=== PATIENT | female | born 1950 | race Caucasian/White ===

== ENCOUNTER 2021-10-22 13:21 | Emergency (ER) | payer OTHER ==
[~2021-10-22] VITALS: Ht 157 cm; Wt 170.0 kg
[2021-10-22 13:49] VITALS: BP 112/78
--- NOTE | 2021-10-22 14:12 | Diagnostic Imaging Report ---
CLINICAL INDICATION: Patient with cough with wheezing. EXAM: Portable chest x-ray, upright view. COMPARISONS: None. FINDINGS: There is cardiomegaly. There is no pulmonary vascular congestion. There is ground-glass opacification of the left lung base, which may be related to left heart border. There is curvilinear opacity in the right lung base, which may represent atelectasis. There is no pleural effusion or pneumothorax, as visualized. There are degenerative spurs involving the thoracic spine. IMPRESSION: 1: There is cardiomegaly with no significant pulmonary vascular congestion. 2: There is mild right lung base atelectasis. Dictated by: Dictated on workstation # [id number]
--- NOTE | 2021-10-22 14:46 | ED Cough/URI ---
General Chief Complaint: Respiratory Problems Nursing Triage Note: PRODUCTIVE COUGH WITH SOME WHEEZING. Source: patient Exam Limitations: no limitations History of Present Illness Date Seen by Provider: Oct 22, 2021 Time Seen by Provider: 13:30 Initial Comments Patient is a 71-year-old female with nasal congestion rhinorrhea, sore throat, cough and wheezing. History of COPD supplemental O2 to dependent on 3 L. Patient has multiple sick family members at home with upper respiratory tract illness. She and family members have been swab for influenza and Covid. Patient has tested negative. She reports persistent sore throat, cough with shortness of breath and wheezing. Patient does not currently have an inhaler no fever chills nausea vomiting or sweats. No chest pain. No leg pain or swelling. No other acute symptoms or complaints Timing/Duration: just prior to arrival Severity/Quality: mild Prior Episodes/Possible Cause: other Modifying Factors: Improves With Other Associated Symptoms: shortness of breath, wheezing Allergies and Home Medications Patient Home Medication List Home Medication List Reviewed: Yes Review of Systems Review of Systems Constitutional: see HPI EENTM: see HPI Respiratory: see HPI Cardiovascular: see HPI Gastrointestinal: see HPI Genitourinary: see HPI Musculoskeletal: see HPI Skin: see HPI Psychiatric/Neurological: See HPI Hematologic/Lymphatic: See HPI Immunological/Allergic: see HPI All Other Systems Reviewed Negative Unless Noted: Yes Past Fknwmkm-Aqkqox-Tpvzrd Hx Patient Social History Tobacco Use?: No Use of E-Cig and/or Vaping dev: No Substance use?: No Alcohol Use?: No Pt feels they are or have been: No Physical Exam Vital Signs - First Documented 10/22/21 13:49 Temp 36.2 Pulse 108 Resp 20 B/P (MAP) 112/78 (89) Pulse Ox 94 O2 Delivery Nasal Cannula O2 Flow Rate 3.00 Capillary Refill : Height: '" Weight: lbs. oz. 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, alert, oriented x 3 Focused Exam Sepsis Stage: Ruled Out Time of Focused Exam: 14:44 Progress/Results/Core Measures Suspected Sepsis SIRS Temperature: Pulse: 108 Respiratory Rate: 20 Blood Pressure 112 /78 Mean: 89 Results/Orders My Orders Orders - CHONGYONI TA Chest 1 View Ap/Pa Only (10/22/21 13:52) Vital Signs/I&O 10/22/21 10/22/21 13:49 13:49 Temp 36.2 Pulse 108 Resp 20 B/P (MAP) 112/78 (89) Pulse Ox 94 O2 Delivery Nasal Cannula Nasal Cannula O2 Flow Rate 3.00 Capillary Refill : Blood Pressure Mean: 89 Departure Communication (Admissions) Chest x-ray: No acute cardiopulmonary compromise Patient with upper respiratory tract infection with mild COPD exacerbation. Chest x-ray clear. Recommendations are continued therapeutic care with PCP follow-up. Return precautions reviewed. Patient verbalizes understanding agreement of discharge instructions prior to departure. Impression Primary Impression: Upper respiratory infection Additional Impression: COPD exacerbation Disposition: 01 HOME, SELF-CARE Condition: Stable Departure-Patient Inst. Decision time for Depature: 14:47 Patient Instructions: Acute Bronchitis, Adult (DC), Exacerbation of COPD (DC) Add. Discharge Instructions: You were evaluated in the emergency department for respiratory tract symptoms with cough and wheezing. A chest x-ray was performed does not show evidence of pneumonia. Your symptoms are consistent with an upper respiratory tract infection with exacerbation of underlying COPD. Please take newly prescribed medication as directed and follow-up with your PCP in 3 to 5 days for reevaluation. Return to the ED if new or worsening symptoms. All discharge instructions reviewed with patient and/or family. Voiced understanding. Scripts Albuterol Sulfate (Proventil Hfa) 6.7 Gm Hfa.aer.ad 6.7 GM INH Q4H, #1 GM Prov: YONI SCHWARZ DO 10/22/21 Benzonatate (TESSALON PERLES) 100 Mg Capsule 100 MG PO TID, #20 CAP Prov: YONI SCHWARZ DO 10/22/21 Azithromycin (Zithromax) 250 Mg Tablet 250 MG PO UD, #6 TAB TAKE 2 TABLETS TODAY, THEN TAKE 1 TABLET DAILY FOR 4 MORE DAYS Prov: YONI SCHWARZ DO 10/22/21 Prednisone (Prednisone) 20 Mg Tab 40 MG PO DAILY, #6 TAB 0 Refills Prov: YONI SCHWARZ DO 10/22/21 YONI SCHWARZ DO Oct 22, 2021 14:45
[2021-10-22] MEDS ORDERED: ALBU6.7H8 INH (14:51)
[2021-10-22] MEDS ORDERED: AZIT250T PO (14:51)
[2021-10-22] MEDS ORDERED: PRD20T PO (14:51)
[2021-10-22] MEDS ORDERED: BENZ100C18 PO (14:51)
== END 2021-10-22 15:00 | disposition home or self-care (01) ==
LOC: ER FS 13:24
DX: J06.9 Acute upper respiratory infection, unspecified (principal); J44.1 Chronic obstructive pulmonary disease with (acute) exacerbation; E66.9 Obesity, unspecified; Z68.44 Body mass index [BMI] 60.0-69.9, adult
CPT/HCPCS: 71045

== ENCOUNTER → 2021-11-12 | Outpatient (CLI) | payer MEDICARE ==
[~2021-11-12] MED LIST: ALBU6.7H8 INH; AZIT250T PO; BENZ100C18 PO; PRD20T PO
[2021-11-12 17:39] LABS: HEMATOCRIT 30 % (35-52); HEMOGLOBIN 8.4 g/dL (11.5-16.0); MEAN CORPUSCULAR HEMOGLOBIN 22 pg (25-34); MEAN CORPUSCULAR HGB CONC 28 g/dL (32-36); MEAN CORPUSCULAR VOLUME 78 fL (80-99); MEAN PLATELET VOLUME 10.7 fL (9.0-12.2); PLATELET COUNT 350 10^3/uL (130-400); WHITE BLOOD COUNT 6.4 10^3/uL (4.3-11.0)
[2021-11-12 17:40] LABS: BASOPHILS % (AUTO) 0 % (0-10); EOSINOPHILS # (AUTO) 0.1 10^3/uL (0.0-0.3); EOSINOPHILS % (AUTO) 2 % (0-10); LYMPHOCYTES # (AUTO) 1.2 X 10^3 (1.0-4.0); LYMPHOCYTES % (AUTO) 19 % (12-44); MONOCYTES # (AUTO) 0.4 X 10^3 (0.0-1.0); MONOCYTES % (AUTO) 7 % (0-12); NEUTROPHILS # (AUTO) 4.6 X 10^3 (1.8-7.8); NEUTROPHILS % (AUTO) 72 % (42-75)
[2021-11-12 17:41] LABS: CREATININE SERUM 0.96 MG/DL (0.60-1.30); POTASSIUM 3.8 MMOL/L (3.6-5.0)
[2021-11-12 17:42] LABS: ALBUMIN 3.2 GM/DL (3.2-4.5); BILIRUBIN,TOTAL 0.3 MG/DL (0.1-1.0); CALCIUM 8.7 MG/DL (8.5-10.1); MAGNESIUM 1.9 MG/DL (1.6-2.4); TOTAL PROTEIN 7.1 GM/DL (6.4-8.2)
[2021-11-12 20:18] LABS: FREE T4 (FREE THYROXINE) 1.06 NG/DL (0.70-1.48)
== END ==
LOC: LAB FS 15:59
PROVIDERS: ATTEND Registered Nurse Emergency
DX: I48.91 Unspecified atrial fibrillation (principal); E78.5 Hyperlipidemia, unspecified; E11.9 Type 2 diabetes mellitus without complications; R60.0 Localized edema; Z86.2 Personal history of diseases of the blood and blood-forming organs and certain disorders involving the immune mechanism
CPT/HCPCS: 36415; 80053; 80061; 83036; 83735; 83880; 84439; 84443; 85025; 87070; 87205

== ENCOUNTER 2021-12-03 19:11 | Inpatient (IN) | payer MEDICARE ==
[~2021-12-03] VITALS: Ht 162.5 cm; Wt 130.2 kg
[2021-12-03 19:42] LABS: BASOPHILS % (AUTO) 0 % (0-10); EOSINOPHILS # (AUTO) 0.1 10^3/uL (0.0-0.3); EOSINOPHILS % (AUTO) 0 % (0-10); HEMATOCRIT 22 % (35-52); LYMPHOCYTES # (AUTO) 0.7 10^3/uL (1.0-4.0); LYMPHOCYTES % (AUTO) 6 % (12-44); MEAN CORPUSCULAR HEMOGLOBIN 22 pg (25-34); MEAN CORPUSCULAR HGB CONC 27 g/dL (32-36); MEAN CORPUSCULAR VOLUME 84 fL (80-99); MONOCYTES # (AUTO) 0.5 10^3/uL (0.0-1.0); MONOCYTES % (AUTO) 5 % (0-12); NEUTROPHILS # (AUTO) 9.9 10^3/uL (1.8-7.8); NEUTROPHILS % (AUTO) 88 % (42-75); PLATELET COUNT 293 10^3/uL (130-400); WHITE BLOOD COUNT 11.3 10^3/uL (4.3-11.0)
--- NOTE | 2021-12-03 19:47 | Diagnostic Imaging Report ---
INDICATION: Shortness of air. TIME OF EXAM: 7:30 PM CORRELATION is made with prior chest 10/22/2021. Heart is enlarged. Enlarged heart does obscure the left lung base. There is central congestion. There appears to be some developing infiltrate in the right base. Upper lung jain are fairly clear. No pneumothorax is seen. IMPRESSION: Cardiomegaly. There appears to be some developing infiltrate or atelectasis in the right base. Dictated by: Dictated on workstation # [id number]
[2021-12-03 20:02] LABS: ANISOCYTOSIS MODERATE; BAND NEUTROPHILS 4 %; HYPOCHROMASIA MARKED; LYMPHOCYTES % (MANUAL) 5 %; METAMYELOCYTES % 1 %; MONOCYTES % (MANUAL) 5 %; NEUTROPHILS % (MANUAL) 85 %; NUCLEATED RED BLOOD CELLS 1; PLATELET ESTIMATE NORMAL; POIKILOCYTOSIS MODERATE; POLYCHROMASIA MODERATE; RBC MORPH ABNORMAL
[2021-12-03 20:03] LABS: ELLIPT/OVALOCYTES SLIGHT; TARGET CELLS SLIGHT; TEAR DROP CELLS SLIGHT
[2021-12-03 20:09] LABS: BUN/CREATININE RATIO 33; CARBON DIOXIDE 35 MMOL/L (21-32); CHLORIDE 88 MMOL/L (98-107); CREATININE SERUM 0.84 MG/DL (0.60-1.30); GFR ESTIMATED 75; POTASSIUM 4.6 MMOL/L (3.6-5.0); SODIUM 134 MMOL/L (135-145)
[2021-12-03 20:10] LABS: ALANINE AMINOTRANSFERASE 8 U/L (0-55); ALKALINE PHOSPHATASE 83 U/L (40-136); BILIRUBIN,TOTAL 0.4 MG/DL (0.1-1.0); CALCIUM 8.8 MG/DL (8.5-10.1); GLUCOSE 229 MG/DL (70-105); TOTAL PROTEIN 7.5 GM/DL (6.4-8.2)
--- NOTE | 2021-12-03 20:52 | ED Respiratory ---
General Chief Complaint: Respiratory Problems Stated Complaint: SOB Nursing Triage Note: Pt brought in by ems with the complaint of shortness of breath. Pt received a duoneb en route to the ED. Pt has a hx of copd and wears home oxygen Source: patient, EMS Exam Limitations: no limitations History of Present Illness Date Seen by Provider: Dec 03, 2021 Time Seen by Provider: 19:20 Initial Comments Patient is a 71-year-old female with history of chronic respiratory failure COPD, morbid obesity who presents with shortness of breath. Patient wears 5 L of oxygen at baseline. She reports feeling short of breath this evening. EMS were contacted and the patient was given an albuterol treatment with return of O2 saturations to upper 90s. Patient also reports feeling anxious. She denies chest pain or chest tightness. Patient did miss her evening dose of anxiety medications. She denies cough, sore throat, fever chills, and sweats. Patient has a chronic nonhealing left pannus wound. She denies increased leg pain or swelling. No other acute symptoms or complaints Timing/Duration: just prior to arrival Severity: mild Prior Episodes/Possible Cause: other Modifying Factors: Improves With Other Associated Symptoms: other Allergies and Home Medications Allergies Coded Allergies: No Known Drug Allergies (Unverified , 12/03/21) Patient Home Medication List Home Medication List Reviewed: Yes Albuterol Sulfate (Proventil Hfa) 6.7 Gm Hfa.aer.ad, 6.7 GM INH Q4H Prescribed by: YONI SCHWARZ on 10/22/21 145 Azithromycin (Zithromax) 250 Mg Tablet, 250 MG PO UD Prescribed by: YONI SCHWARZ on 10/22/21 145 Benzonatate (Tessalon Perles) 100 Mg Capsule, 100 MG PO TID Prescribed by: YONI SCHWARZ on 10/22/21 145 Prednisone (Prednisone) 20 Mg Tab, 40 MG PO DAILY Prescribed by: YONI SCHWARZ on 10/22/21 145 Review of Systems Review of Systems Constitutional: see HPI EENTM: see HPI Respiratory: see HPI Cardiovascular: see HPI Gastrointestinal: see HPI Genitourinary: see HPI Musculoskeletal: see HPI Skin: see HPI Psychiatric/Neurological: See HPI Hematologic/Lymphatic: See HPI Immunological/Allergic: see HPI All Other Systems Reviewed Negative Unless Noted: Yes Past Bknojvp-Imlvki-Btkecu Hx Patient Social History Tobacco Use?: No Smoking Status: Former Smoker Use of E-Cig and/or Vaping dev: No Substance use?: No Alcohol Use?: No Pt feels they are or have been: No Physical Exam Vital Signs - First Documented 12/03/21 19:12 Temp 36.8 Pulse 112 Resp 22 B/P (MAP) 110/57 (74) Pulse Ox 100 O2 Delivery Nasal Cannula O2 Flow Rate 5.00 Capillary Refill : Height: '" Weight: lbs. oz. kg; 68.00 BMI Method: General Appearance: WD/WN, no apparent distress, obese Eyes: Bilateral Eye Normal Inspection, Bilateral Eye PERRL HEENT: PERRL/EOMI Neck: non-tender, supple Respiratory: decreased breath sounds, rhonchi (Mild diffuse), other (Cough tachypnea) Cardiovascular: regular rate, rhythm Gastrointestinal: soft, other (Obesity compromising exam, left lower pannus wound bandaged) Extremities: normal range of motion, non-tender Neurologic/Psychiatric: no motor/sensory deficits, alert, oriented x 3 Focused Exam Sepsis Stage: Ruled Out Progress/Results/Core Measures Suspected Sepsis SIRS Temperature: Pulse: 112 Respiratory Rate: 22 Laboratory Tests 12/03/21 19:25: White Blood Count 11.3H Blood Pressure 110 /57 Mean: 74 Laboratory Tests 12/03/21 19:25: Creatinine 0.84, Platelet Count 293, Total Bilirubin 0.4 Results/Orders Lab Results Laboratory Tests Test 12/03/21 19:25 Range/Units White Blood Count 11.3 H 4.3-11.0 10^3/uL Red Blood Count 2.68 L 3.80-5.11 10^6/uL Hemoglobin 6.0 *L 11.5-16.0 g/dL Hematocrit 22 L 35-52 % Mean Corpuscular Volume 84 80-99 fL Mean Corpuscular Hemoglobin 22 L 25-34 pg Mean Corpuscular Hemoglobin Concent 27 L 32-36 g/dL Red Cell Distribution Width 21.6 H 10.0-14.5 % Platelet Count 293 130-400 10^3/uL Mean Platelet Volume 11.0 9.0-12.2 fL Immature Granulocyte % (Auto) 1 % Neutrophils (%) (Auto) 88 H 42-75 % Lymphocytes (%) (Auto) 6 L 12-44 % Monocytes (%) (Auto) 5 0-12 % Eosinophils (%) (Auto) 0 0-10 % Basophils (%) (Auto) 0 0-10 % Neutrophils # (Auto) 9.9 H 1.8-7.8 10^3/uL Lymphocytes # (Auto) 0.7 L 1.0-4.0 10^3/uL Monocytes # (Auto) 0.5 0.0-1.0 10^3/uL Eosinophils # (Auto) 0.1 0.0-0.3 10^3/uL Basophils # (Auto) 0.0 0.0-0.1 10^3/uL Immature Granulocyte # (Auto) 0.1 0.0-0.1 10^3/uL Neutrophils % (Manual) 85 % Lymphocytes % (Manual) 5 % Monocytes % (Manual) 5 % Metamyelocytes % 1 % Band Neutrophils 4 % Nucleated Red Blood Cells 1 Platelet Estimate NORMAL Polychromasia MODERATE Hypochromasia MARKED Poikilocytosis MODERATE Anisocytosis MODERATE Target Cells SLIGHT Tear Drop Cells SLIGHT Elliptocytes SLIGHT Blood Morphology Comment ABNORMAL Sodium Level 134 L 135-145 MMOL/L Potassium Level 4.6 3.6-5.0 MMOL/L Chloride Level 88 L 98-107 MMOL/L Carbon Dioxide Level 35 H 21-32 MMOL/L Anion Gap 11 5-14 MMOL/L Blood Urea Nitrogen 28 H 7-18 MG/DL Creatinine 0.84 0.60-1.30 MG/DL Estimat Glomerular Filtration Rate 75 BUN/Creatinine Ratio 33 Glucose Level 229 H 70-105 MG/DL Calcium Level 8.8 8.5-10.1 MG/DL Corrected Calcium 9.6 8.5-10.1 MG/DL Total Bilirubin 0.4 0.1-1.0 MG/DL Aspartate Amino Transf (AST/SGOT) 12 5-34 U/L Alanine Aminotransferase (ALT/SGPT) 8 0-55 U/L Alkaline Phosphatase 83 40-136 U/L Troponin I < 0.30 <0.30 NG/ML Pro-B-Type Natriuretic Peptide 6543.0 H <75.0 PG/ML Total Protein 7.5 6.4-8.2 GM/DL Albumin 3.0 L 3.2-4.5 GM/DL My Orders Ravin - YONI SCHWARZ DO Cbc With Automated Diff (12/03/21 19:16) Comprehensive Metabolic Panel (12/03/21 19:16) Troponin I Fs (12/03/21 19:16) Probnp Fs (12/03/21 19:16) Chest 1 View Ap/Pa Only (12/03/21 19:16) Ekg Tracing (12/03/21 19:30) Manual Differential (12/03/21 19:25) Ed Iv/Invasive Line Start (12/03/21 21:12) Vital Signs/I&O 12/03/21 12/03/21 12/03/21 19:12 19:12 21:06 Temp 36.8 Pulse 112 103 Resp 22 18 B/P (MAP) 110/57 (74) 126/74 Pulse Ox 100 100 O2 Delivery Nasal Cannula Nasal Cannula Room Air O2 Flow Rate 5.00 5.00 Capillary Refill : Blood Pressure Mean: 74 Departure Communication (Admissions) Chest x-ray: Cardiomegaly without pulmonary vascular congestion Patient with mild COPD exacerbation with anemia likely contributing to dyspnea. Patient currently on iron. Dr. Bowen to admit to [facility] Impression Primary Impression: Anemia Additional Impression: COPD exacerbation Disposition: ADMITTED INPATIENT Condition: Stable Admissions Decision to Admit Reason: Admit from ER (General) Decision to Admit/Date: Dec 03, 2021 Time/Decision to Admit Time: 20:00 Departure-Patient Inst. Referrals: MARKEL SEBASTIAN MD (PCP/Family) Primary Care Physician YONI SCHWARZ DO Dec 03, 2021 20:52
[2021-12-03] MEDS ORDERED: diphenhydrAMINE 25 MG TAB (BENADRYL) PO PRN (23:00)
[2021-12-03] MEDS ORDERED: NS IV 500 ML 500 ML IV SCH (23:00)
[2021-12-03] MEDS ORDERED: BISACODYL 10 MG SUPP (DULCOLAX) PR PRN (23:00)
[2021-12-03] MEDS ORDERED: diphenhydrAMINE 50 MG/ML INJ (BENADRYL) IVP PRN (23:00)
[2021-12-03] MEDS ORDERED: polyethylene glycoL POWDER 17 GM (MIRALAX) PACK PO PRN (23:00)
[2021-12-03] MEDS ORDERED: ONDANSETRON 4 MG (ZOFRAN) ORAL DISSOLVE TAB PO PRN (23:00)
[2021-12-03] MEDS ORDERED: ONDANSETRON 4 MG/2 ML (SDV) Z0FRAN IV PRN (23:00)
[2021-12-03] MEDS ORDERED: FUROSEMIDE 40 MG/4 ML INJ (LASIX) IVP ONE (23:00)
[2021-12-03] MEDS ORDERED: ANTACID SUSP 30 ML UDC (MYLANTA) PO PRN (23:00)
[2021-12-03 23:12] VITALS: BP 117/63
[2021-12-03 23:23] LABS: BASOPHILS % (AUTO) 0 % (0-10); EOSINOPHILS % (AUTO) 0 % (0-10); HEMATOCRIT 22 % (35-52); LYMPHOCYTES # (AUTO) 0.7 10^3/uL (1.0-4.0); LYMPHOCYTES % (AUTO) 6 % (12-44); MEAN CORPUSCULAR HEMOGLOBIN 22 pg (25-34); MEAN CORPUSCULAR HGB CONC 26 g/dL (32-36); MEAN CORPUSCULAR VOLUME 85 fL (80-99); MEAN PLATELET VOLUME 10.4 fL (9.0-12.2); MONOCYTES # (AUTO) 0.5 10^3/uL (0.0-1.0); MONOCYTES % (AUTO) 5 % (0-12); NEUTROPHILS # (AUTO) 9.8 10^3/uL (1.8-7.8); NEUTROPHILS % (AUTO) 87 % (42-75); PLATELET COUNT 279 10^3/uL (130-400); WHITE BLOOD COUNT 11.2 10^3/uL (4.3-11.0)
[2021-12-03 23:26] LABS: HEMOGLOBIN 5.7 g/dL (11.5-16.0)
[2021-12-04] VITALS (16 sets, daily range): BP systolic 102–134; BP diastolic 53–87
[2021-12-04] MEDS ORDERED: RT-ALBUTEROL HFA 8.5 GM INHALER IH PRN (00:30)
[2021-12-04] MEDS: ALPRAZolam 0.25 MG (XANAX) TAB PO PRN ×4 (00:32→21:04)
[2021-12-04] MEDS: MELATONIN 3 MG TABLET PO PRN (00:32)
[2021-12-04] MEDS: HYDROcodone/APAP 5 MG/325 MG (LORTAB) TAB PO PRN ×3 (00:32→18:35)
[2021-12-04] MEDS ORDERED: FUROSEMIDE 40 MG/4 ML INJ (LASIX) ONE (05:38)
[2021-12-04] MEDS ORDERED: PANTOPRAZOLE 40 MG (PROTONIX) VIAL IV ONE (06:15)
[2021-12-04 06:39] LABS: BASOPHILS % (AUTO) 0 % (0-10); EOSINOPHILS % (AUTO) 0 % (0-10); HEMATOCRIT 23 % (35-52); LYMPHOCYTES # (AUTO) 0.9 10^3/uL (1.0-4.0); LYMPHOCYTES % (AUTO) 9 % (12-44); MEAN CORPUSCULAR HEMOGLOBIN 23 pg (25-34); MEAN CORPUSCULAR HGB CONC 27 g/dL (32-36); MEAN CORPUSCULAR VOLUME 85 fL (80-99); MEAN PLATELET VOLUME 10.7 fL (9.0-12.2); MONOCYTES # (AUTO) 0.7 10^3/uL (0.0-1.0); MONOCYTES % (AUTO) 7 % (0-12); NEUTROPHILS # (AUTO) 8.4 10^3/uL (1.8-7.8); NEUTROPHILS % (AUTO) 82 % (42-75); PLATELET COUNT 279 10^3/uL (130-400); WHITE BLOOD COUNT 10.2 10^3/uL (4.3-11.0)
[2021-12-04 06:43] LABS: HEMOGLOBIN 6.2 g/dL (11.5-16.0)
[2021-12-04 06:51] LABS: POTASSIUM 4.9 MMOL/L (3.6-5.0)
[2021-12-04 06:52] LABS: CALCIUM 8.5 MG/DL (8.5-10.1)
[2021-12-04 06:53] LABS: TOTAL PROTEIN 6.8 GM/DL (6.4-8.2)
[2021-12-04 06:55] LABS: BILIRUBIN,TOTAL 0.6 MG/DL (0.1-1.0)
[2021-12-04 06:57] LABS: CREATININE SERUM 0.98 MG/DL (0.60-1.30)
[2021-12-04] MEDS ORDERED: NS IV 500 ML 500 ML IV SCH (08:00)
[2021-12-04 08:01] LABS: BILIRUBIN,URINE NEGATIVE (NEGATIVE); CLARITY,URINE CLEAR; COLOR,URINE YELLOW; GLUCOSE, URINE (UA) NEGATIVE (NEGATIVE); KETONES,URINE NEGATIVE (NEGATIVE); LEUKOCYTE ESTERASE ,URINE 2+ (NEGATIVE); NITRITE,URINE NEGATIVE (NEGATIVE); PH,URINE 5.5 (5-9); PROTEIN,URINE TRACE (NEGATIVE)
--- NOTE | 2021-12-04 08:03 | History & Physical ---
History of Present Illness HPI/Chief Complaint CC: Severe weakness with SOB HPI: 71 yr old WF who lives with her family who has a history of super morbid obesity and a chronic abdominal wall wound who presented to the ER with SOB. She was fully vaccinated against Covid and boosted but PCR hasn't come back but rapid was negative. She was found to have severe anemia with hemoglobin of 6 and repeat was 5.7 with dark stools. She was given a total of 2 units of blood and Dr. Haddad consulted and will perform EGD in the near future. She is very debilitated. Will update social work on the need to be on alert for jail admission. Source: patient Exam Limitations: clinical condition Date Seen 12/04/21 Time Seen by a Provider: 11:00 Attending Physician Jia Bowen Katrina M MD Referring Physician Date of Admission Dec 03, 2021 at 22:30 Home Medications & Allergies Home Medications Reviewed patient Home Medication Reconciliation performed by pharmacy medication reconciliations sprinkler repair technician and/or nursing. Patients Allergies have been reviewed. Allergies Allergies Coded Allergies No Known Drug Allergies (Unverified12/03/21) Past Qmdqoha-Qrnhpe-Yfbiwd Hx Past Med/Social Hx: Reviewed Nursing Past Med/Soc Hx, Reviewed and Corrections made Patient Social History Marrital Status: single Employed/Student: retired Alcohol Use: Denies Use Smoking Status: Former Smoker Recent Infectious Disease Expo: No Past Medical History Cardiac: Atrial Fibrillation, High Cholesterol, Hypertension Neurological: Neuropathy Genitourinary: Bladder Infection Endocrine: Diabetes, Non-Insulin dep Review of Systems Constitutional: see HPI, malaise, weakness EENTM: no symptoms reported Respiratory: no symptoms reported Cardiovascular: no symptoms reported Gastrointestinal: abdominal pain, loss of appetite, melena, nausea Genitourinary: decreased output Musculoskeletal: back pain, joint pain Skin: no symptoms reported Psychiatric/Neurological: No Symptoms Reported All Other Systems Reviewed Negative Unless Noted: Yes Physical Exam Physical Exam Vital Signs Vital Signs - First Documented 12/03/21 12/04/21 19:12 00:04 Temp 36.8 Pulse 112 Resp 22 B/P (MAP) 110/57 (74) Pulse Ox 100 O2 Delivery Nasal Cannula O2 Flow Rate 5.00 FiO2 40 Capillary Refill : Height, Weight, BMI Height: '" Weight: lbs. oz. kg; 49.11 BMI Method: General Appearance: WD/WN, Anxious, Chronically ill, Mild Distress, Obese Eyes: Bilateral Eye Normal Inspection, Bilateral Eye PERRL HEENT: PERRL/EOMI, Normal ENT Inspection, Pharynx Normal Neck: Full Range of Motion, Normal Inspection, Non Tender, Supple, Carotid Bruit Respiratory: Chest Non Tender, Lungs Clear, No Accessory Muscle Use, No Respiratory Distress, Decreased Breath Sounds Cardiovascular: No Edema, No Gallop, No JVD, No Murmur, Normal Peripheral Pulses, Irregularly Irregular Gastrointestinal: Normal Bowel Sounds, No Organomegaly, No Pulsatile Mass, Non Tender, Soft Back: Normal Inspection, No CVA Tenderness, No Vertebral Tenderness Extremity: Normal Capillary Refill, Normal Inspection, Normal Range of Motion, Non Tender, No Calf Tenderness, No Pedal Edema Neurologic/Psychiatric: Alert, Oriented x3, No Motor/Sensory Deficits, Normal Mood/Affect Skin: Normal Color, Warm/Dry, Other (Draining abdominal wound) Lymphatic: No Adenopathy Results Results/Procedures Labs Laboratory Tests 12/03/21 19:25 12/03/21 23:13 12/04/21 06:03 Patient resulted labs reviewed. Assessment/Plan Admission Diagnosis Assessment: Severe symptomatic anemia GI bleed Transfusion required Hypertension Atrial fibrillation Anticoagulation maintained for CVA prophylaxis currently on hold Abdominal wound chronic Depression with suicidal ideation reported by nurse Super morbid obesity BMI 47 Severe debility Neuropathy Plan: Transfuse Consult surgery Wound care Hold anticoagulation Bagley catheter maintained due to severe debility Needs jail Consult cardiology Admission Status: Inpatient Order (span 2 midnights) Reason for Inpatient Admission: Severe anemia with GI bleed Clinical Quality Measures DVT/VTE Risk/Contraindication: Contraindications-Pharm: Other *list below* Other: severe anemia JIA BOWEN DO Dec 04, 2021 08:03
[2021-12-04 08:28] LABS: BACTERIA,URINE MODERATE /HPF; RBC,URINE 0-2 /HPF; SQUAMOUS EPITHELIAL CELL,UR 0-2 /HPF; WBC,URINE 50-100 /HPF
--- NOTE | 2021-12-04 08:29 | Diagnostic Imaging Report ---
Indication: CHF Frontal chest obtained at 811 a.m. compared to yesterday. There is marked cardiomegaly. There is central vascular congestion and interstitial edema. These findings are similar to the prior study. There is no definite consolidation or pleural fluid. Study is somewhat technically limited. IMPRESSION: Cardiomegaly with central vascular congestion with edema. Technically limited study but no definite consolidation or pleural fluid. Dictated by: Dictated on workstation # [id number]
[2021-12-04] MEDS ORDERED: PANTOPRAZOLE 40 MG (PROTONIX) TAB PO SCH (09:00)
--- NOTE | 2021-12-04 09:03 | Consultation-Cardiology ---
HPI-Cardiology Cardiology Consultation: Date of Consultation 12/04/21 Time Seen by a Provider: 09:30 Date of Admission 12-03-21 Attending Physician Jia Clark DO Admitting Physician Génesis Farris MD Consulting Physician Cory Ash MD HPI: Chief Complaint: Progressive dyspnea Ms. Pedro is a 71 yr old female admitted to [facility] from the ED with increasing SOB. She was found to be anemic (Hgb less than 7.0). She has recently moved to the [facility] from [place]. She does not report any CP, palpitations. She reports she is w/c bound. She reports she has a wound to her abd. She is lethargic this morning and has to be awakened frequently during the exam. She states she has a-fib chronically for which she was on OAC, but does recall the name of the OAC she is taking. No c/o LE swelling. No c/o cough. Review of Systems-Cardiology Review of Systems Constitutional: No chills, No fever; malaise Eyes: No vision change Ears/Nose/Throat: No epistaxis, No recent hearing loss Respiratory: As described under HPI Cardiovascular: As described under HPI Gastrointestinal: No diarrhea, No nausea, No vomiting Genitourinary: No dysuria Musculoskeletal: joint pain, muscle pain Skin: As described under HPI Psychiatric/Neurological: anxiety, depression; No seizure, No focal weakness, No syncope Hematologic: anemia All Other Systems Reviewed Negative Unless Noted: Yes IMP-Zmpqug-Keaxyd Hx Patient Social History Smoking Status: Former Smoker Have you traveled recently?: No Alcohol Use?: No Pt feels they are or have been: No Past Medical History PMH As described under Assessment. Family Medical History Family Medical History: No known family h/o CAD reported Allergies and Home Medications Allergies Coded Allergies: No Known Drug Allergies (Unverified , 12/03/21) Patient Home Medication List Acetaminophen (Tylenol Extra Strength) 500 Mg Tablet, 1,000 MG PO HS, (Reported) Entered as Reported by: BRICE WATERS on 12/04/21 1213 Last Action: Continued Albuterol Sulfate (Albuterol Sulfate) 2.5 Mg/3 Ml Vial.neb, 3 ML NEB Q4H PRN for SHORTNESS OF BREATH, (Reported) Entered as Reported by: BRICE WATERS on 12/04/21 121 Last Action: Continued Amiodarone HCl (Amiodarone HCl) 200 Mg Tablet, 200 MG PO DAILY, (Reported) Entered as Reported by: BRICE WATERS on 12/04/211212 Last Action: Continued Apixaban (Eliquis) 5 Mg Tablet, 5 MG PO BID, (Reported) Entered as Reported by: BRICE WATERS on 12/04/211212 Last Action: Held Ferrous Sulfate (Ferrous Sulfate) 325 Mg Tablet, 325 MG PO BID, (Reported) Entered as Reported by: BRICE WATERS on 12/04/211213 Last Action: Held Furosemide (Furosemide) 40 Mg Tablet, 40 MG PO DAILY, (Reported) Entered as Reported by: BRICE WATERS on 12/04/211212 Last Action: Held Gabapentin (Neurontin) 300 Mg Capsule, 300 MG PO BID, (Reported) Entered as Reported by: BRICE WATERS on 12/04/211212 Last Action: Continued Metformin HCl (Metformin HCl) 1,000 Mg Tablet, 1,000 MG PO BID, (Reported) Entered as Reported by: BRICE WATERS on 12/04/211212 Last Action: Held Potassium Chloride (Potassium Chloride) 20 Meq Tab.er.prt, 20 MEQ PO 1200, (Reported) Entered as Reported by: BRICE WATERS on 12/04/211212 Last Action: Held Discontinued Medications Albuterol Sulfate (Proventil Hfa) 6.7 Gm Hfa.aer.ad, 6.7 GM INH Q4H Discontinued Reason: No Longer Taking Prescribed by: YONI SCHWARZ on 10/22/211450 Last Action: Discontinued Azithromycin (Zithromax) 250 Mg Tablet, 250 MG PO UD Discontinued Reason: No Longer Taking Prescribed by: YONI SCHWARZ on 10/22/211450 Last Action: Discontinued Benzonatate (Tessalon Perles) 100 Mg Capsule, 100 MG PO TID Discontinued Reason: No Longer Taking Prescribed by: YONI SCHWARZ on 10/22/211450 Last Action: Discontinued Prednisone (Prednisone) 20 Mg Tab, 40 MG PO DAILY Discontinued Reason: No Longer Taking Prescribed by: YONI SCHWARZ on 10/22/211450 Last Action: Discontinued Physical Exam-Cardiology Physical Exam Vital Signs/I&O 12/05/21 12/06/21 12/06/21 12/06/21 21:27 00:30 04:30 08:00 Temp 36.4 36.6 36.0 35.6 Pulse 95 95 107 Resp 18 18 16 B/P (MAP) 138/77 (97) 143/64 (90) 115/61 (79) Pulse Ox 95 94 90 O2 Delivery Nasal Cannula Nasal Cannula Nasal Cannula O2 Flow Rate 4.00 4.00 5.00 12/06/21 08:05 Pulse 107 Resp 24 Pulse Ox 94 O2 Delivery OxyMask 12/06/21 00:00 Intake Total 3158 ml Output Total 914 ml Balance 2244 ml Capillary Refill : Constitutional: AAO x 3, other (morbidly obese) HEENT: hearing is well preserved; No oral hygience is good (dental carries) Neck: No carotid bruit; carotid pulses are 2 + bilaterally Respiratory: No accessory muscle use, No respiratory distress; chest expansion is symmetric, chest is bilaterally symmetric, other (good air entry) Cardiovascular: irregularly irregular; No JVD; S1 and S2, systolic murmur Gastrointestinal: No tender; soft; No guarding; audible bowel sounds Extremities: no lower extremity edema bilateral Neurologic/Psychiatric: grossly intact (moves all extremities) Skin: other (wound to abdomen with dressing in place; dressing D&I - not removed) Data Review Labs Laboratory Tests 12/05/21 20:30: Glucometer 179H 12/06/21 05:28: White Blood Count 11.4H, Red Blood Count 3.00L, Hemoglobin 7.0L, Hematocrit 26L, Mean Corpuscular Volume 87, Mean Corpuscular Hemoglobin 23L, Mean Corpuscular Hemoglobin Concent 27L, Red Cell Distribution Width 19.5H, Platelet Count 260, Mean Platelet Volume 10.3, Immature Granulocyte % (Auto) 3, Neutrophils (%) (Auto) 71, Lymphocytes (%) (Auto) 9L, Monocytes (%) (Auto) 16H, Eosinophils (%) (Auto) 0, Basophils (%) (Auto) 0, Neutrophils # (Auto) 8.1H, Lymphocytes # (Auto) 1.0, Monocytes # (Auto) 1.8H, Eosinophils # (Auto) 0.0, Basophils # (Auto) 0.0, Immature Granulocyte # (Auto) 0.3H, Sodium Level 132L, Potassium Level 4.1, Chloride Level 84L, Carbon Dioxide Level 36H, Anion Gap 12, Blood Urea Nitrogen 25H, Creatinine 0.91, Estimat Glomerular Filtration Rate 68, BUN/Creatinine Ratio 27, Glucose Level 155H, Calcium Level 8.6, Corrected Calcium 9.3, Total Bilirubin 0.4, Aspartate Amino Transf (AST/SGOT) 11, Alanine Aminotransferase (ALT/SGPT) 13, Alkaline Phosphatase 74, Total Protein 6.8, Albumin 3.1L Microbiology 12/04/21 Urine Culture - Preliminary, Resulted Mixed Bacterial Chelly Klebsiella pneumoniae Escherichia coli Testing In Progress 12/03/21 MRSA Screen - Final, Complete MRSA not isolated Radiology NAME: ROQUE PEDRO [facility] REC#: [id number] PT STATUS: ADM IN : 1950 PHYSICIAN: JIA CLARK DO ADMIT DATE: 12/03/21 Draft Date of Exam:12/04/21 CHEST 1 VIEW, AP/PA ONLY Indication: CHF Frontal chest obtained at 811 a.m. compared to yesterday. There is marked cardiomegaly. There is central vascular congestion and interstitial edema. These findings are similar to the prior study. There is no definite consolidation or pleural fluid. Study is somewhat technically limited. IMPRESSION: Cardiomegaly with central vascular congestion with edema. Technically limited study but no definite consolidation or pleural fluid. Dictated on workstation # [id number] Dict: 12/04/21822 Trans: 12/04/21828 [facility] [id number] Interpreted by: RUFINA OSORIO MD Electronically signed by: ECG Impression ECG Initial ECG Impression: Atrial Fibrillation A/P-Cardiology Assessment/Admission Diagnosis Progressive dyspnea Anemia of undetermined etiology - management per medical services Chronic a-fib (per pt report) - reports OAC, but is unclear as to exactly what she is taking HTN DM 2 COPD H/O Iron deficiency anemia Clinical Quality Measures DVT/VTE Risk/Contraindication: Contraindications-Pharm: Other *list below* Other: severe anemia HANANE ROTHMAN Dec 04, 2021 09:03
[2021-12-04] MEDS: RT-ALBUTEROL HFA 8.5 GM INHALER IH SCH ×4 (09:07→19:18)
[2021-12-04] MEDS: DOCUSATE SODIUM 100 MG (COLACE) CAP PO SCH ×3 (09:51→20:51)
[2021-12-04] MEDS ORDERED: LACTATED RINGERS 1,000 ML IV ONE (09:51)
--- NOTE | 2021-12-04 10:23 | Consultation - Surgery ---
MYRNA SALOMN 12/04/21 1023: History of Present Illness History of Present Illness Patient Consulted On(catrachita/time) 12/04/21 10:23 Date Seen by Provider: Dec 04, 2021 Time Seen by Provider: 12:50 Reason for Visit: black tarry stools; admitted for COPD exacerbation History of Present Illness Consulted by Dr. Bowen regarding pt's black tarry diarrhea. Pt was admitted for COPD exacerbation. Pt states the color is from her iron supplements. Pt noticed the tarry stools 3 days ago. She is NPO. Pt states she has no history with GI issues. Last bowel movement was last night. Pt may be an unreliable historian. Allergies and Home Medications Allergies Coded Allergies: No Known Drug Allergies (Unverified , 12/03/21) Patient Home Medication List Acetaminophen (Tylenol Extra Strength) 500 Mg Tablet, 1,000 MG PO HS, (Reported) Entered as Reported by: BRICE WATERS on 12/04/211212 Last Action: Continued Albuterol Sulfate (Albuterol Sulfate) 2.5 Mg/3 Ml Vial.neb, 3 ML NEB Q4H PRN for SHORTNESS OF BREATH, (Reported) Entered as Reported by: BRICE WATERS on 12/04/211212 Last Action: Continued Amiodarone HCl (Amiodarone HCl) 200 Mg Tablet, 200 MG PO DAILY, (Reported) Entered as Reported by: BRICE WATERS on 12/04/211212 Last Action: Continued Apixaban (Eliquis) 5 Mg Tablet, 5 MG PO BID, (Reported) Entered as Reported by: BRICE WATERS on 12/04/211212 Last Action: Held Ferrous Sulfate (Ferrous Sulfate) 325 Mg Tablet, 325 MG PO BID, (Reported) Entered as Reported by: BRICE WATERS on 12/04/211213 Last Action: Held Furosemide (Furosemide) 40 Mg Tablet, 40 MG PO DAILY, (Reported) Entered as Reported by: BRICE WATERS on 12/04/211212 Last Action: Held Gabapentin (Neurontin) 300 Mg Capsule, 300 MG PO BID, (Reported) Entered as Reported by: BRICE WATERS on 12/04/211212 Last Action: Continued Metformin HCl (Metformin HCl) 1,000 Mg Tablet, 1,000 MG PO BID, (Reported) Entered as Reported by: BRICE WATERS on 12/04/211212 Last Action: Held Potassium Chloride (Potassium Chloride) 20 Meq Tab.er.prt, 20 MEQ PO 1200, (Reported) Entered as Reported by: BRICE WATERS on 12/04/211212 Last Action: Held Discontinued Medications Albuterol Sulfate (Proventil Hfa) 6.7 Gm Hfa.aer.ad, 6.7 GM INH Q4H Discontinued Reason: No Longer Taking Prescribed by: YONI SCHWARZ on 10/22/211450 Last Action: Discontinued Azithromycin (Zithromax) 250 Mg Tablet, 250 MG PO UD Discontinued Reason: No Longer Taking Prescribed by: YONI SCHWARZ on 10/22/211450 Last Action: Discontinued Benzonatate (Tessalon Perles) 100 Mg Capsule, 100 MG PO TID Discontinued Reason: No Longer Taking Prescribed by: YONI SCHWARZ on 10/22/211450 Last Action: Discontinued Prednisone (Prednisone) 20 Mg Tab, 40 MG PO DAILY Discontinued Reason: No Longer Taking Prescribed by: YONI SCHWARZ on 10/22/211450 Last Action: Discontinued Past Pebmyle-Rklqek-Tidlzc Hx Patient Social History Smoking Status: Former Smoker Alcohol Use?: No Have you traveled recently?: No Respiratory Respiratory Disorders: COPD Cardiovascular Cardiac Disorders: Atrial Fibrillation Psychosocial Behavioral Health Disorders: Anxiety Integumentary Skin/Integumentary Disorders: Recent Skin Changes (pannus wound) Review of Systems-General Constitutional: No chills, No fever EENTM: ear pain; No blurred vision Respiratory: cough, phlegm, short of breath Cardiovascular: chest pain, palpitations Gastrointestinal: RUQ, RLQ, abdominal pain, diarrhea, melena Genitourinary: No decreased output, No pain Musculoskeletal: joint pain, muscle cramps (legs) Skin: dryness, other (pannus wound) Psychiatric/Neurological: Denies Anxiety; Headache Physical Exam-General Problems Physical Exam Vital Signs Vital Signs - First Documented 12/03/21 12/04/21 19:12 00:04 Temp 36.8 Pulse 112 Resp 22 B/P (MAP) 110/57 (74) Pulse Ox 100 O2 Delivery Nasal Cannula O2 Flow Rate 5.00 FiO2 40 Capillary Refill : General Appearance: mild distress, obese Respiratory: rales, wheezing Cardiovascular: no murmur, tachycardia Gastrointestinal: no pulsatile mass, guarding, tenderness (RUQ RLQ) Extremities: normal inspection, no pedal edema Neurologic/Psychiatric: alert, normal mood/affect Skin: normal color, warm/dry Data Review Labs Laboratory Tests 12/03/21 19:25: White Blood Count 11.3H, Red Blood Count 2.68L, Hemoglobin 6.0*L, Hematocrit 22L , Mean Corpuscular Volume 84, Mean Corpuscular Hemoglobin 22L, Mean Corpuscular Hemoglobin Concent 27L, Red Cell Distribution Width 21.6H, Platelet Count 293, Mean Platelet Volume 11.0, Immature Granulocyte % (Auto) 1, Neutrophils (%) (Auto) 88H, Lymphocytes (%) (Auto) 6L, Monocytes (%) (Auto) 5, Eosinophils (%) (Auto) 0, Basophils (%) (Auto) 0, Neutrophils # (Auto) 9.9H, Lymphocytes # ( Auto) 0.7L, Monocytes # (Auto) 0.5, Eosinophils # (Auto) 0.1, Basophils # (Auto) 0.0, Immature Granulocyte # (Auto) 0.1, Neutrophils % (Manual) 85, Lymphocytes % (Manual) 5, Monocytes % (Manual) 5, Metamyelocytes % 1, Band Neutrophils 4, Nucleated Red Blood Cells 1, Platelet Estimate NORMAL, Polychromasia MODERATE, Hypochromasia MARKED, Poikilocytosis MODERATE, Anisocytosis MODERATE, Target Cells SLIGHT, Tear Drop Cells SLIGHT, Elliptocytes SLIGHT, Blood Morphology Comment ABNORMAL, Sodium Level 134L, Potassium Level 4.6, Chloride Level 88L, Carbon Dioxide Level 35H, Anion Gap 11, Blood Urea Nitrogen 28H, Creatinine 0.84, Estimat Glomerular Filtration Rate 75, BUN/Creatinine Ratio 33, Glucose Level 229H, Calcium Level 8.8, Corrected Calcium 9.6, Total Bilirubin 0.4, Aspa rtate Amino Transf (AST/SGOT) 12, Alanine Aminotransferase (ALT/SGPT) 8, Alkaline Phosphatase 83, Troponin I < 0.30, Pro-B-Type Natriuretic Peptide 6543.0H, Total Protein 7.5, Albumin 3.0L 12/03/21 23:13: White Blood Count 11.2H, Red Blood Count 2.55L, Hemoglobin 5.7*L, Hematocrit 22L , Mean Corpuscular Volume 85, Mean Corpuscular Hemoglobin 22L, Mean Corpuscular Hemoglobin Concent 26L, Red Cell Distribution Width 21.2H, Platelet Count 279, Mean Platelet Volume 10.4, Immature Granulocyte % (Auto) 1, Neutrophils (%) (Auto) 87H, Lymphocytes (%) (Auto) 6L, Monocytes (%) (Auto) 5, Eosinophils (%) (Auto) 0, Basophils (%) (Auto) 0, Neutrophils # (Auto) 9.8H, Lymphocytes # (Auto) 0.7L, Monocytes # (Auto) 0.5, Eosinophils # (Auto) 0.0, Basophils # (Auto) 0.0, Immature Granulocyte # (Auto) 0.1 12/03/21 23:33: Influenza Type A Antigen NEGATIVE, Influenza Type B Antigen NEGATIVE, SARS-CoV-2 RNA (RT-PCR) Not Detected 12/04/21 06:03: White Blood Count 10.2, Red Blood Count 2.72L, Hemoglobin 6.2*L, Hematocrit 23L, Mean Corpuscular Volume 85, Mean Corpuscular Hemoglobin 23L, Mean Corpuscular Hemoglobin Concent 27L, Red Cell Distribution Width 20.6H, Platelet Count 279, Mean Platelet Volume 10.7, Immature Granulocyte % (Auto) 2, Neutrophils (%) (Auto) 82H, Lymphocytes (%) (Auto) 9L, Monocytes (%) (Auto) 7, Eosinophils (%) (Auto) 0, Basophils (%) (Auto) 0, Neutrophils # (Auto) 8.4H, Lymphocytes # (Auto) 0.9L, Monocytes # (Auto) 0.7, Eosinophils # (Auto) 0.0, Basophils # (Auto) 0.0, Immature Granulocyte # (Auto) 0.2H, Sodium Level 132L, Potassium Level 4.9, Chloride Level 87L, Carbon Dioxide Level 35H, Anion Gap 10, Blood Urea Nitrogen 32H, Creatinine 0.98, Estimat Glomerular Filtration Rate 62, BUN/Creatinine Ratio 33, Glucose Level 190H, Calcium Level 8.5, Corrected Calcium 9.3, Total Bilirubin 0.6, Aspartate Amino Transf (AST/SGOT) 14, Alanine Aminotransferase (ALT/SGPT) 11, Alkaline Phosphatase 65, Total Protein 6.8, Albumin 3.0L 12/04/21 06:14: B-Type Natriuretic Peptide 672.6H 12/04/21 06:18: Urine Color YELLOW, Urine Clarity CLEAR, Urine pH 5.5, Urine Specific Shannon 1.025H, Urine Protein TRACEH, Urine Glucose (UA) NEGATIVE, Urine Ketones NEGATIVE, Urine Nitrite NEGATIVE, Urine Bilirubin NEGATIVE, Urine Urobilinogen 0.2, Urine Leukocyte Esterase 2+H, Urine RBC (Auto) 2+H, Urine RBC 0-2, Urine WBC 50-100H, Urine Squamous Epithelial Cells 0-2, Urine Crystals NONE, Urine Bacteria MODERATEH, Urine Casts NONE, Urine Mucus NEGATIVE, Urine Culture Indicated YES Assessment/Plan Assessment/Plan Admission Diagonsis COPD Exacerbation Assessment/Plan Melena Abdominal Pain COPD Anemia Perform an EGD Monitor labs Continue COPD regimen Clinical Quality Measures DVT/VTE Risk/Contraindication: Contraindications-Pharm: Other *list below* Other: severe anemia LETICIA GARZA DO 12/04/212025: History of Present Illness History of Present Illness History of Present Illness Consult requested by Dr. Bowen for anemia Patient is 71-year-old female poor historian. Patient with increasing shortness of breath. Patient was COPD on a regular basis. Patient states that she is having some dark-colored stools. She does take iron supplements she states which this is what is causing the discoloration. Patient hemoglobin was less than 7 upon admission. Patient states that it is typically low anyways. She recently moved from [place] to the area. Patient with a chronic pannus wound left lower abdomen. Patient reports being high risk. She also is wheelchair- bound due to a orthopedic injury/procedure. Patient has received 2 units packed red blood cells. Allergies and Home Medications Allergies Coded Allergies: No Known Drug Allergies (Unverified , 12/03/21) Patient Home Medication List Home Medication List Reviewed: Yes Acetaminophen (Tylenol Extra Strength) 500 Mg Tablet, 1,000 MG PO HS, (Reported) Entered as Reported by: BRICE WATERS on 12/04/21 1213 Last Action: Continued Albuterol Sulfate (Albuterol Sulfate) 2.5 Mg/3 Ml Vial.neb, 3 ML NEB Q4H PRN for SHORTNESS OF BREATH, (Reported) Entered as Reported by: BRICE WATERS on 12/04/21 1213 Last Action: Continued Amiodarone HCl (Amiodarone HCl) 200 Mg Tablet, 200 MG PO DAILY, (Reported) Entered as Reported by: BRICE WATERS on 12/04/211212 Last Action: Continued Apixaban (Eliquis) 5 Mg Tablet, 5 MG PO BID, (Reported) Entered as Reported by: BRICE WATERS on 12/04/211212 Last Action: Held Ferrous Sulfate (Ferrous Sulfate) 325 Mg Tablet, 325 MG PO BID, (Reported) Entered as Reported by: BRICE WATERS on 12/04/211213 Last Action: Held Furosemide (Furosemide) 40 Mg Tablet, 40 MG PO DAILY, (Reported) Entered as Reported by: BRICE WATERS on 12/04/211212 Last Action: Held Gabapentin (Neurontin) 300 Mg Capsule, 300 MG PO BID, (Reported) Entered as Reported by: BRICE WATERS on 12/04/211212 Last Action: Continued Metformin HCl (Metformin HCl) 1,000 Mg Tablet, 1,000 MG PO BID, (Reported) Entered as Reported by: BRICE WATERS on 12/04/211212 Last Action: Held Potassium Chloride (Potassium Chloride) 20 Meq Tab.er.prt, 20 MEQ PO 1200, (Reported) Entered as Reported by: BRICE WATERS on 12/04/211212 Last Action: Held Discontinued Medications Albuterol Sulfate (Proventil Hfa) 6.7 Gm Hfa.aer.ad, 6.7 GM INH Q4H Discontinued Reason: No Longer Taking Prescribed by: YONI SCHWARZ on 10/22/211450 Last Action: Discontinued Azithromycin (Zithromax) 250 Mg Tablet, 250 MG PO UD Discontinued Reason: No Longer Taking Prescribed by: YNOI SCHWARZ on 10/22/211450 Last Action: Discontinued Benzonatate (Tessalon Perles) 100 Mg Capsule, 100 MG PO TID Discontinued Reason: No Longer Taking Prescribed by: YONI SCHWARZ on 10/22/211450 Last Action: Discontinued Prednisone (Prednisone) 20 Mg Tab, 40 MG PO DAILY Discontinued Reason: No Longer Taking Prescribed by: YONI SCHWARZ on 10/22/211450 Last Action: Discontinued Past Opawacw-Asfvdj-Meggge Hx Reviewed Nursing Assessment Reviewed/Agree w Nursing PMH: Yes Family Medical History Significant Family History: No Pertinent Family Hx Review of Systems-General Constitutional: No chills, No fever; malaise, weakness EENTM: No ear pain, No blurred vision Respiratory: cough, phlegm, short of breath Cardiovascular: No chest pain, No palpitations Gastrointestinal: No abdominal pain; diarrhea, melena, other (Chronic pannus wound left lower quadrant) Genitourinary: No decreased output, No pain Musculoskeletal: joint pain, muscle cramps (legs) Skin: dryness, other (pannus wound) Psychiatric/Neurological: Anxiety; Denies Depressed All Other Systems Reviewed Negative Unless Noted: Yes (Negative excepted noted.) Physical Exam-General Problems Physical Exam General Appearance: no apparent distress, obese HEENT: PERRL/EOMI, normal ENT inspection Neck: non-tender, supple Respiratory: chest non-tender, no respiratory distress, no accessory muscle use, wheezing Cardiovascular: regular rate, rhythm, tachycardia Gastrointestinal: No guarding; tenderness (RUQ RLQ, chronic skin changes on the right side of the abdomen with a chronic appearing wound) Rectal: deferred Back: normal inspection, no CVA tenderness Extremities: normal inspection, no pedal edema Neurologic/Psychiatric: alert, normal mood/affect Skin: normal color, warm/dry (Skin changes as noted above chronic wound right sided pannus) Lymphatic: no adenopathy Assessment/Plan Assessment/Plan Assessment/Plan Anemia Melena Shortness of breath Chronic pannus abdominal wound COPD exacerbation Chronic atrial fibrillation Patient n.p.o. at this time. Plan for EGD today. Transfuse packed red blood cells as needed. Follow hemoglobin. If no source of GI bleed found on EGD will need to colonoscopy. Question if patient may tolerate prep or not. Supervisory-Addendum Brief Verification & Attestation Participated in pt care: history, MDM, physical Personally performed: exam, history, MDM, supervision of care Care discussed with: Medical Student Procedures: n/a Results interpretation: Verified all documentation Verification and Attestation of Medical Student E/M Service A medical student performed and documented this service in my presence. I reviewed and verified all information documented by the medical student and made modifications to such information, when appropriate. I personally performed the physical exam and medical decision making. Leticia Garza, Dec 04, 2021,20:30 MYRNA SALMON Dec 04, 2021 10:23 LETICIA GARZA DO Dec 04, 2021 20:26
--- NOTE | 2021-12-04 10:32 | Consultation-Cardiology ---
HPI-Cardiology Cardiology Consultation: Date of Consultation 12/04/21 Time Seen by a Provider: 10:00 Date of Admission Attending Physician Jia Bowen DO Admitting Physician Génesis Farris MD Consulting Physician WILMER DUNHAM MD, MA, FACP, FACC, FSCAI, CCDS Physician requesting consult: Dr Bowen HPI: Chief Complaint: CC: Progressive dyspnea HPI Ms. Pedro is a 71 yr old female admitted to [facility] from the ED with increasing SOB. She was found to be anemic (Hgb less than 7.0). She has recently moved to the [facility] from [place]. She does not report any CP, palpitations. She reports she is w/c bound. She reports she has a wound to her abd. She is lethargic this morning and has to be awakened frequently during the exam. She states she has a-fib chronically for which she was on OAC, but does recall the name of the OAC she is taking. No c/o LE swelling. No c/o cough. Review of Systems-Cardiology Review of Systems Constitutional: No chills, No fever; malaise Eyes: No vision change Ears/Nose/Throat: No epistaxis, No recent hearing loss Respiratory: As described under HPI Cardiovascular: As described under HPI Gastrointestinal: No diarrhea, No nausea, No vomiting Genitourinary: No dysuria Musculoskeletal: joint pain, muscle pain Skin: As described under HPI Psychiatric/Neurological: anxiety, depression; No seizure, No focal weakness, No syncope Hematologic: anemia All Other Systems Reviewed Negative Unless Noted: Yes TCM-Zwjhda-Knaelf Hx Patient Social History Smoking Status: Former Smoker Have you traveled recently?: No Alcohol Use?: No Pt feels they are or have been: No Past Medical History PMH As described under Assessment. Family Medical History Family Medical History: No known family h/o CAD reported Allergies and Home Medications Allergies Coded Allergies: No Known Drug Allergies (Unverified , 12/03/21) Patient Home Medication List Home Medication List Reviewed: Yes Albuterol Sulfate (Proventil Hfa) 6.7 Gm Hfa.aer.ad, 6.7 GM INH Q4H Prescribed by: YONI SCHWARZ on 10/22/21 1451 Azithromycin (Zithromax) 250 Mg Tablet, 250 MG PO UD Prescribed by: YONI SCHWARZ on 10/22/21 1451 Benzonatate (Tessalon Perles) 100 Mg Capsule, 100 MG PO TID Prescribed by: YONI SCHWARZ on 10/22/21 1451 Prednisone (Prednisone) 20 Mg Tab, 40 MG PO DAILY Prescribed by: YONI SCHWARZ on 10/22/21 1451 Physical Exam-Cardiology Physical Exam Vital Signs/I&O 12/03/21 12/03/21 12/04/21 12/04/21 23:00 23:12 00:04 01:24 Temp 35.8 36.8 35.6 Pulse 118 112 106 Resp 24 B/P (MAP) 117/63 (81) 110/63 Pulse Ox 95 91 100 100 O2 Delivery Nasal Cannula Nasal Cannula Nasal Cannula O2 Flow Rate 5.00 5.00 5.00 FiO2 40 12/04/21 12/04/21 12/04/21 12/04/21 01:49 04:33 04:34 09:04 Temp 36.0 35.4 35.4 35.9 Pulse 100 103 107 96 Resp 20 B/P (MAP) 107/79 134/67 134/67 (89) 115/72 (86) Pulse Ox 95 92 93 92 O2 Delivery Nasal Cannula Nasal Cannula Nasal Cannula Nasal Cannula O2 Flow Rate 5.00 4.00 4.00 4.00 Capillary Refill : Constitutional: AAO x 3, other (morbidly obese) HEENT: hearing is well preserved; No oral hygience is good (dental carries) Neck: No carotid bruit; carotid pulses are 2 + bilaterally Respiratory: No accessory muscle use, No respiratory distress; chest expansion is symmetric, chest is bilaterally symmetric, other (good air entry) Cardiovascular: irregularly irregular; No JVD; S1 and S2, systolic murmur Gastrointestinal: No tender; soft; No guarding; audible bowel sounds Extremities: no lower extremity edema bilateral Neurologic/Psychiatric: grossly intact (moves all extremities) Skin: other (wound to abdomen with dressing in place; dressing D&I - not removed) Data Review Labs Laboratory Tests 12/03/21 19:25: White Blood Count 11.3H, Red Blood Count 2.68L, Hemoglobin 6.0*L, Hematocrit 22L , Mean Corpuscular Volume 84, Mean Corpuscular Hemoglobin 22L, Mean Corpuscular Hemoglobin Concent 27L, Red Cell Distribution Width 21.6H, Platelet Count 293, Mean Platelet Volume 11.0, Immature Granulocyte % (Auto) 1, Neutrophils (%) (Auto) 88H, Lymphocytes (%) (Auto) 6L, Monocytes (%) (Auto) 5, Eosinophils (%) (Auto) 0, Basophils (%) (Auto) 0, Neutrophils # (Auto) 9.9H, Lymphocytes # (Auto) 0.7L, Monocytes # (Auto) 0.5, Eosinophils # (Auto) 0.1, Basophils # (Auto) 0.0, Immature Granulocyte # (Auto) 0.1, Neutrophils % (Manual) 85, Lymphocytes % (Manual) 5, Monocytes % (Manual) 5, Metamyelocytes % 1, Band Neutrophils 4, Nucleated Red Blood Cells 1, Platelet Estimate NORMAL, Polychromasia MODERATE, Hypochromasia MARKED, Poikilocytosis MODERATE, Anisocytosis MODERATE, Target Cells SLIGHT, Tear Drop Cells SLIGHT, Elliptocytes SLIGHT, Blood Morphology Comment ABNORMAL, Sodium Level 134L, Potassium Level 4.6, Chloride Level 88L, Carbon Dioxide Level 35H, Anion Gap 11, Blood Urea Nitrogen 28H, Creatinine 0.84, Estimat Glomerular Filtration Rate 75, BUN/Creatinine Ratio 33, Glucose Level 229H, Calcium Level 8.8, Corrected Calcium 9.6, Total Bilirubin 0.4, Aspartate Amino Transf (AST/SGOT) 12, Alanine Aminotransferase (ALT/SGPT) 8, Alkaline Phosphatase 83, Troponin I < 0.30, Pro-B-Type Natriuretic Peptide 6543.0H, Total Protein 7.5, Albumin 3.0L 12/03/21 23:13: White Blood Count 11.2H, Red Blood Count 2.55L, Hemoglobin 5.7*L, Hematocrit 22L , Mean Corpuscular Volume 85, Mean Corpuscular Hemoglobin 22L, Mean Corpuscular Hemoglobin Concent 26L, Red Cell Distribution Width 21.2H, Platelet Count 279, Mean Platelet Volume 10.4, Immature Granulocyte % (Auto) 1, Neutrophils (%) (Auto) 87H, Lymphocytes (%) (Auto) 6L, Monocytes (%) (Auto) 5, Eosinophils (%) (Auto) 0, Basophils (%) (Auto) 0, Neutrophils # (Auto) 9.8H, Lymphocytes # (Auto) 0.7L, Monocytes # (Auto) 0.5, Eosinophils # (Auto) 0.0, Basophils # (Auto) 0.0, Immature Granulocyte # (Auto) 0.1 12/03/21 23:33: Influenza Type A Antigen NEGATIVE, Influenza Type B Antigen NEGATIVE, SARS-CoV-2 RNA (RT-PCR) Not Detected 12/04/21 06:03: White Blood Count 10.2, Red Blood Count 2.72L, Hemoglobin 6.2*L, Hematocrit 23L, Mean Corpuscular Volume 85, Mean Corpuscular Hemoglobin 23L, Mean Corpuscular Hemoglobin Concent 27L, Red Cell Distribution Width 20.6H, Platelet Count 279, Mean Platelet Volume 10.7, Immature Granulocyte % (Auto) 2, Neutrophils (%) (Auto) 82H, Lymphocytes (%) (Auto) 9L, Monocytes (%) (Auto) 7, Eosinophils (%) (Auto) 0, Basophils (%) (Auto) 0, Neutrophils # (Auto) 8.4H, Lymphocytes # (Auto) 0.9L, Monocytes # (Auto) 0.7, Eosinophils # (Auto) 0.0, Basophils # (Auto) 0.0, Immature Granulocyte # (Auto) 0.2H, Sodium Level 132L, Potassium Level 4.9, Chloride Level 87L, Carbon Dioxide Level 35H, Anion Gap 10, Blood Urea Nitrogen 32H, Creatinine 0.98, Estimat Glomerular Filtration Rate 62, BUN/Creatinine Ratio 33, Glucose Level 190H, Calcium Level 8.5, Corrected Calcium 9.3, Total Bilirubin 0.6, Aspartate Amino Transf (AST/SGOT) 14, Alanine Aminotransferase (ALT/SGPT) 11, Alkaline Phosphatase 65, Total Protein 6.8, Albumin 3.0L 12/04/21 06:14: B-Type Natriuretic Peptide 672.6H 12/04/21 06:18: Urine Color YELLOW, Urine Clarity CLEAR, Urine pH 5.5, Urine Specific [place] 1.025H, Urine Protein TRACEH, Urine Glucose (UA) NEGATIVE, Urine Ketones NEGATIVE, Urine Nitrite NEGATIVE, Urine Bilirubin NEGATIVE, Urine Urobilinogen 0.2, Urine Leukocyte Esterase 2+H, Urine RBC (Auto) 2+H, Urine RBC 0-2, Urine WBC 50-100H, Urine Squamous Epithelial Cells 0-2, Urine Crystals NONE, Urine B acteria MODERATEH, Urine Casts NONE, Urine Mucus NEGATIVE, Urine Culture Indicated YES Laboratory Tests 12/03/21 19:25 2/1/22 23:13 12/04/21 06:03 A/P-Cardiology Assessment/Admission Diagnosis Progressive dyspnea Anemia of undetermined etiology - management by Dr Bowen HTN DM 2 COPD H/O Iron deficiency anemia Discussion and Recomendations * We recommend eval for any source of bleeding and full treatment of it CAS (Med Svce / Dr Bowen managing). Once a source of bleeding has been excluded or fully treated, we recommend resumption of oral anticoag (without which she is at high risk of thromboembolic stroke) * Monitor labs Clinical Quality Measures DVT/VTE Risk/Contraindication: Contraindications-Pharm: Other *list below* Other: severe anemia WILMER DUNHAM MD FACP FAC CCDS Dec 04, 2021 10:32
--- NOTE | 2021-12-04 11:00 | Physical Therapy Progress Note ---
Therapy Progress Note Pt refused OT and PT today. We will attempt again tomorrow. YONI CHAVEZ PT Dec 04, 2021 11:00
--- NOTE | 2021-12-04 11:42 | Occ Therapy Progress Note ---
Therapy Progress Note OT order received, chart reviewed. Attempted treatment. Pt. can't stay awake, but begins to become upset and cries when prompted to participate. Adamantly refuses all attempts at treatment. Let nursing know. Nursing verbalizes that pt. bed bound in report. [id number] 1, visit x 9minutes Pt. refused SEBASTIAN PRYOR OT Dec 04, 2021 11:42
[2021-12-04] MEDS ORDERED: ACET-2267 PO (12:13)
[2021-12-04] MEDS ORDERED: POTA-179 PO (12:13)
[2021-12-04] MEDS ORDERED: APIX5TAB PO (12:13)
[2021-12-04] MEDS ORDERED: GABA300C PO (12:13)
[2021-12-04] MEDS ORDERED: METF-399 PO (12:13)
[2021-12-04] MEDS ORDERED: AMIO200T65 PO (12:13)
[2021-12-04] MEDS ORDERED: FURO40TA4 PO (12:13)
[2021-12-04] MEDS ORDERED: ALBU2.5V4 NEB (12:13)
[2021-12-04] MEDS ORDERED: FERR-74 PO (12:14)
[2021-12-04] MEDS ORDERED: RT-ALBUTEROL SULF 2.5 MG/3 ML PRE-MIX VIAL IH PRN (13:15)
[2021-12-04] MEDS ORDERED: KETAMINE 50 MG/5 ML SYRINGE ONE (14:34)
[2021-12-04] MEDS ORDERED: PROPOFOL INJECTION 50 ML IV ONE (14:34)
[2021-12-04] MEDS ORDERED: LACTATED RINGERS 1,000 ML IV STA (15:09)
[2021-12-04] MEDS ORDERED: HURRICAINE EXT TUBE (BENZOCAINE) XX PRN (15:15)
--- NOTE | 2021-12-04 18:17 | Progress Note-Post Operative ---
Post-Operative Progess Note Surgeon (s)/Systems Software Manager (s) Surgeon LETICIA GARZA DO Systems Software Manager: na Pre-Operative Diagnosis anemia, melena Post-Operative Diagnosis hiatal hernia, gastritis Procedure & Operative Findings Date of Procedure 12/04/21 Procedure Performed/Findings EGD Anesthesia Type per validation scientist Estimated Blood Loss Estimated blood loss (mL): none Specimens/Packing Specimens Removed na LETICIA GARZA DO Dec 04, 2021 18:17
[2021-12-04] MEDS: GABAPENTIN 300 MG (NEURONTIN) CAP PO SCH (20:33)
[2021-12-04] MEDS: ACETAMINOPHEN 500 MG TAB (TYLENOL) PO SCH (20:34)
[2021-12-05 04:21] VITALS: BP 125/77
--- NOTE | 2021-12-05 06:16 | Progress Note - Surgery ---
MYRNA SALMON 12/05/21 0616: Subjective Date Seen by a Provider: Dec 05, 2021 Time Seen by a Provider: 06:00 Subjective/Events-last exam Pt's EGD yesterday revealed a hiatal hernia and gastritis, but no upper GI bleed. Repeat CXR showed cardiomegaly with central vascular congestion, but no definitive consolidation or pleural fluid. Pt was more awake and responsive to questioning this morning. She stated that she felt "alright." She hadn't had a bowel movement today, but has had flatus. Pt is still NPO. Pt coughed up white phlegm during exam and complained she felt like she "couldn't get enough air." O2 was at 97 on 4L. Pt received 2 PRBC transfusions on 12/04/21. Pt had Abd/Pelvis CT this afternoon, revealing ventral wall abdominal hernias, as well as a fistula emptying at her L pannus wound. Review of Systems General: No Chills; Fatigue HEENT: Head Aches; No Ear Pain Pulmonary: Dyspnea, Cough Cardiovascular: No: Chest Pain, Palpitations Gastrointestinal: No: Nausea, Vomiting Genitourinary: No Dysuria; Frequency (increased from fluids) Musculoskeletal: neck pain (neck felt sore), arm pain Neurological: No: Weakness, Change in speech Focused Exam Respiratory: Crackles, Wheezing Cardiovascular: Systolic Murmur, Tachycardia Skin: normal color, other (L pannus wound) Objective Exam Vital Signs Date Time Temp Pulse Resp B/P (MAP) Pulse Ox O2 Delivery O2 Flow Rate FiO2 12/05/21 04:21 36.4 100 21 125/77 (93) 97 Nasal Cannula 4.00 12/04/21 23:41 36.0 96 19 120/62 (81) 92 Nasal Cannula 4.00 12/04/21 20:30 Nasal Cannula 4.00 12/04/21 20:00 36.5 96 20 125/60 (81) 95 Nasal Cannula 4.00 12/04/21 19:18 95 Nasal Cannula 4.00 12/04/21 15:50 36.2 97 20 131/83 (99) 91 Nasal Cannula 4.00 12/04/21 15:20 102 16 93 Nasal Cannula 4 12/04/21 15:15 101 16 93 OxyMask 10 12/04/21 15:10 94 16 100 OxyMask 10 12/04/21 14:28 36.1 95 20 130/62 97 Nasal Cannula 4.00 12/04/21 12:16 95 Nasal Cannula 4.00 12/04/21 11:42 35.6 99 129/85 95 Nasal Cannula 4.00 12/04/21 11:34 35.5 116/59 (78) 90 Nasal Cannula 4.00 12/04/21 11:25 35.5 96 20 116/59 90 Nasal Cannula 4.00 12/04/21 09:04 35.9 96 20 115/72 (86) 92 Nasal Cannula 4.00 12/04/21 09:00 Nasal Cannula 4.00 I & O 12/05/21 07:00 Intake Total 1890 ml Output Total 1025 ml Balance 865 ml Capillary Refill : General Appearance: No Apparent Distress, Obese HEENT: PERRL/EOMI, Normal ENT Inspection Neck: Full Range of Motion, Normal Inspection (said it was sore) Respiratory: Crackles, Wheezing Cardiovascular: Systolic Murmur, Tachycardia Peripheral Pulses: 3+ Radial Pulses (R), 3+ Radial Pulses (L) Gastrointestinal: normal bowel sounds, non tender, soft Extremity: Normal Inspection, No Pedal Edema Neurologic/Psychiatric: Alert, Normal Mood/Affect Skin: Normal Color, Warm/Dry Results Lab Laboratory Tests 12/04/21 06:14: B-Type Natriuretic Peptide 672.6H 12/04/21 06:18: Urine Color YELLOW, Urine Clarity CLEAR, Urine pH 5.5, Urine Specific [place] 1.025H, Urine Protein TRACEH, Urine Glucose (UA) NEGATIVE, Urine Ketones NEGATIVE, Urine Nitrite NEGATIVE, Urine Bilirubin NEGATIVE, Urine Urobilinogen 0.2, Urine Leukocyte Esterase 2+H, Urine RBC (Auto) 2+H, Urine RBC 0-2, Urine WBC 50-100H, Urine Squamous Epithelial Cells 0-2, Urine Crystals NONE, Urine Bacteria MODERATEH, Urine Casts NONE, Urine Mucus NEGATIVE, Urine Culture Indicated YES 12/04/21 11:35: Glucometer 140H Assessment/Plan Assessment/Plan Assessment/Plan Anemia of undetermined etiology Melena Progressive Dypsnea Chronic pannus abdominal wound Fistula Ventral wall abdominal hernias COPD Chronic atrial fibrillation Colonoscopy Scheduled for a.m., pt is bowel prepping Transfuse PRBCs as needed Cardiology has been consulted Monitor Hgb Clinical Quality Measures DVT/VTE Risk/Contraindication: Contraindications-Pharm: Other *list below* Other: severe anemia LETICIA HADDAD DO 12/05/21 1628: Subjective Subjective/Events-last exam Patient on clears. Hgb stable. patient has started prep. Increased ouput of wound on abdomen. Family present and says has chronic fistula. Shortness of breath at times. No other complaints except wanting food. Denies fever sweats chills or chest pain at this time. Objective Exam General Appearance: No Apparent Distress, Obese HEENT: PERRL/EOMI, Normal ENT Inspection Neck: Full Range of Motion, Normal Inspection (said it was sore) Respiratory: Crackles, Wheezing Cardiovascular: No JVD, Tachycardia Gastrointestinal: non tender, soft, other (chronic skin changes and excoriation with succus appearing output.) Extremity: Normal Inspection, Non Tender Neurologic/Psychiatric: Alert, Normal Mood/Affect Skin: Normal Color, Warm/Dry, Other (chronic skin changes abdomen) Assessment/Plan Assessment/Plan Assessment/Plan Anemia of undetermined etiology Melena Progressive Dypsnea Chronic pannus abdominal wound Fistula Ventral wall abdominal hernias COPD Chronic atrial fibrillation Colonoscopy Scheduled for a.m., pt is bowel prepping Transfuse PRBCs as needed Cardiology has been consulted Monitor Hgb Chronic fistula, patient too high risk currently and she does not want anything done with it. Supervisory-Addendum Brief Verification & Attestation Participated in pt care: history, MDM, physical Personally performed: exam, history, MDM, supervision of care Care discussed with: Medical Student Procedures: n/a Results interpretation: Verified all documentation Verification and Attestation of Medical Student E/M Service A medical student performed and documented this service in my presence. I reviewed and verified all information documented by the medical student and made modifications to such information, when appropriate. I personally performed the physical exam and medical decision making. Leticia Haddad, Dec 05, 2021,16:28 MYRNA SALMON Dec 05, 2021 06:16 LETICIA HADDAD DO Dec 05, 2021 16:28
[2021-12-05 07:53] VITALS: BP 91/51
[2021-12-05] MEDS ORDERED: GOLYTELY POWDER 4000 ML BTL PO ONE (09:00)
--- NOTE | 2021-12-05 09:00 | Physical Therapy Progress Note ---
Therapy Progress Note Patient refused therapy services. Patient reports that she does not ambulate at home and is in her w/c all day long. Her family helps to transfer her using a [place] lift at home. Patient reports that she does not stand ever and has not for years. She also reports she toilets in her bed at home. Therapy will be attempted again tomorrow. 1 ref CY HALL PT Dec 05, 2021 09:00
[2021-12-05 09:20] LABS: BASOPHILS % (AUTO) 0 % (0-10); EOSINOPHILS # (AUTO) 0.1 10^3/uL (0.0-0.3); EOSINOPHILS % (AUTO) 1 % (0-10); HEMATOCRIT 24 % (35-52); LYMPHOCYTES # (AUTO) 0.8 10^3/uL (1.0-4.0); LYMPHOCYTES % (AUTO) 8 % (12-44); MEAN CORPUSCULAR HEMOGLOBIN 24 pg (25-34); MEAN CORPUSCULAR HGB CONC 28 g/dL (32-36); MEAN CORPUSCULAR VOLUME 85 fL (80-99); MEAN PLATELET VOLUME 10.1 fL (9.0-12.2); MONOCYTES # (AUTO) 0.9 10^3/uL (0.0-1.0); MONOCYTES % (AUTO) 9 % (0-12); NEUTROPHILS # (AUTO) 8.5 10^3/uL (1.8-7.8); NEUTROPHILS % (AUTO) 81 % (42-75); PLATELET COUNT 258 10^3/uL (130-400); WHITE BLOOD COUNT 10.6 10^3/uL (4.3-11.0)
[2021-12-05 09:28] LABS: HEMOGLOBIN 6.8 g/dL (11.5-16.0)
[2021-12-05 09:29] LABS: POTASSIUM 4.5 MMOL/L (3.6-5.0)
[2021-12-05 09:31] LABS: CALCIUM 8.5 MG/DL (8.5-10.1)
[2021-12-05 09:32] VITALS: BP 124/77
[2021-12-05 09:32] LABS: TOTAL PROTEIN 6.6 GM/DL (6.4-8.2)
[2021-12-05 09:34] LABS: BILIRUBIN,TOTAL 0.6 MG/DL (0.1-1.0)
[2021-12-05 09:36] LABS: CREATININE SERUM 0.92 MG/DL (0.60-1.30)
[2021-12-05] MEDS: PANTOPRAZOLE 40 MG (PROTONIX) VIAL IV SCH (09:46)
[2021-12-05] MEDS: ALPRAZolam 0.25 MG (XANAX) TAB PO PRN (09:47)
[2021-12-05] MEDS: GABAPENTIN 300 MG (NEURONTIN) CAP PO SCH ×2 (09:47→20:57)
[2021-12-05] MEDS: HYDROcodone/APAP 5 MG/325 MG (LORTAB) TAB PO PRN (09:47)
[2021-12-05] MEDS: AMIODARONE 200 MG (CORDARONE) TAB PO SCH (09:47)
[2021-12-05] MEDS: DOCUSATE SODIUM 100 MG (COLACE) CAP PO SCH ×2 (09:47→20:58)
--- NOTE | 2021-12-05 10:21 | Anesthesia-General Post-Op ---
MAC Patient Condition Mental Status/LOC: Same as Preop Cardiovascular: Satisfactory Nausea/Vomiting: Absent Respiratory: Satisfactory Pain: Controlled Complications: Absent Post Op Complications Complications None Follow Up Care/Instructions Patient Instructions None needed. Anesthesiology Discharge Order Discharge Order Patient is doing well, no complaints, stable vital signs, no apparent adverse anesthesia problems. No complications reported per nursing. LOC ARENAS CRNA Dec 05, 2021 10:21
[2021-12-05] MEDS: RT-ALBUTEROL HFA 8.5 GM INHALER IH SCH ×3 (10:23→18:39)
[2021-12-05] MEDS ORDERED: DIATRIZOATE MEGLUM/SODIUM 37% 120 ML (GASTROGRAFIN) PO ONE (10:30)
--- NOTE | 2021-12-05 11:05 | Progress Note - Cardiology ---
Cardiology SOAP Progress Note Subjective: Reports gen malaise and weakness Reports diarrhea Denies cp or palp or syncope or shortness of breath at rest Objective: I&O/Vital Signs 12/04/21 12/05/21 12/05/21 12/05/21 23:41 04:21 07:53 09:32 Temp 36.0 36.4 35.2 Pulse 96 100 103 Resp 22 B/P (MAP) 120/62 (81) 125/77 (93) 91/51 (64) 124/77 (93) Pulse Ox 92 97 97 O2 Delivery Nasal Cannula Nasal Cannula Nasal Cannula O2 Flow Rate 4.00 4.00 4.00 12/05/21 00:00 Intake Total 1620 ml Output Total 875 ml Balance 745 ml Constitutional: AAO x 3, other (morbidly obese) Respiratory: No accessory muscle use, No respiratory distress; chest expansion is symmetric, chest is bilaterally symmetric, other (good air entry) Cardiovascular: irregularly irregular; No JVD; S1 and S2, systolic murmur Gastrointestional: No tender; soft; No guarding; audible bowel sounds Extremities: no lower extremity edema bilateral Neurologic/Psychiatric: grossly intact (moves all extremities) Skin: normal color, other (L pannus wound) Results/Procedures: Labs Laboratory Tests 12/04/21 11:35: Glucometer 140H 12/05/21 09:10: White Blood Count 10.6, Red Blood Count 2.85L, Hemoglobin 6.8*L, Hematocrit 24L, Mean Corpuscular Volume 85, Mean Corpuscular Hemoglobin 24L, Mean Corpuscular Hemoglobin Concent 28L, Red Cell Distribution Width 19.5H, Platelet Count 258, Mean Platelet Volume 10.1, Immature Granulocyte % (Auto) 2, Neutrophils (%) (Auto) 81H, Lymphocytes (%) (Auto) 8L, Monocytes (%) (Auto) 9, Eosinophils (%) (Auto) 1, Basophils (%) (Auto) 0, Neutrophils # (Auto) 8.5H, Lymphocytes # (Auto) 0.8L, Monocytes # (Auto) 0.9, Eosinophils # (Auto) 0.1, Basophils # (Auto) 0.0, Immature Granulocyte # (Auto) 0.2H, Sodium Level 133L, Potassium Level 4.5, Chloride Level 88L, Carbon Dioxide Level 36H, Anion Gap 9, Blood Urea Nitrogen 28H, Creatinine 0.92, Estimat Glomerular Filtration Rate 67, BUN/Creatinine Ratio 30, Glucose Level 154H, Calcium Level 8.5, Corrected Calcium 9.3, Total Bilirubin 0.6, Aspartate Amino Transf (AST/SGOT) 10, Alanine Aminotransferase (ALT/SGPT) 10, Alkaline Phosphatase 69, Total Protein 6.6, Albumin 3.0L Microbiology 12/03/21 MRSA Screen - Final, Complete MRSA not isolated Laboratory Tests 12/03/21 19:25 12/03/21 23:13 12/04/21 06:03 12/05/21 09:10 A/P: Assessment: Shortness of breath, currently stable Diarrhea - managed by Dr Bowen Anemia of undetermined etiology - managed by Dr Bowen Chronic a-fib (per pt report) - reports taking OAC, but does not know which HTN DM 2 COPD H/O Iron deficiency anemia Plan: * Once a source of bleeding has been excluded or fully treated, we recommend to her attending physician to resume oral anticoag. * Monitor labs WILMER DUNHAM MD FACP FACC CCDS Dec 05, 2021 11:05
[2021-12-05 12:05] VITALS: BP 122/61
--- NOTE | 2021-12-05 12:29 | Diagnostic Imaging Report ---
PROCEDURE: CT abdomen and pelvis without contrast. TECHNIQUE: Multiple contiguous axial images were obtained through the abdomen and pelvis without the use of intravenous contrast. Auto Exposure Controls were utilized during the CT exam to meet ALARA standards for radiation dose reduction. INDICATION: Chronic left lower abdominal nonhealing wound and pain. FINDINGS: There are 2 separate ventral abdominal wall hernias. Midline supraumbilical hernia is comprised of much of the mid stomach as well as omental fat. That hernial orifice has a diameter of about 11 cm transverse. More inferiorly, at and below the level of the umbilicus is a left paramedian ventral abdominal wall hernia comprised of unobstructed small and large bowel as well as mesenteric and omental fat. This is a broad-based abdominal wall defect with its hernial orifice of about 10 cm as measured in the coronal reconstructions cephalocaudal. There was no inflammatory change within this hernia sac. At the midline at and below the level of the umbilicus there is cutaneous thickening and subcutaneous edema as well as some fluid tracking deep to the skin. That collection measuring 3.4 mm in diameter. There is an adjacent small bowel loop extending just deep to the umbilicus. It is unclear if this is an enterocutaneous fistula. Given a persistent nonhealing wound and the features of regional cellulitis and probable small subcutaneous abscess, would suggest further workup with fistulogram. Allowing for the contrast media within the bowel to clear, cannulation of a soft tissue defect contrast injection and repeat CT scanning to see if we opacify a bowel loop adjacent to this defect suggested. Again, enteric contrast must clear before that would be of any use. The gallbladder is surgically absent. The spleen unremarkable. There is no bile duct dilatation. The kidneys are unobstructed. The adrenals are negative. The pancreas nonacute. There are postsurgical changes of the upper abdomen. There is an enlarged heterogeneous calcified fibroid uterus. No adnexal lesion. There is no free air. There is no small or large bowel obstruction. The aorta is nonaneurysmal. There is bibasilar partial atelectasis and a small hiatal hernia with postsurgical changes across the EG junction. IMPRESSION: 1. Ventral abdominal wall hernias, nonobstructing. Periumbilical subcutaneous edema, vascular congestion, skin thickening and features of regional cellulitis with suspicion for a small 3 cm subcutaneous abscess. Irregular appearing opacified unobstructed bowel loops are matted deep to the abdominal wall at that level, raising the question of enterocutaneous or colocutaneous fistula. Clearance of the contrast from the bowel with repeat CT scanning following fistulogram with injection of the draining skin defect recommended. 2. No bowel, biliary or urinary tract obstruction. Postsurgical changes in a fibroid uterus noted. Dictated by: Dictated on workstation # [id number]
--- NOTE | 2021-12-05 12:46 | Occ Therapy Progress Note ---
Therapy Progress Note OT attempted therapy. Pt. on phone, nods "no" when OT attempts to walk in room. PT attempted earlier and pt. adamant no therapy today. Will attempt again tomorrow. 1025 1, visit SEBASTIAN PRYOR OT Dec 05, 2021 12:46
--- NOTE | 2021-12-05 14:30 | Progress Note ---
Subjective Date Seen by a Provider: Dec 05, 2021 Time Seen by a Provider: 11:45 Subjective/Events-last exam Patient about the same Hemoglobin 6.8 Scopes to be done tomorrow Fistula noted and reviewed CT scan Dr. Haddad ordered Becomes tearful when I talked her about fpc placement and DNR Patient appears to be very end stage Review of Systems General: Fatigue, Malaise Pulmonary: Dyspnea Objective Exam Last Set of Vital Signs Vital Signs Date Time Temp Pulse Resp B/P (MAP) Pulse Ox O2 Delivery O2 Flow Rate FiO2 12/05/21 12:05 36.6 102 16 122/61 (81) 90 Nasal Cannula 4.00 12/04/21 00:04 40 Capillary Refill : I&O Intake and Output 12/04/21 23:59 Intake Total 2170 ml Output Total 1075 ml Balance 1095 ml Intake Oral 1970 ml IV Total 200 ml Output Urine Total 1075 ml # Bowel Movements 1 General: Alert, Oriented X3, Cooperative, No Acute Distress Lungs: Clear to Auscultation, Normal Air Movement Heart: Regular Rate, Normal S1, Normal S2, No Murmurs Psych/Mental Status: Mental Status NL, Mood NL Results Lab Laboratory Tests 12/05/21 09:10: White Blood Count 10.6, Red Blood Count 2.85L, Hemoglobin 6.8*L, Hematocrit 24L, Mean Corpuscular Volume 85, Mean Corpuscular Hemoglobin 24L, Mean Corpuscular Hemoglobin Concent 28L, Red Cell Distribution Width 19.5H, Platelet Count 258, Mean Platelet Volume 10.1, Immature Granulocyte % (Auto) 2, Neutrophils (%) (Auto) 81H, Lymphocytes (%) (Auto) 8L, Monocytes (%) (Auto) 9, Eosinophils (%) (Auto) 1, Basophils (%) (Auto) 0, Neutrophils # (Auto) 8.5H, Lymphocytes # (Auto) 0.8L, Monocytes # (Auto) 0.9, Eosinophils # (Auto) 0.1, Basophils # (Auto) 0.0, Immature Granulocyte # (Auto) 0.2H, Sodium Level 133L, Potassium Level 4.5, Chloride Level 88L, Carbon Dioxide Level 36H, Anion Gap 9, Blood Urea Nitrogen 28H, Creatinine 0.92, Estimat Glomerular Filtration Rate 67, BUN/Creatinine Ratio 30, Glucose Level 154H, Calcium Level 8.5, Corrected Calcium 9.3, Total Bilirubin 0.6, Aspartate Amino Transf (AST/SGOT) 10, Alanine Aminotransferase (ALT/SGPT) 10, Alkaline Phosphatase 69, Total Protein 6.6, Albumin 3.0L Microbiology 12/04/21 Urine Culture - Preliminary, Resulted Mixed Bacterial Chelly Klebsiella pneumoniae Escherichia coli Testing In Progress 12/03/21 MRSA Screen - Final, Complete MRSA not isolated Assessment/Plan Assessment/Plan Assess & Plan/Chief Complaint Assessment: Severe symptomatic anemia GI bleed Transfusion required Hypertension Atrial fibrillation Anticoagulation maintained for CVA prophylaxis currently on hold Abdominal wound chronic due to fistula Depression with suicidal ideation reported by nurse Super morbid obesity BMI 47 Severe debility Neuropathy Plan: Transfuse Consult surgery Wound care Hold anticoagulation Bagley catheter maintained due to severe debility Needs fpc Consult cardiology 12/05/2021: Monitor hemoglobin Scopes tomorrow Needs DNR Needs fpc placement Clinical Quality Measures DVT/VTE Risk/Contraindication: Contraindications-Pharm: Other *list below* Other: severe anemia HARSHA CLARK DO Dec 05, 2021 14:30
[2021-12-05 16:00] VITALS: BP 124/65
[2021-12-05] MEDS: ACETAMINOPHEN 325 MG TABLET PO PRN (18:46)
[2021-12-05 20:00] VITALS: BP 131/72
[2021-12-05] MEDS: ACETAMINOPHEN 500 MG TAB (TYLENOL) PO SCH (20:57)
[2021-12-06] VITALS (8 sets, daily range): BP systolic 110–143; BP diastolic 55–77
[2021-12-06 05:41] LABS: BASOPHILS % (AUTO) 0 % (0-10); EOSINOPHILS % (AUTO) 0 % (0-10); HEMATOCRIT 26 % (35-52); LYMPHOCYTES % (AUTO) 9 % (12-44); MEAN CORPUSCULAR HEMOGLOBIN 23 pg (25-34); MEAN CORPUSCULAR HGB CONC 27 g/dL (32-36); MEAN CORPUSCULAR VOLUME 87 fL (80-99); MEAN PLATELET VOLUME 10.3 fL (9.0-12.2); MONOCYTES # (AUTO) 1.8 10^3/uL (0.0-1.0); MONOCYTES % (AUTO) 16 % (0-12); NEUTROPHILS # (AUTO) 8.1 10^3/uL (1.8-7.8); NEUTROPHILS % (AUTO) 71 % (42-75); PLATELET COUNT 260 10^3/uL (130-400); WHITE BLOOD COUNT 11.4 10^3/uL (4.3-11.0)
--- NOTE | 2021-12-06 05:55 | Progress Note - Surgery ---
MYRNA SALMON 12/06/21 0555: Subjective Date Seen by a Provider: Dec 06, 2021 Time Seen by a Provider: 05:35 Subjective/Events-last exam 71 yo F admitted for COPD exacerbation is experiencing chronic anemia and black tarry stools. Will undergo colonoscopy today. Pt bowel prepped yesterday afternoon and had been NPO prior. Pt states that she feels "alright" and denies being in pain, but is becomes teary about waiting for the scope and wants to eat. Pt less drowsy than previous encounters. Pt's chronic fistula had a new dressing. Pt still SOB and coughing, but denies fevers/chills/chest pain at this time. Review of Systems General: No Chills; Fatigue HEENT: Head Aches, Visual Changes (blurry vision) Pulmonary: Dyspnea, Cough Cardiovascular: No: Chest Pain, Palpitations Gastrointestinal: No: Nausea, Vomiting, Abdominal Pain Genitourinary: No Dysuria, No Incontinence Musculoskeletal: neck pain, arm pain Neurological: Weakness; No: Change in speech Focused Exam Respiratory: Crackles, Wheezing Cardiovascular: Regular Rate, Rhythm, Systolic Murmur Peripheral Pulses: 3+ Radial Pulses (R), 3+ Radial Pulses (L) Skin: warm/dry, other (chronic fistula L torso) Objective Exam Vital Signs Date Time Temp Pulse Resp B/P (MAP) Pulse Ox O2 Delivery O2 Flow Rate FiO2 12/06/21 04:30 36.0 95 18 143/64 (90) 94 Nasal Cannula 4.00 12/06/21 00:30 36.6 95 18 138/77 (97) 95 Nasal Cannula 4.00 12/05/21 21:27 36.4 12/05/21 20:00 36.4 112 20 131/72 (91) 95 Nasal Cannula 4.00 12/05/21 19:45 Nasal Cannula 4.00 12/05/21 19:12 94 Nasal Cannula 4.00 12/05/21 16:00 36.4 85 18 124/65 (84) 94 Nasal Cannula 4.00 12/05/21 12:05 36.6 102 16 122/61 (81) 90 Nasal Cannula 4.00 12/05/21 11:36 95 Nasal Cannula 4.00 12/05/21 09:32 124/77 (93) 12/05/21 09:00 Nasal Cannula 4.00 12/05/21 07:53 35.2 103 22 91/51 (64 97 Nasal Cannula 4.00 I & O 12/06/21 07:00 Intake Total 3158 ml Output Total 914 ml Balance 2244 ml Capillary Refill : General Appearance: No Apparent Distress, Obese HEENT: PERRL/EOMI, Normal ENT Inspection Neck: Full Range of Motion, Normal Inspection (said it was sore) Respiratory: Crackles, Wheezing Cardiovascular: Regular Rate, Rhythm, Systolic Murmur Peripheral Pulses: 3+ Radial Pulses (R), 3+ Radial Pulses (L) Gastrointestinal: non tender, soft, other (chronic skin changes and excoriation with succus appearing output.) Extremity: Normal Inspection, Pedal Edema Neurologic/Psychiatric: Alert, Depressed Affect Skin: Normal Color, Warm/Dry, Other (chronic skin changes abdomen) Lymphatic: No Adenopathy Results Lab Laboratory Tests 12/05/21 09:10: White Blood Count 10.6, Red Blood Count 2.85L, Hemoglobin 6.8*L, Hematocrit 24L, Mean Corpuscular Volume 85, Mean Corpuscular Hemoglobin 24L, Mean Corpuscular Hemoglobin Concent 28L, Red Cell Distribution Width 19.5H, Platelet Count 258, Mean Platelet Volume 10.1, Immature Granulocyte % (Auto) 2, Neutrophils (%) (Auto) 81H, Lymphocytes (%) (Auto) 8L, Monocytes (%) (Auto) 9, Eosinophils (%) (Auto) 1, Basophils (%) (Auto) 0, Neutrophils # (Auto) 8.5H, Lymphocytes # (Auto) 0.8L, Monocytes # (Auto) 0.9, Eosinophils # (Auto) 0.1, Basophils # (Auto) 0.0, Immature Granulocyte # (Auto) 0.2H, Sodium Level 133L, Potassium Level 4.5, Chloride Level 88L, Carbon Dioxide Level 36H, Anion Gap 9, Blood Urea Nitrogen 28H, Creatinine 0.92, Estimat Glomerular Filtration Rate 67, BUN/Creatinine Ratio 30, Glucose Level 154H, Calcium Level 8.5, Corrected Calcium 9.3, Total Bilirubin 0.6, Aspartate Amino Transf (AST/SGOT) 10, Alanine Aminotransferase (ALT/SGPT) 10, Alkaline Phosphatase 69, Total Protein 6.6, Albumin 3.0L 12/05/21 20:30: Glucometer 179H 12/06/21 05:28: White Blood Count 11.4H, Red Blood Count 3.00L, Hemoglobin 7.0L, Hematocrit 26L, Mean Corpuscular Volume 87, Mean Corpuscular Hemoglobin 23L, Mean Corpuscular Hemoglobin Concent 27L, Red Cell Distribution Width 19.5H, Platelet Count 260, Mean Platelet Volume 10.3, Immature Granulocyte % (Auto) 3, Neutrophils (%) (Auto) 71, Lymphocytes (%) (Auto) 9L, Monocytes (%) (Auto) 16H, Eosinophils (%) (Auto) 0, Basophils (%) (Auto) 0, Neutrophils # (Auto) 8.1H, Lymphocytes # (Auto) 1.0, Monocytes # (Auto) 1.8H, Eosinophils # (Auto) 0.0, Basophils # (Auto) 0.0, Immature Granulocyte # (Auto) 0.3H Microbiology 12/04/21 Urine Culture - Preliminary, Resulted Mixed Bacterial Chelly Klebsiella pneumoniae Escherichia coli Testing In Progress 12/03/21 MRSA Screen - Final, Complete MRSA not isolated Assessment/Plan Assessment/Plan Assessment/Plan Assessment: Anemia of undetermined etiology Melena Progressive Dypsnea Chronic L pannus wound secondary to fistula Ventral wall abdominal hernias COPD Chronic atrial fibrillation UTI Depression with suicidal ideation reported by nurse Colonoscopy Scheduled for a.m. Transfuse PRBCs as needed Cardiology has been consulted Monitor Hgb Chronic fistula, patient too high risk currently and she does not want anything done with it Pt has been spoken to by IM about moving to a [facility] and implementing DNR Clinical Quality Measures DVT/VTE Risk/Contraindication: Contraindications-Pharm: Other *list below* Other: severe anemia LETICIA HADDAD DO 12/06/21 1123: Subjective Subjective/Events-last exam patient unable to take entire prep. No abdominal pain. Still with shortness of breath. NPO currently. Denies n/v fever sweats chills or chest pain. Objective Exam General Appearance: No Apparent Distress, Anxious, Obese HEENT: PERRL/EOMI, Normal ENT Inspection Neck: Full Range of Motion, Normal Inspection (said it was sore) Respiratory: Chest Non Tender, No Accessory Muscle Use, No Respiratory Distres s, Wheezing Cardiovascular: Regular Rate, Rhythm, No JVD Gastrointestinal: non tender, soft, other (chronic skin changes and excoriation with succus appearing output from fistula, abdominal hernias) Extremity: Non Tender, Pedal Edema Neurologic/Psychiatric: Alert, Depressed Affect Skin: Normal Color, Warm/Dry, Other (chronic skin changes abdomen with fistula) Assessment/Plan Assessment/Plan Assessment/Plan Anemia of undetermined etiology Melena Progressive Dypsnea Chronic L pannus wound secondary to fistula Ventral wall abdominal hernias COPD Chronic atrial fibrillation UTI Depression with suicidal ideation reported by nurse Colonoscopy this morning Transfuse PRBCs as needed Cardiology has been consulted Monitor Hgb Chronic fistula, patient too high risk currently and she does not want anything done with it Pt has been spoken to by IM about moving to a [facility] and implementing DNR Supervisory-Addendum Brief Verification & Attestation Participated in pt care: history, MDM, physical Personally performed: exam, history, MDM, supervision of care Care discussed with: Medical Student Procedures: n/a Results interpretation: Verified all documentation Verification and Attestation of Medical Student E/M Service A medical student performed and documented this service in my presence. I reviewed and verified all information documented by the medical student and made modifications to such information, when appropriate. I personally performed the physical exam and medical decision making. Leticia Haddad, Dec 06, 2021,07:23 MYRNA SALMON Dec 06, 2021 05:55 LETICIA HADDAD DO Dec 06, 2021 11:23
[2021-12-06 06:01] LABS: ALBUMIN 3.1 GM/DL (3.2-4.5)
[2021-12-06 06:02] LABS: POTASSIUM 4.1 MMOL/L (3.6-5.0)
[2021-12-06 06:03] LABS: CALCIUM 8.6 MG/DL (8.5-10.1)
[2021-12-06 06:04] LABS: TOTAL PROTEIN 6.8 GM/DL (6.4-8.2)
[2021-12-06 06:06] LABS: BILIRUBIN,TOTAL 0.4 MG/DL (0.1-1.0)
[2021-12-06 06:08] LABS: CREATININE SERUM 0.91 MG/DL (0.60-1.30)
--- NOTE | 2021-12-06 06:32 | Progress Note ---
Subjective Date Seen by a Provider: Dec 06, 2021 Time Seen by a Provider: 10:30 Subjective/Events-last exam Patient doing about the same Tearful about everything EGD showed gastritis 2 days ago and colonoscopy today showed a polyp No evidence of any bleed Check meds labs Hemoglobin stable Patient very declined Review of Systems General: Fatigue, Malaise Objective Exam Last Set of Vital Signs Vital Signs Date Time Temp Pulse Resp B/P (MAP) Pulse Ox O2 Delivery O2 Flow Rate FiO2 12/06/21 04:30 36.0 95 18 143/64 (90) 94 Nasal Cannula 4.00 12/04/21 00:04 40 Capillary Refill : I&O Intake and Output 12/06/21 00:00 Intake Total 3428 ml Output Total 1064 ml Balance 2364 ml Intake Oral 3428 ml Output Urine Total 1060 ml Stool Total 4 ml # Bowel Movements 1 General: Alert, Other (Tearful) Lungs: Clear to Auscultation Heart: Regular Rate Psych/Mental Status: Mental Status NL Results Lab Laboratory Tests 12/05/21 09:10: White Blood Count 10.6, Red Blood Count 2.85L, Hemoglobin 6.8*L, Hematocrit 24L, Mean Corpuscular Volume 85, Mean Corpuscular Hemoglobin 24L, Mean Corpuscular Hemoglobin Concent 28L, Red Cell Distribution Width 19.5H, Platelet Count 258, Mean Platelet Volume 10.1, Immature Granulocyte % (Auto) 2, Neutrophils (%) (Auto) 81H, Lymphocytes (%) (Auto) 8L, Monocytes (%) (Auto) 9, Eosinophils (%) (Auto) 1, Basophils (%) (Auto) 0, Neutrophils # (Auto) 8.5H, Lymphocytes # (Auto) 0.8L, Monocytes # (Auto) 0.9, Eosinophils # (Auto) 0.1, Basophils # (Auto) 0.0, Immature Granulocyte # (Auto) 0.2H, Sodium Level 133L, Potassium Level 4.5, Chloride Level 88L, Carbon Dioxide Level 36H, Anion Gap 9, Blood Urea Nitrogen 28H, Creatinine 0.92, Estimat Glomerular Filtration Rate 67, BUN/Creatinine Ratio 30, Glucose Level 154H, Calcium Level 8.5, Corrected Calcium 9.3, Total Bilirubin 0.6, Aspartate Amino Transf (AST/SGOT) 10, Alanine Aminotransferase (ALT/SGPT) 10, Alkaline Phosphatase 69, Total Protein 6.6, Albumin 3.0L 12/05/21 20:30: Glucometer 179H 12/06/21 05:28: White Blood Count 11.4H, Red Blood Count 3.00L, Hemoglobin 7.0L, Hematocrit 26L, Mean Corpuscular Volume 87, Mean Corpuscular Hemoglobin 23L, Mean Corpuscular Hemoglobin Concent 27L, Red Cell Distribution Width 19.5H, Platelet Count 260, Mean Platelet Volume 10.3, Immature Granulocyte % (Auto) 3, Neutrophils (%) (Auto) 71, Lymphocytes (%) (Auto) 9L, Monocytes (%) (Auto) 16H, Eosinophils (%) (Auto) 0, Basophils (%) (Auto) 0, Neutrophils # (Auto) 8.1H, Lymphocytes # (Auto) 1.0, Monocytes # (Auto) 1.8H, Eosinophils # (Auto) 0.0, Basophils # (Auto) 0.0, Immature Granulocyte # (Auto) 0.3H, Sodium Level 132L, Potassium Level 4.1, Chloride Level 84L, Carbon Dioxide Level 36H, Anion Gap 12, Blood Urea Nitrogen 25H, Creatinine 0.91, Estimat Glomerular Filtration Rate 68, BUN/Creatinine Ratio 27, Glucose Level 155H, Calcium Level 8.6, Corrected Calcium 9.3, Total Bilirubin 0.4, Aspartate Amino Transf (AST/SGOT) 11, Alanine Aminotransferase (ALT/SGPT) 13, Alkaline Phosphatase 74, Total Protein 6.8, Albumin 3.1L Microbiology 12/04/21 Urine Culture - Preliminary, Resulted Mixed Bacterial Chelly Klebsiella pneumoniae Escherichia coli Testing In Progress 12/03/21 MRSA Screen - Final, Complete MRSA not isolated Assessment/Plan Assessment/Plan Assess & Plan/Chief Complaint Assessment: Severe symptomatic anemia GI bleed Transfusion required Hypertension Atrial fibrillation Anticoagulation maintained for CVA prophylaxis currently on hold Abdominal wound chronic due to fistula Depression with suicidal ideation reported by nurse Super morbid obesity BMI 47 Severe debility Neuropathy Plan: Transfuse Consult surgery Wound care Hold anticoagulation Bagley catheter maintained due to severe debility Needs long-term Consult cardiology 12/05/2021: Monitor hemoglobin Scopes tomorrow Needs DNR Needs long-term placement 12/06/2021: Appreciate Dr. Haddad Supportive care Needs DNR Needs long-term placement Clinical Quality Measures DVT/VTE Risk/Contraindication: Contraindications-Pharm: Other *list below* Other: severe anemia HARSHA CLARK DO Dec 06, 2021 06:32
[2021-12-06] MEDS ORDERED: LACTATED RINGERS 1,000 ML IV ONE (07:16)
[2021-12-06] MEDS ORDERED: KETAMINE 50 MG/5 ML SYRINGE ONE (07:19)
[2021-12-06] MEDS ORDERED: PROPOFOL INJECTION 50 ML IV ONE (07:20)
[2021-12-06] MEDS: RT-ALBUTEROL HFA 8.5 GM INHALER IH SCH ×4 (07:53→19:11)
[2021-12-06] MEDS: AMIODARONE 200 MG (CORDARONE) TAB PO SCH (09:07)
[2021-12-06] MEDS: PANTOPRAZOLE 40 MG (PROTONIX) VIAL IV SCH (09:08)
[2021-12-06] MEDS: GABAPENTIN 300 MG (NEURONTIN) CAP PO SCH ×2 (09:08→19:55)
[2021-12-06] MEDS: DOCUSATE SODIUM 100 MG (COLACE) CAP PO SCH ×2 (09:08→19:55)
[2021-12-06] MEDS: ALPRAZolam 0.25 MG (XANAX) TAB PO PRN ×2 (09:11→19:55)
--- NOTE | 2021-12-06 09:13 | Physical Therapy Progress Note ---
Therapy Progress Note Patient unavailable due to procedure. PT may attempt to see patient later today. CY HALL PT Dec 06, 2021 09:13
--- NOTE | 2021-12-06 09:14 | Progress Note - Cardiology ---
Cardiology SOAP Progress Note Subjective: Sitting up in bed Colonoscopy was done this morning No c/o CP or SOB or palpitations Objective: I&O/Vital Signs 12/05/21 12/06/21 12/06/21 12/06/21 21:27 00:30 04:30 08:00 Temp 36.4 36.6 36.0 35.6 Pulse 95 95 107 Resp 18 18 16 B/P (MAP) 138/77 (97) 143/64 (90) 115/61 (79) Pulse Ox 95 94 90 O2 Delivery Nasal Cannula Nasal Cannula Nasal Cannula O2 Flow Rate 4.00 4.00 5.00 12/06/21 08:05 Pulse 107 Resp 24 Pulse Ox 94 O2 Delivery OxyMask 12/06/21 00:00 Intake Total 3158 ml Output Total 914 ml Balance 2244 ml Constitutional: AAO x 3, other (morbidly obese) Respiratory: No accessory muscle use, No respiratory distress; chest expansion is symmetric, chest is bilaterally symmetric, other (good air entry) Cardiovascular: irregularly irregular; No JVD; S1 and S2, systolic murmur Gastrointestional: No tender; soft; No guarding; audible bowel sounds Extremities: no lower extremity edema bilateral Neurologic/Psychiatric: grossly intact (moves all extremities) Skin: warm/dry, other (chronic fistula L torso) Results/Procedures: Labs Laboratory Tests 12/05/21 20:30: Glucometer 179H 12/06/21 05:28: White Blood Count 11.4H, Red Blood Count 3.00L, Hemoglobin 7.0L, Hematocrit 26L, Mean Corpuscular Volume 87, Mean Corpuscular Hemoglobin 23L, Mean Corpuscular Hemoglobin Concent 27L, Red Cell Distribution Width 19.5H, Platelet Count 260, Mean Platelet Volume 10.3, Immature Granulocyte % (Auto) 3, Neutrophils (%) (Au to) 71, Lymphocytes (%) (Auto) 9L, Monocytes (%) (Auto) 16H, Eosinophils (%) (Auto) 0, Basophils (%) (Auto) 0, Neutrophils # (Auto) 8.1H, Lymphocytes # (Auto) 1.0, Monocytes # (Auto) 1.8H, Eosinophils # (Auto) 0.0, Basophils # (Auto) 0.0, Immature Granulocyte # (Auto) 0.3H, Sodium Level 132L, Potassium Level 4.1, Chloride Level 84L, Carbon Dioxide Level 36H, Anion Gap 12, Blood Urea Nitrogen 25H, Creatinine 0.91, Estimat Glomerular Filtration Rate 68, BUN/Creatinine Ratio 27, Glucose Level 155H, Calcium Level 8.6, Corrected Calcium 9.3, Total Bilirubin 0.4, Aspartate Amino Transf (AST/SGOT) 11, Alanine Aminotransferase (ALT/SGPT) 13, Alkaline Phosphatase 74, Total Protein 6.8, Albumin 3.1L Microbiology 12/04/21 Urine Culture - Preliminary, Resulted Mixed Bacterial Chelly Klebsiella pneumoniae Escherichia coli Testing In Progress 12/03/21 MRSA Screen - Final, Complete MRSA not isolated Laboratory Tests 12/05/21 09:10 12/06/21 05:28 A/P: Assessment: Shortness of breath, currently stable Diarrhea - managed by Dr Bowen Anemia of undetermined etiology - managed by Dr Bowen Chronic a-fib (per pt report) - reports taking OAC, but does not know which HTN - controlled DM 2 COPD H/O Iron deficiency anemia Plan: * Once a source of bleeding has been excluded or fully treated, we recommend to her attending physician to resume oral anticoag. * Monitor labs HANANE ROTHMAN Dec 06, 2021 09:14
[2021-12-06] MEDS: HYDROcodone/APAP 5 MG/325 MG (LORTAB) TAB PO PRN (09:18)
--- NOTE | 2021-12-06 10:03 | Occupational Therapy Eval ---
OT Evaluation-General/PLF Medical Diagnosis Admission Date Dec 03, 2021 at 22:30 Medical Diagnosis: SOB Onset Date: Dec 03, 2021 Therapy Diagnosis Therapy Diagnosis: n/a Precautions Precautions/Isolations: Fall Prevention, Standard Precautions Referral Physician: Andrés Garrido Reason: Evaluation/Treatment Medical History Additional Medical History morbid obesity, chronic abdominal wound Current History ED due to SOB and found to have severe anemia Social History Current Living Status: Children ADL-Prior Level of Function SCALE: Activities may be completed with or without assistive devices. 8-Gweprvugmj-[id number] completes the activity by him/herself with no assistance from a helper. 5-Set-up or Clean-up Assistance-helper sets up or cleans up; patient completes activity. [place] assists only prior to or following the activity. 4-Supervision or Touching Assistance-helper provides verbal cues and/or touching/steadying and/or contact guard assistance as patient completes activity. Assistance may be provided throughout the activity or intermittently. 3-Partial/Moderate Assistance-helper does LESS THAN HALF the effort. [place] lifts, holds or supports trunk or limbs, but provides less than half the effort. 2-Substantial/Maximal Assistance-helper does MORE THAN HALF the effort. [place] lifts or holds trunk or limbs and provides more than half the effort. 2-Dlmbdfzvt-jnhmsx does ALL the effort. Patient does none of the effort to compl ete the activity. Or, the assistance of 2 or more helpers is required for the patient to complete the activity. If activity was not attempted, code reason: 7-Patient Refused. 9-Not Applicable-not attempted and the patient did not perform the activity before the current illness, exacerbation or injury. 10-Not Attempted due to Environmental Limitations-(lack of equipment, weather restraints, etc.). 88-Not Attempted due to Medical Conditions or Safety Concerns. ADL PLOF Comments Pt requires assistance with all ADLs at OF, she is primarily bedboud. Deja lift utilized for transfers from bed to w/c. Pt able to eat independently, requires assistance with bathing and dressing, and toilets in bed. Self Care: Needed Some Help OT Current Status Subjective Pt in bed, initially declined OT services but agreeable to bed bath with encouragement. Pt reports pain, but doesn't verbalize pain rating. Mental Status/Objective Attachments: IV, Oxygen Current Upper Extremity ROM Slightly decreased, shoulder flexion to approx 90 degrees Upper Extremity Coordination WFL ADL-Treatment Eating (QC): 88 (Pt was NPO due to procedure) Shower/Bathe Self (QC): 1 (Assist x2, total assist with sponge bath.) Upper Body Dressing (QC): 2 (Max A with hospital gown.) On/Off Footwear (QC): 1 (Per clinical judgment.) Toileting Hygiene (QC): 1 Other Treatments Pt in bed, nurse aide present. Sponge bath performed at bed level, pt required assistance washing/drying all parts. Pt rolled towards R side with moderate assistance, L side with min A. Pt changed into clean hospital gown, max A. Pt reports she is at her baseline with ADL performance and declines further OT services. OT educated pt on purpose/benefit of OT, but she continued to decline. OT instructed pt to let nurse know if she feels like she would like OT services and the nurse could put in new OT orders. Post tx, pt in bed, call light in reach and all needs met, Nurse aide present. Education OT Patient Education: Correct positioning, Modified ADL techniques, Progress toward Goal/Update tx plan, Purpose of tx/functional activities, Rehab process Teaching Recipient: Patient Teaching Methods: Discussion Response to Teaching: Verbalize Understanding OT Shelter Goals Shelter Goals 1=Demonstrate adherence to instructed precautions during ADL tasks. 2=Patient will verbalize/demonstrate understanding of assistive devices/modifications for ADL. 3=Patient will improve strength/tolerance for activity to enable patient to perform ADL's. OT Education/Plan Problem List/Assessment Assessment: No Skilled OT Needs ID'd No skilled OT services indicated at this time, as pt is currently at her PLOF with all ADLS and requires total assistance. Discharge Recommendations Plan/Recommendations: Discharge/Goals Met Treatment Plan/Plan of Care Patient would benefit from OT for education, treatment and training to promote independence in ADL's, mobility, safety and/or upper extremity function for ADL's. Plan of Care: ADL Retraining, Functional Mobility Treatment Duration: Dec 06, 2021 Frequency: 1 time per week (eval only) Estimated Hrs Per Day: .25 hour per day Rehab Potential: Guarded Time/GCodes Start Time: 09:28 Stop Time: 09:40 Total Time Billed (hr/min): 12 Billed Treatment Time 1, EVL CRUMPACKER,ARACELI OT Dec 06, 2021 10:03
--- NOTE | 2021-12-06 10:32 | Anesthesia-General Post-Op ---
MAC Patient Condition Mental Status/LOC: Same as Preop Cardiovascular: Satisfactory Nausea/Vomiting: Absent Respiratory: Satisfactory Pain: Controlled Complications: Absent Post Op Complications Complications None Follow Up Care/Instructions Patient Instructions None needed. Anesthesiology Discharge Order Discharge Order Patient is doing well, no complaints, stable vital signs, no apparent adverse anesthesia problems. No complications reported per nursing. BERNA JEFF CRNA Dec 06, 2021 10:32
--- NOTE | 2021-12-06 10:48 | Physical Therapy Progress Note ---
Therapy Progress Note Patient declined PT on this date. Due to patients dependent PLOF and constant refusal of PT services patient is getting discharged from physical therapy services at this time. 1 ref CY HALL PT Dec 06, 2021 10:48
--- NOTE | 2021-12-06 12:27 | OPERATIVE REPORT ---
DATE OF SERVICE: 12/04/2021 PREOPERATIVE DIAGNOSES: Anemia, melena. POSTOPERATIVE DIAGNOSES: Hiatal hernia, gastritis. PROCEDURE: EGD. SURGEON: Leticia Haddad DO ANESTHESIA: Per WIRELINE SUPERVISOR. ESTIMATED BLOOD LOSS: None. COMPLICATIONS: None. INDICATIONS: The patient is a 71-year-old female with anemia and melena. She understands risks and benefits of procedure and wishes to proceed. Consent was signed in the chart. DESCRIPTION OF PROCEDURE: The patient was taken to the endoscopy suite, placed in left lateral recumbent position. Timeout was performed. Scope was inserted in mouth, down the esophagus, stomach and into the duodenum without difficulty. No polyps, masses or ulcerations within the duodenum. Scope was slowly retracted back into stomach where it was further insufflated. No polyps, masses or ulcerations. Some erythematous changes and changes suggestive of gastritis in the stomach. Scope was retroflexed noting a hiatal hernia and no other pathology. Scope was returned to its normal position, slowly withdrawn to distal esophagus. No polyps, masses or ulcerations. Scope was slowly retracted back to completely remove, noting no other pathology. No active source of any bleeding or changes that were suggestive of bleeding. Job ID: [id number] DocumentID: [id number] Dictated Date: 12/06/2021 09:30:49 Supervisor Gluing Date: 12/06/2021 12:26:47 Dictated By: LETICIA HADDAD DO
--- NOTE | 2021-12-06 12:36 | Progress Note - Cardiology ---
Cardiology SOAP Progress Note Subjective: No cp or palp or syncope Gen weakness and malaise present Shortness of breath with activity No n/v Diarrhea improved Objective: I&O/Vital Signs 12/06/21 12/06/21 12/06/21 12/06/21 04:30 08:00 08:05 09:30 Temp 36.0 35.6 Pulse 95 107 107 Resp 18 16 24 B/P (MAP) 143/64 (90) 115/61 (79) Pulse Ox 94 90 94 O2 Delivery Nasal Cannula Nasal Cannula OxyMask Nasal Cannula O2 Flow Rate 4.00 5.00 4.00 12/06/21 11:06 Pulse Ox 95 O2 Delivery Nasal Cannula O2 Flow Rate 5.00 12/06/21 00:00 Intake Total 3158 ml Output Total 914 ml Balance 2244 ml Constitutional: AAO x 3, other (morbidly obese) Respiratory: No accessory muscle use, No respiratory distress; chest expansion is symmetric, chest is bilaterally symmetric, other (good air entry) Cardiovascular: irregularly irregular; No JVD; S1 and S2, systolic murmur Gastrointestional: No tender; soft; No guarding; audible bowel sounds Extremities: no lower extremity edema bilateral Neurologic/Psychiatric: grossly intact (moves all extremities) Skin: warm/dry, other (chronic fistula L torso) Results/Procedures: Labs Laboratory Tests 12/05/21 20:30: Glucometer 179H 12/06/21 05:28: White Blood Count 11.4H, Red Blood Count 3.00L, Hemoglobin 7.0L, Hematocrit 26L, Mean Corpuscular Volume 87, Mean Corpuscular Hemoglobin 23L, Mean Corpuscular Hemoglobin Concent 27L, Red Cell Distribution Width 19.5H, Platelet Count 260, Mean Platelet Volume 10.3, Immature Granulocyte % (Auto) 3, Neutrophils (%) (Auto) 71, Lymphocytes (%) (Auto) 9L, Monocytes (%) (Auto) 16H, Eosinophils (%) (Auto) 0, Basophils (%) (Auto) 0, Neutrophils # (Auto) 8.1H, Lymphocytes # (Auto) 1.0, Monocytes # (Auto) 1.8H, Eosinophils # (Auto) 0.0, Basophils # (Auto) 0.0, Immature Granulocyte # (Auto) 0.3H, Sodium Level 132L, Potassium Level 4.1, Chloride Level 84L, Carbon Dioxide Level 36H, Anion Gap 12, Blood Urea Nitrogen 25H, Creatinine 0.91, Estimat Glomerular Filtration Rate 68, BUN/Creatinine Ratio 27, Glucose Level 155H, Calcium Level 8.6, Corrected Calcium 9.3, Total Bilirubin 0.4, Aspartate Amino Transf (AST/SGOT) 11, Alanine Aminotransferase (ALT/SGPT) 13, Alkaline Phosphatase 74, Total Protein 6.8, Albumin 3.1L Microbiology 12/04/21 Urine Culture - Preliminary, Resulted Mixed Bacterial Chelly Klebsiella pneumoniae Escherichia coli Testing In Progress 12/03/21 MRSA Screen - Final, Complete MRSA not isolated Laboratory Tests 12/05/21 09:10 12/06/21 05:28 A/P: Assessment: Shortness of breath, currently stable Diarrhea - managed by Dr Bowen Anemia of undetermined etiology - managed by Dr Bowen Chronic a-fib (per pt report) - reports taking OAC, but does not know which HTN - controlled DM 2 COPD H/O Iron deficiency anemia Plan: * Once a source of bleeding has been excluded or fully treated, we recommend resumption of oral anticoag. Dr Bowen to decide * Monitor labs WILMER DUNHAM MD FACP FAC CCDS Dec 06, 2021 12:36
--- NOTE | 2021-12-06 12:51 | Physician Query Clarification ---
Physician Query-General Query to Physician: The medical record reflects the following clinical evidence: Clinical Indicators: SOB on admission, per nursing, respiratory rate 16-24, nursing documentation on day of admission of shortness of air with exertion and at rest, shallow respirations, on 5 L O2 currently Sats consistently 90% on 4L P/F 60/86=860 Risk Factor(s): Obesity, Anemia, COPD, Home 02 at approx. 3L continuous Treatment: Supplemental 02 up to 5L, Albuterol, 2 units PRBC's, close monitoring of respiratory status 1. Acute on chronic Respiratory failure, present on admission 2. Chronic respiratory failure 3. Other explanation of clinical findings 4. Unable to determine (no explanation for clinical findings) Please clarify and document your clinical opinion in the progress notes and discharge summary including the definitive and/or presumptive diagnosis, (suspected or probable), related to the above clinical findings. Please include clinical findings supporting your diagnosis. Gloria Cr MSN, RN Clinical Clinical Trial Data Manager [phone] [email or web address] PHYSICIAN RESPONSE: Based on the clinical findings in the record, please respond to the query above on this document as an addendum. Physician Response: Physician Response yes If you have questions please contact: History Department Chair: Ext: Thank you for your time and cooperation. Clinical Clinical Trial Data Manager/History Department Chair This is a permanent part of the medical record GLORIA CR Dec 06, 2021 12:51 HARSHA CLARK DO Dec 06, 2021 20:53
--- NOTE | 2021-12-06 12:54 | OPERATIVE REPORT ---
DATE OF SERVICE: 12/06/2021 PREOPERATIVE DIAGNOSES: Anemia, melena. POSTOPERATIVE DIAGNOSIS: Transverse colon polyp. PROCEDURES PERFORMED: Colonoscopy with hot biopsy polypectomy x1. SURGEON: Leticia Haddad DO. ANESTHESIA: Per PATTERN AND CHAIN MAKER. ESTIMATED BLOOD LOSS: None. COMPLICATIONS: None. INDICATIONS FOR PROCEDURE: The patient is a 71-year-old female, who is anemic. She understands the risks and benefits of the procedure and wishes to proceed. Consent was signed in the chart. DESCRIPTION OF PROCEDURE: The patient was taken to the endoscopy suite and placed in a left lateral recumbent position. A timeout was performed. Digital rectal exam was performed. No palpable polyps, masses or ulcerations. Scope was inserted into the rectum and advanced all the way to the cecum. Prep was adequate with irrigation and suction. There was still a lot of liquid stool throughout the colon. Once in the cecum, the scope was then slowly retracted back. No polyps, masses or ulcerations visualized within the cecum, ascending colon. In the transverse colon, a small polyp was present, which hot biopsy polypectomy was performed. There was also a colonic submucosal lipoma present. No evidence of any bleeding. Scope was then continuously and slowly retracted back. No polyps, masses or ulcerations within the remainder of the transverse, descending and sigmoid colon. Once in the rectum, scope was inserted and retracted multiple times, noting no other pathology. The patient tolerated the procedure well without any complications, taken back to the recovery room in a stable condition. RECOMMENDATIONS: The patient had no evidence of any source of anemia in the colon. The patient if continues to be anemic, we recommend small bowel capsule, which is unable to be performed at out facility, which he would need to be referred to GI for. Job ID: [id number] DocumentID: [id number] Dictated Date: 12/06/2021 09:29:07 Electric Appliance Installer Date: 12/06/2021 12:54:06 Dictated By: LETICIA HADDAD DO
[2021-12-06] MEDS: ACETAMINOPHEN 500 MG TAB (TYLENOL) PO SCH (19:55)
[2021-12-06] MEDS: MELATONIN 3 MG TABLET PO PRN (19:55)
[2021-12-07] VITALS (10 sets, daily range): BP systolic 91–112; BP diastolic 52–70
--- NOTE | 2021-12-07 05:18 | Progress Note ---
Subjective Date Seen by a Provider: Dec 07, 2021 Time Seen by a Provider: 10:00 Subjective/Events-last exam Patient doing the same Xanax and hydrocodone helps calm her Yelling in the strong continuously earlier today Patient is very end-stage and appears to be a Hospice candidate Needs NHP Hgb low again today so will give one more unit of blood Review of Systems Gastrointestinal: Abdominal Pain Objective Exam Last Set of Vital Signs Vital Signs Date Time Temp Pulse Resp B/P (MAP) Pulse Ox O2 Delivery O2 Flow Rate FiO2 12/07/21 03:17 35.9 98 22 112/66 (81) 96 Nasal Cannula 5.00 12/04/21 00:04 40 Capillary Refill : I&O Intake and Output 12/07/21 00:00 Intake Total 1120 ml Output Total 1000 ml Balance 120 ml Intake Oral 1120 ml Output Urine Total 1000 ml # Bowel Movements 1 General: Other (sleeping, chronically ill and severe debility and morbid obesity) Lungs: Clear to Auscultation Heart: Regular Rate Results Lab Laboratory Tests 12/06/21 05:28: White Blood Count 11.4H, Red Blood Count 3.00L, Hemoglobin 7.0L, Hematocrit 26L, Mean Corpuscular Volume 87, Mean Corpuscular Hemoglobin 23L, Mean Corpuscular Hemoglobin Concent 27L, Red Cell Distribution Width 19.5H, Platelet Count 260, Mean Platelet Volume 10.3, Immature Granulocyte % (Auto) 3, Neutrophils (%) (Auto) 71, Lymphocytes (%) (Auto) 9L, Monocytes (%) (Auto) 16H, Eosinophils (%) (Auto) 0, Basophils (%) (Auto) 0, Neutrophils # (Auto) 8.1H, Lymphocytes # (Auto) 1.0, Monocytes # (Auto) 1.8H, Eosinophils # (Auto) 0.0, Basophils # (Auto) 0.0, Immature Granulocyte # (Auto) 0.3H, Sodium Level 132L, Potassium Level 4.1, Chloride Level 84L, Carbon Dioxide Level 36H, Anion Gap 12, Blood Urea Nitrogen 25H, Creatinine 0.91, Estimat Glomerular Filtration Rate 68, BUN/Creatinine Ratio 27, Glucose Level 155H, Calcium Level 8.6, Corrected Calcium 9.3, Total Bilirubin 0.4, Aspartate Amino Transf (AST/SGOT) 11, Alanine Aminotransferase (ALT/SGPT) 13, Alkaline Phosphatase 74, Total Protein 6.8, Albumin 3.1L 12/06/21 14:01: Lab Scanned Report Transfusion Reaction Form Microbiology 12/04/21 Urine Culture - Preliminary, Resulted Mixed Bacterial Chelly Klebsiella pneumoniae Escherichia coli Testing In Progress 12/03/21 MRSA Screen - Final, Complete MRSA not isolated Assessment/Plan Assessment/Plan Assess & Plan/Chief Complaint Assessment: Severe symptomatic anemia GI bleed Transfusion required Hypertension Atrial fibrillation Anticoagulation maintained for CVA prophylaxis currently on hold 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 Haddad Supportive care Needs DNR Needs custodial placement 12/07/21: Transfuse Needs [facility] Hospice candidate in my opinion Clinical Quality Measures DVT/VTE Risk/Contraindication: Contraindications-Pharm: Other *list below* Other: severe anemia HARSHA CLARK DO Dec 07, 2021 05:18
[2021-12-07 06:01] LABS: BASOPHILS % (AUTO) 0 % (0-10); EOSINOPHILS % (AUTO) 0 % (0-10); HEMATOCRIT 23 % (35-52); LYMPHOCYTES # (AUTO) 0.7 10^3/uL (1.0-4.0); LYMPHOCYTES % (AUTO) 9 % (12-44); MEAN CORPUSCULAR HEMOGLOBIN 24 pg (25-34); MEAN CORPUSCULAR HGB CONC 28 g/dL (32-36); MEAN CORPUSCULAR VOLUME 86 fL (80-99); MEAN PLATELET VOLUME 10.5 fL (9.0-12.2); MONOCYTES # (AUTO) 0.8 10^3/uL (0.0-1.0); MONOCYTES % (AUTO) 9 % (0-12); NEUTROPHILS # (AUTO) 6.9 10^3/uL (1.8-7.8); NEUTROPHILS % (AUTO) 80 % (42-75); PLATELET COUNT 263 10^3/uL (130-400); WHITE BLOOD COUNT 8.6 10^3/uL (4.3-11.0)
[2021-12-07 06:11] LABS: ALBUMIN 2.9 GM/DL (3.2-4.5); POTASSIUM 4.5 MMOL/L (3.6-5.0)
[2021-12-07 06:12] LABS: HEMOGLOBIN 6.4 g/dL (11.5-16.0)
[2021-12-07 06:13] LABS: CALCIUM 8.5 MG/DL (8.5-10.1)
[2021-12-07 06:14] LABS: TOTAL PROTEIN 6.4 GM/DL (6.4-8.2)
[2021-12-07 06:16] LABS: BILIRUBIN,TOTAL 0.4 MG/DL (0.1-1.0)
[2021-12-07 06:17] LABS: CREATININE SERUM 1.05 MG/DL (0.60-1.30)
[2021-12-07] MEDS: RT-ALBUTEROL HFA 8.5 GM INHALER IH SCH ×4 (06:38→21:16)
[2021-12-07] MEDS: AMIODARONE 200 MG (CORDARONE) TAB PO SCH (07:44)
[2021-12-07] MEDS: PANTOPRAZOLE 40 MG (PROTONIX) VIAL IV SCH (07:44)
[2021-12-07] MEDS: ALPRAZolam 0.25 MG (XANAX) TAB PO PRN ×2 (07:44→16:00)
[2021-12-07] MEDS: ACETAMINOPHEN 325 MG TABLET PO PRN (07:44)
[2021-12-07] MEDS: GABAPENTIN 300 MG (NEURONTIN) CAP PO SCH ×2 (07:44→19:26)
[2021-12-07] MEDS ORDERED: NS IV 500 ML 500 ML IV SCH ×2 (08:00)
[2021-12-07] MEDS ORDERED: FUROSEMIDE 40 MG/4 ML INJ (LASIX) IVP ONE (08:00)
[2021-12-07] MEDS: DOCUSATE SODIUM 100 MG (COLACE) CAP PO SCH ×2 (09:00→19:27)
[2021-12-07] MEDS: HYDROcodone/APAP 5 MG/325 MG (LORTAB) TAB PO PRN ×2 (09:04→16:00)
--- NOTE | 2021-12-07 12:24 | Progress Note - Cardiology ---
Cardiology SOAP Progress Note Subjective: Diarrhea resolved No cp or palp or syncope Gen weakness and malaise Shortness of breath with activity No n/v Objective: I&O/Vital Signs 12/07/21 12/07/21 12/07/21 12/07/21 03:17 06:38 06:38 07:29 Temp 35.9 35.9 36.7 Pulse 98 95 105 Resp 22 16 B/P (MAP) 112/66 (81) 109/70 (83) Pulse Ox 96 99 95 97 O2 Delivery Nasal Cannula Nasal Cannula Nasal Cannula O2 Flow Rate 5.00 5.00 7.00 12/07/21 12/07/21 12/07/21 12/07/21 08:59 09:57 10:56 11:14 Temp 36.0 36.0 Pulse 96 100 Resp 20 18 B/P (MAP) 105/69 109/52 Pulse Ox 92 99 97 O2 Delivery Nasal Cannula Nasal Cannula Nasal Cannula Nasal Cannula O2 Flow Rate 5.00 5.00 5.00 5.00 12/07/21 11:48 Temp 36.0 Pulse 96 Resp 20 B/P (MAP) 105/69 (81) Pulse Ox 99 O2 Delivery Nasal Cannula O2 Flow Rate 5.00 12/07/21 00:00 Intake Total 1120 ml Output Total 650 ml Balance 470 ml Constitutional: AAO x 3, other (morbidly obese) Respiratory: No accessory muscle use, No respiratory distress; chest expansion is symmetric, chest is bilaterally symmetric, other (good air entry) Cardiovascular: irregularly irregular; No JVD; S1 and S2, systolic murmur Gastrointestional: No tender; soft; No guarding; audible bowel sounds Extremities: no lower extremity edema bilateral Neurologic/Psychiatric: grossly intact (moves all extremities) Skin: warm/dry, other (chronic fistula L torso) Results/Procedures: Labs Laboratory Tests 12/06/21 14:01: Lab Scanned Report Transfusion Reaction Form 12/07/21 05:34: White Blood Count 8.6, Red Blood Count 2.70L, Hemoglobin 6.4*L, Hematocrit 23L, Mean Corpuscular Volume 86, Mean Corpuscular Hemoglobin 24L, Mean Corpuscular Hemoglobin Concent 28L, Red Cell Distribution Width 19.7H, Platelet Count 263, Mean Platelet Volume 10.5, Immature Granulocyte % (Auto) 2, Neutrophils (%) (Auto) 80H, Lymphocytes (%) (Auto) 9L, Monocytes (%) (Auto) 9, Eosinophils (%) (Auto) 0, Basophils (%) (Auto) 0, Neutrophils # (Auto) 6.9, Lymphocytes # (Auto) 0.7L, Monocytes # (Auto) 0.8, Eosinophils # (Auto) 0.0, Basophils # (Auto) 0.0, Immature Granulocyte # (Auto) 0.2H, Sodium Level 127L, Potassium Level 4.5, Chloride Level 81L, Carbon Dioxide Level 36H, Anion Gap 10, Blood Urea Nitrogen 29H, Creatinine 1.05, Estimat Glomerular Filtration Rate 57, BUN/Creatinine Ratio 28, Glucose Level 158H, Calcium Level 8.5, Corrected Calcium 9.4, Total Bilirubin 0.4, Aspartate Amino Transf (AST/SGOT) 11, Alanine Aminotransferase (ALT/SGPT) 12, Alkaline Phosphatase 64, Total Protein 6.4, Albumin 2.9L Microbiology 12/04/21 Urine Culture - Preliminary, Resulted Mixed Bacterial Chelly Klebsiella pneumoniae Escherichia coli Testing In Progress 12/03/21 MRSA Screen - Final, Complete MRSA not isolated Laboratory Tests 12/06/21 05:28 12/07/21 05:34 A/P: Assessment: Shortness of breath, currently stable Diarrhea - managed by Dr Bowen Anemia of undetermined etiology - managed by Dr Bowen Chronic a-fib (per pt report) - reports taking OAC, but does not know which HTN - controlled DM 2 COPD H/O Iron deficiency anemia Plan: * Once a source of bleeding has been excluded or fully treated, we recommend resumption of oral anticoag. Dr Bowen to decide * Monitor labs WILMER DUNHAM MD FACP FAC CCDS Dec 07, 2021 12:24
[2021-12-07] MEDS: ACETAMINOPHEN 500 MG TAB (TYLENOL) PO SCH (19:25)
[2021-12-07] MEDS: MELATONIN 3 MG TABLET PO PRN (19:25)
[2021-12-08 01:03] VITALS: BP 112/68
[2021-12-08] MEDS: ALPRAZolam 0.25 MG (XANAX) TAB PO PRN ×3 (01:29→20:21)
[2021-12-08 04:00] VITALS: BP 110/54
[2021-12-08 05:38] LABS: BASOPHILS % (AUTO) 0 % (0-10); EOSINOPHILS % (AUTO) 0 % (0-10); HEMATOCRIT 27 % (35-52); HEMOGLOBIN 7.5 g/dL (11.5-16.0); LYMPHOCYTES # (AUTO) 0.8 10^3/uL (1.0-4.0); LYMPHOCYTES % (AUTO) 9 % (12-44); MEAN CORPUSCULAR HEMOGLOBIN 24 pg (25-34); MEAN CORPUSCULAR HGB CONC 28 g/dL (32-36); MEAN CORPUSCULAR VOLUME 87 fL (80-99); MEAN PLATELET VOLUME 10.4 fL (9.0-12.2); MONOCYTES # (AUTO) 0.9 10^3/uL (0.0-1.0); MONOCYTES % (AUTO) 10 % (0-12); NEUTROPHILS # (AUTO) 7.5 10^3/uL (1.8-7.8); NEUTROPHILS % (AUTO) 80 % (42-75); PLATELET COUNT 254 10^3/uL (130-400); WHITE BLOOD COUNT 9.4 10^3/uL (4.3-11.0)
[2021-12-08 05:53] LABS: POTASSIUM 4.5 MMOL/L (3.6-5.0)
[2021-12-08 05:54] LABS: CALCIUM 8.6 MG/DL (8.5-10.1)
[2021-12-08 05:56] LABS: TOTAL PROTEIN 6.6 GM/DL (6.4-8.2)
[2021-12-08 05:57] LABS: BILIRUBIN,TOTAL 0.6 MG/DL (0.1-1.0)
[2021-12-08 05:59] LABS: CREATININE SERUM 1.16 MG/DL (0.60-1.30)
[2021-12-08] MEDS: RT-ALBUTEROL HFA 8.5 GM INHALER IH SCH ×4 (07:06→19:37)
[2021-12-08 07:30] VITALS: BP 115/70
--- NOTE | 2021-12-08 07:40 | Progress Note ---
Subjective Date Seen by a Provider: Dec 08, 2021 Time Seen by a Provider: 16:30 Subjective/Events-last exam Patient very confused Has stripped her gown off Patient can no longer make decisions for herself Family and social work need to build plan for the next step I feel she is hospice candidate Can't restart anticoagulation Review of Systems General: Fatigue, Malaise Neurological: Confusion Objective Exam Last Set of Vital Signs Vital Signs Date Time Temp Pulse Resp B/P (MAP) Pulse Ox O2 Delivery O2 Flow Rate FiO2 12/08/21 07:36 Nasal Cannula 5.00 12/08/21 07:30 35.3 100 16 115/70 (85) 91 12/04/21 00:04 40 Capillary Refill : I&O Intake and Output 12/07/21 23:59 Intake Total 1990 ml Output Total 1325 ml Balance 665 ml Intake Oral 1450 ml Other 540 ml Output Urine Total 1325 ml General: Other (Sleeping and confused) Lungs: Clear to Auscultation Heart: Regular Rate Results Lab Laboratory Tests 12/08/21 05:14: White Blood Count 9.4, Red Blood Count 3.08L, Hemoglobin 7.5L, Hematocrit 27L, Mean Corpuscular Volume 87, Mean Corpuscular Hemoglobin 24L, Mean Corpuscular Hemoglobin Concent 28L, Red Cell Distribution Width 19.5H, Platelet Count 254, M herson Platelet Volume 10.4, Immature Granulocyte % (Auto) 2, Neutrophils (%) (Auto) 80H, Lymphocytes (%) (Auto) 9L, Monocytes (%) (Auto) 10, Eosinophils (%) (Auto) 0, Basophils (%) (Auto) 0, Neutrophils # (Auto) 7.5, Lymphocytes # (Auto) 0.8L, Monocytes # (Auto) 0.9, Eosinophils # (Auto) 0.0, Basophils # (Auto) 0.0, Immature Granulocyte # (Auto) 0.1, Sodium Level 125*L, Potassium Level 4.5, Chloride Level 80L, Carbon Dioxide Level 36H, Anion Gap 9, Blood Urea Nitrogen 31H, Creatinine 1.16, Estimat Glomerular Filtration Rate 51, BUN/Creatinine Ratio 27, Glucose Level 137H, Calcium Level 8.6, Corrected Calcium 9.4, Total Bilirubin 0.6, Aspartate Amino Transf (AST/SGOT) 10, Alanine Aminotransferase (ALT/SGPT) 13, Alkaline Phosphatase 64, Total Protein 6.6, Albumin 3.0L Microbiology 12/04/21 Urine Culture - Preliminary, Resulted Mixed Bacterial Chelly Klebsiella pneumoniae Escherichia coli Testing In Progress 12/03/21 MRSA Screen - Final, Complete MRSA not isolated Assessment/Plan Assessment/Plan Assess & Plan/Chief Complaint Assessment: Severe symptomatic anemia status post transfusions Hyponatremia GI bleed Transfusion required Hypertension Atrial fibrillation Anticoagulation maintained for CVA prophylaxis currently on hold 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 Haddad Supportive care Needs DNR Needs long-term placement 12/07/21: Transfuse Needs [facility] Hospice candidate in my opinion 12/08/2021: Transfuse as necessary Fluid restriction Patient appears to be end-stage liver disease from [place] Clinical Quality Measures DVT/VTE Risk/Contraindication: Contraindications-Pharm: Other *list below* Other: severe anemia HARSHA CLARK DO Dec 08, 2021 07:40
[2021-12-08] MEDS: AMIODARONE 200 MG (CORDARONE) TAB PO SCH (08:38)
[2021-12-08] MEDS: PANTOPRAZOLE 40 MG (PROTONIX) VIAL IV SCH (08:38)
[2021-12-08] MEDS: GABAPENTIN 300 MG (NEURONTIN) CAP PO SCH ×2 (08:38→20:21)
[2021-12-08] MEDS: SODIUM CHLORIDE 1 GM TABLET PO SCH ×2 (08:51→20:23)
[2021-12-08] MEDS: DOCUSATE SODIUM 100 MG (COLACE) CAP PO SCH ×2 (09:51→19:56)
--- NOTE | 2021-12-08 14:53 | Progress Note - Cardiology ---
Cardiology SOAP Progress Note Subjective: Somnolent, difficult to awaken. Does not report any symptoms Objective: I&O/Vital Signs 12/08/21 12/08/21 12/08/21 12/08/21 04:00 07:06 07:30 07:36 Temp 35.0 35.3 Pulse 95 100 Resp 20 16 B/P (MAP) 110/54 (72) 115/70 (85) Pulse Ox 93 96 91 O2 Delivery Nasal Cannula Nasal Cannula Nasal Cannula Nasal Cannula O2 Flow Rate 6.00 5.00 6.00 5.00 12/08/21 12/08/21 10:25 14:24 Pulse Ox 95 95 O2 Delivery Nasal Cannula Nasal Cannula O2 Flow Rate 5.00 5.00 12/08/21 00:00 Intake Total 1500 ml Output Total 950 ml Balance 550 ml Constitutional: other (somnolent, morbidly obese) Respiratory: No accessory muscle use, No respiratory distress; chest expansion is symmetric, chest is bilaterally symmetric, other (good air entry) Cardiovascular: irregularly irregular; No JVD; S1 and S2, systolic murmur Gastrointestional: No tender; soft; No guarding; audible bowel sounds Extremities: no lower extremity edema bilateral Neurologic/Psychiatric: grossly intact (moves all extremities) Skin: warm/dry, other (chronic fistula L torso) Results/Procedures: Labs Laboratory Tests 12/08/21 05:14: White Blood Count 9.4, Red Blood Count 3.08L, Hemoglobin 7.5L, Hematocrit 27L, Mean Corpuscular Volume 87, Mean Corpuscular Hemoglobin 24L, Mean Corpuscular Hemoglobin Concent 28L, Red Cell Distribution Width 19.5H, Platelet Count 254, Mean Platelet Volume 10.4, Immature Granulocyte % (Auto) 2, Neutrophils (%) (Auto) 80H, Lymphocytes (%) (Auto) 9L, Monocytes (%) (Auto) 10, Eosinophils (%) (Auto) 0, Basophils (%) (Auto) 0, Neutrophils # (Auto) 7.5, Lymphocytes # (Auto) 0.8L, Monocytes # (Auto) 0.9, Eosinophils # (Auto) 0.0, Basophils # (Auto) 0.0, Immature Granulocyte # (Auto) 0.1, Sodium Level 125*L, Potassium Level 4.5, Chloride Level 80L, Carbon Dioxide Level 36H, Anion Gap 9, Blood Urea Nitrogen 31H, Creatinine 1.16, Estimat Glomerular Filtration Rate 51, BUN/Creatinine Ratio 27, Glucose Level 137H, Calcium Level 8.6, Corrected Calcium 9.4, Total Bilirubin 0.6, Aspartate Amino Transf (AST/SGOT) 10, Alanine Aminotransferase (ALT/SGPT) 13, Alkaline Phosphatase 64, Total Protein 6.6, Albumin 3.0L Microbiology 12/04/21 Urine Culture - Preliminary, Resulted Mixed Bacterial Chelly Klebsiella pneumoniae Escherichia coli Testing In Progress 12/03/21 MRSA Screen - Final, Complete MRSA not isolated Laboratory Tests 12/07/21 05:34 12/08/21 05:14 A/P: Assessment: Shortness of breath, currently stable Diarrhea - managed by Dr Bowen Anemia of undetermined etiology - managed by Dr Bowen Chronic a-fib (per pt report) - reports taking OAC, but does not know which HTN - controlled DM 2 COPD H/O Iron deficiency anemia Plan: * Once a source of bleeding has been excluded or fully treated, we recommend resumption of oral anticoag. Dr Bowen to decide * Monitor labs WILMER DUNHAM MD FACP FAC CCDS Dec 08, 2021 14:53
[2021-12-08 16:39] VITALS: BP 104/69
[2021-12-08] MEDS: HYDROcodone/APAP 5 MG/325 MG (LORTAB) TAB PO PRN (20:21)
[2021-12-08] MEDS: MELATONIN 3 MG TABLET PO PRN (20:22)
[2021-12-08] MEDS: ACETAMINOPHEN 500 MG TAB (TYLENOL) PO SCH (20:22)
[2021-12-09] VITALS: BP 106/70
[2021-12-09 05:54] LABS: BASOPHILS % (AUTO) 0 % (0-10); EOSINOPHILS % (AUTO) 0 % (0-10); HEMATOCRIT 27 % (35-52); HEMOGLOBIN 7.5 g/dL (11.5-16.0); LYMPHOCYTES # (AUTO) 0.8 10^3/uL (1.0-4.0); LYMPHOCYTES % (AUTO) 9 % (12-44); MEAN CORPUSCULAR HEMOGLOBIN 24 pg (25-34); MEAN CORPUSCULAR HGB CONC 28 g/dL (32-36); MEAN CORPUSCULAR VOLUME 87 fL (80-99); MEAN PLATELET VOLUME 10.2 fL (9.0-12.2); MONOCYTES # (AUTO) 0.8 10^3/uL (0.0-1.0); MONOCYTES % (AUTO) 9 % (0-12); NEUTROPHILS # (AUTO) 7.3 10^3/uL (1.8-7.8); NEUTROPHILS % (AUTO) 81 % (42-75); PLATELET COUNT 256 10^3/uL (130-400)
[2021-12-09 06:06] LABS: PROTHROMBIN TIME PATIENT 13.7 SEC (12.2-14.7)
[2021-12-09 06:07] LABS: POTASSIUM 4.5 MMOL/L (3.6-5.0)
[2021-12-09 06:08] LABS: CALCIUM 8.5 MG/DL (8.5-10.1)
[2021-12-09 06:09] LABS: TOTAL PROTEIN 6.5 GM/DL (6.4-8.2)
[2021-12-09 06:11] LABS: BILIRUBIN,TOTAL 0.7 MG/DL (0.1-1.0)
[2021-12-09 06:13] LABS: CREATININE SERUM 1.11 MG/DL (0.60-1.30)
--- NOTE | 2021-12-09 06:59 | Progress Note - Surgery ---
MYRNA SALMON 12/09/21 0659: Subjective Date Seen by a Provider: Dec 09, 2021 Time Seen by a Provider: 06:40 Subjective/Events-last exam Pt received another PRBC transfusion on 12/07 (her 3rd total). Pt had a hard time staying awake for exam, did not want to respond. Pt reported she was feeling "fine" and that her stools and stomach felt "better." Pt said she is not nauseas and has not vomited. Pt is currently on fluid restriction. She denies fever, chills, and chest pain at this time. Review of Systems General: No Chills; Fatigue HEENT: Head Aches; No Visual Changes Pulmonary: Dyspnea, Cough Cardiovascular: No: Chest Pain, Palpitations Gastrointestinal: No: Nausea, Vomiting Genitourinary: Frequency; No Hematuria Musculoskeletal: No: arm pain, leg pain Neurological: Weakness; No: Change in speech Focused Exam Respiratory: Normal Breath Sounds, No Respiratory Distress Cardiovascular: Systolic Murmur, Irregularly Irregular Skin: normal color, warm/dry Objective Exam Vital Signs Date Time Temp Pulse Resp B/P (MAP) Pulse Ox O2 Delivery O2 Flow Rate FiO2 12/09/21 00:00 36.1 90 20 106/70 (82) 100 Nasal Cannula 5.00 12/08/21 20:35 Nasal Cannula 5.00 12/08/21 19:35 93 Nasal Cannula 5.00 12/08/21 16:39 36.7 98 22 104/69 (81) 100 Nasal Cannula 5.00 12/08/21 14:24 95 Nasal Cannula 5.00 12/08/21 10:25 95 Nasal Cannula 5.00 12/08/21 07:36 Nasal Cannula 5.00 12/08/21 07:30 35.3 100 16 115/70 (85) 91 Nasal Cannula 6.00 12/08/21 07:06 96 Nasal Cannula 5.00 I & O 12/09/21 07:00 Intake Total 472 ml Output Total 1100 ml Balance -628 ml Capillary Refill : General Appearance: No Apparent Distress, Anxious, Obese HEENT: PERRL/EOMI Neck: Full Range of Motion, Normal Inspection (said it was sore) Respiratory: Chest Non Tender, Lungs Clear, No Respiratory Distress Cardiovascular: Systolic Murmur, Irregularly Irregular Peripheral Pulses: 3+ Radial Pulses (R), 3+ Radial Pulses (L) Gastrointestinal: soft, no organomegaly, tenderness (R side abd tender), other (chronic skin changes and excoriation with succus appearing output from fistula, abdominal hernias) Extremity: Non Tender, Pedal Edema Neurologic/Psychiatric: No Alert (falls asleep frequently); Depressed Affect Skin: Warm/Dry, Other (chronic skin changes abdomen with fistula) Lymphatic: No Adenopathy Results Lab Laboratory Tests 12/09/21 05:41: White Blood Count 9.0, Red Blood Count 3.10L, Hemoglobin 7.5L, Hematocrit 27L, Mean Corpuscular Volume 87, Mean Corpuscular Hemoglobin 24L, Mean Corpuscular Hemoglobin Concent 28L, Red Cell Distribution Width 19.9H, Platelet Count 256, Mean Platelet Volume 10.2, Immature Granulocyte % (Auto) 1, Neutrophils (%) (Auto) 81H, Lymphocytes (%) (Auto) 9L, Monocytes (%) (Auto) 9, Eosinophils (%) (Auto) 0, Basophils (%) (Auto) 0, Neutrophils # (Auto) 7.3, Lymphocytes # (Auto) 0.8L, Monocytes # (Auto) 0.8, Eosinophils # (Auto) 0.0, Basophils # (Auto) 0.0, Immature Granulocyte # (Auto) 0.1, Prothrombin Time 13.7, INR Comment 1.0, Sodium Level 129L, Potassium Level 4.5, Chloride Level 81L, Carbon Dioxide Level 38H, Anion Gap 10, Blood Urea Nitrogen 31H, Creatinine 1.11, Estimat Glomerular Filtration Rate 53, BUN/Creatinine Ratio 28, Glucose Level 128H, Calcium Level 8.5, Corrected Calcium 9.3, Total Bilirubin 0.7, Aspartate Amino Transf (AST/SGOT) 11, Alanine Aminotransferase (ALT/SGPT) 9, Alkaline Phosphatase 69, Ammonia 23, Total Protein 6.5, Albumin 3.0L Microbiology 12/04/21 Urine Culture - Preliminary, Resulted Mixed Bacterial Chelly Klebsiella pneumoniae Escherichia coli Testing In Progress 12/03/21 MRSA Screen - Final, Complete MRSA not isolated Assessment/Plan Assessment/Plan Assessment/Plan Assessment: Severe symptomatic anemia status post transfusions GI bleed suspected Atrial fibrillation Anticoagulation on hold 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 Hgb 7.5 and had had 3 units prbc total since admission. Patient has some confusion. No complaints of abdominal pain. Objective Exam General Appearance: No Apparent Distress, Anxious, Obese HEENT: PERRL/EOMI Neck: Normal Inspection (said it was sore) Respiratory: Chest Non Tender, No Respiratory Distress Cardiovascular: No JVD, Irregularly Irregular Gastrointestinal: soft, other (chronic skin changes and excoriation with succus appearing output from fistula, abdominal hernias) Extremity: Non Tender, Pedal Edema Neurologic/Psychiatric: Alert; No Oriented x3; Depressed Affect Skin: Warm/Dry, Other (chronic skin changes abdomen with fistula) Lymphatic: No Adenopathy Assessment/Plan Assessment/Plan Assessment/Plan Severe symptomatic anemia status post transfusions GI bleed suspected Morbid obesity Atrial fibrillation Anticoagulation on hold duet to anemia 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 Supervisory-Addendum Brief Verification & Attestation Participated in pt care: history, MDM, physical Personally performed: exam, history, MDM, supervision of care Care discussed with: Medical Student Procedures: n/a Results interpretation: Verified all documentation Verification and Attestation of Medical Student E/M Service A medical student performed and documented this service in my presence. I reviewed and verified all information documented by the medical student and made modifications to such information, when appropriate. I personally performed the physical exam and medical decision making. Leticia Haddad, Dec 09, 2021,10:34 MYRNA SALMON Dec 09, 2021 06:59 LETICIA HADDAD DO Dec 09, 2021 10:34
[2021-12-09 08:00] VITALS: BP 98/50
[2021-12-09] MEDS: GABAPENTIN 300 MG (NEURONTIN) CAP PO SCH ×2 (08:04→20:28)
[2021-12-09] MEDS: HYDROcodone/APAP 5 MG/325 MG (LORTAB) TAB PO PRN ×2 (08:04→20:28)
[2021-12-09] MEDS: ALPRAZolam 0.25 MG (XANAX) TAB PO PRN ×2 (08:04→20:28)
[2021-12-09] MEDS: AMIODARONE 200 MG (CORDARONE) TAB PO SCH (08:04)
[2021-12-09] MEDS: DOCUSATE SODIUM 100 MG (COLACE) CAP PO SCH ×2 (08:56→20:24)
[2021-12-09] MEDS: PANTOPRAZOLE 40 MG (PROTONIX) VIAL IV SCH (08:56)
--- NOTE | 2021-12-09 09:32 | Progress Note - Cardiology ---
Cardiology SOAP Progress Note Subjective: Lying in bed States she feels SOB as before No c/o CP C/O gen discomfort Objective: I&O/Vital Signs 12/10/21 12/10/21 12/10/21 12/10/21 00:19 07:29 07:30 07:52 Temp 36.0 36.0 Pulse 93 80 Resp 18 20 B/P (MAP) 97/61 (73) 97/62 (74) Pulse Ox 97 96 94 O2 Delivery Nasal Cannula Nasal Cannula Nasal Cannula Room Air O2 Flow Rate 5.00 5.00 5.00 12/10/21 00:00 Intake Total 880 ml Output Total 850 ml Balance 30 ml Constitutional: other (somnolent, morbidly obese) Respiratory: No accessory muscle use, No respiratory distress; chest expansion is symmetric, chest is bilaterally symmetric, other (good air entry) Cardiovascular: irregularly irregular; No JVD; S1 and S2, systolic murmur Gastrointestional: No tender; soft; No guarding; audible bowel sounds Extremities: no lower extremity edema bilateral Neurologic/Psychiatric: grossly intact (moves all extremities) Skin: normal color, warm/dry Results/Procedures: Labs Laboratory Tests 12/10/21 07:36: White Blood Count 10.1, Red Blood Count 3.01L, Hemoglobin 7.3L, Hematocrit 26L, Mean Corpuscular Volume 87, Mean Corpuscular Hemoglobin 24L, Mean Corpuscular Hemoglobin Concent 28L, Red Cell Distribution Width 20.3H, Platelet Count 263, Mean Platelet Volume 10.2, Immature Granulocyte % (Auto) 1, Neutrophils (%) (Auto) 78H, Lymphocytes (%) (Auto) 11L, Monocytes (%) (Auto) 9, Eosinophils (%) (Auto) 1, Basophils (%) (Auto) 0, Neutrophils # (Auto) 7.8, Lymphocytes # (Auto) 1.1, Monocytes # (Auto) 0.9, Eosinophils # (Auto) 0.1, Basophils # (Auto) 0.0, Immature Granulocyte # (Auto) 0.1, Sodium Level 127L, Potassium Level 4.8, Chloride Level 82L, Carbon Dioxide Level 33H, Anion Gap 12, Blood Urea Nitrogen 29H, Creatinine 1.07, Estimat Glomerular Filtration Rate 56, BUN/Creatinine Ratio 27, Glucose Level 179H, Calcium Level 8.5, Corrected Calcium 9.4, Total Bilirubin 0.8, Aspartate Amino Transf (AST/SGOT) 9, Alanine Aminotransferase (ALT/SGPT) 11, Alkaline Phosphatase 67, Total Protein 6.5, Albumin 2.9L Microbiology 12/04/21 Urine Culture - Preliminary, Resulted Mixed Bacterial Chelly Klebsiella pneumoniae Escherichia coli Testing In Progress 12/03/21 MRSA Screen - Final, Complete MRSA not isolated A/P: Assessment: Shortness of breath, currently stable Diarrhea - managed by Dr Bowen Anemia of undetermined etiology - managed by Dr Bowen Chronic a-fib (per pt report) - reports taking OAC, but does not know which HTN - controlled DM 2 COPD H/O Iron deficiency anemia Plan: * Once a source of bleeding has been excluded or fully treated, we recommend resumption of oral anticoag. Dr Bowen to decide * Monitor labs HANANE ROTHMAN Dec 09, 2021 09:32
[2021-12-09] MEDS: SODIUM CHLORIDE 1 GM TABLET PO SCH ×2 (10:52→20:43)
[2021-12-09] MEDS: RT-ALBUTEROL HFA 8.5 GM INHALER IH SCH ×3 (11:08→18:29)
--- NOTE | 2021-12-09 11:14 | Progress Note - Cardiology ---
Cardiology SOAP Progress Note Subjective: Gen malaise and weakness No cp Shortness of breath with activity No palp or syncope No n/v Objective: I&O/Vital Signs 12/09/21 12/09/21 12/09/21 12/09/21 00:00 07:48 08:00 11:08 Temp 36.1 35.2 Pulse 90 94 Resp 20 21 B/P (MAP) 106/70 (82) 98/50 (66) Pulse Ox 100 98 95 O2 Delivery Nasal Cannula Nasal Cannula Nasal Cannula Nasal Cannula O2 Flow Rate 5.00 5.00 5.00 5.00 12/09/21 00:00 Intake Total 472 ml Output Total 800 ml Balance -328 ml Constitutional: other (somnolent, morbidly obese) Respiratory: No accessory muscle use, No respiratory distress; chest expansion is symmetric, chest is bilaterally symmetric, other (good air entry) Cardiovascular: irregularly irregular; No JVD; S1 and S2, systolic murmur Gastrointestional: No tender; soft; No guarding; audible bowel sounds Extremities: no lower extremity edema bilateral Neurologic/Psychiatric: grossly intact (moves all extremities) Skin: normal color, warm/dry Results/Procedures: Labs Laboratory Tests 12/09/21 05:41: White Blood Count 9.0, Red Blood Count 3.10L, Hemoglobin 7.5L, Hematocrit 27L, Mean Corpuscular Volume 87, Mean Corpuscular Hemoglobin 24L, Mean Corpuscular Hemoglobin Concent 28L, Red Cell Distribution Width 19.9H, Platelet Count 256, Mean Platelet Volume 10.2, Immature Granulocyte % (Auto) 1, Neutrophils (%) (Auto) 81H, Lymphocytes (%) (Auto) 9L, Monocytes (%) (Auto) 9, Eosinophils (%) (Auto) 0, Basophils (%) (Auto) 0, Neutrophils # (Auto) 7.3, Lymphocytes # (Auto) 0.8L, Monocytes # (Auto) 0.8, Eosinophils # (Auto) 0.0, Basophils # (Auto) 0.0, Immature Granulocyte # (Auto) 0.1, Prothrombin Time 13.7, INR Comment 1.0, Sodium Level 129L, Potassium Level 4.5, Chloride Level 81L, Carbon Dioxide Level 38H, Anion Gap 10, Blood Urea Nitrogen 31H, Creatinine 1.11, Estimat Glomerular Filtration Rate 53, BUN/Creatinine Ratio 28, Glucose Level 128H, Calcium Level 8.5, Corrected Calcium 9.3, Total Bilirubin 0.7, Aspartate Amino Transf (AST/SGOT) 11, Alanine Aminotransferase (ALT/SGPT) 9, Alkaline Phosphatase 69, Ammonia 23, Total Protein 6.5, Albumin 3.0L Microbiology 12/04/21 Urine Culture - Preliminary, Resulted Mixed Bacterial Chelly Klebsiella pneumoniae Escherichia coli Testing In Progress 12/03/21 MRSA Screen - Final, Complete MRSA not isolated Laboratory Tests 12/08/21 05:14 12/09/21 05:41 A/P: Assessment: Shortness of breath, currently stable Diarrhea - managed by Dr Bowen Anemia of undetermined etiology - managed by Dr Bowen Chronic a-fib (per pt report) - reports taking OAC, but does not know which HTN - controlled DM 2 COPD H/O Iron deficiency anemia Plan: * Once a source of bleeding has been excluded or fully treated, we recommend resumption of oral anticoag. Dr Bowen to decide * Monitor labs WILMER DUNHAM MD FACP FAC CCDS Dec 09, 2021 11:14
--- NOTE | 2021-12-09 12:19 | Progress Note ---
LAUREN CHURCHILL 12/09/21 1219: Subjective Date Seen by a Provider: Dec 09, 2021 Time Seen by a Provider: 10:45 Subjective/Events-last exam Colette is a 71yo F with a history of chronic respiratory failure, COPD, morbid obesity, chronic non healing pannus wound, and Atrial fibrillation. She came to the ER on 12/03/21 with shortness of breath and hypoxia. She was hospitalized and a CT on 12/05/21 showed ventral abdominal hernias with regional cellulitis. Patient and her family are refusing to do surgery for her hernias. Patient is adamant about wanting to return home even though her strength has declined since being admitted. Objective Exam Last Set of Vital Signs Vital Signs Date Time Temp Pulse Resp B/P (MAP) Pulse Ox O2 Delivery O2 Flow Rate FiO2 12/09/21 11:08 95 Nasal Cannula 5.00 12/09/21 08:00 35.2 94 21 98/50 (66) 12/04/21 00:04 40 Capillary Refill : I&O Intake and Output 12/09/21 00:00 Intake Total 572 ml Output Total 1100 ml Balance -528 ml Intake Oral 572 ml Output Urine Total 1100 ml # Bowel Movements 1 General: Oriented X3, Cooperative, Mild Distress (Patient was emotional with the interview and upset that she has not been discharged yet) HEENT: Atraumatic, EOMI Neck: Supple Lungs: Clear to Auscultation, Normal Air Movement Heart: Regular Rate Abdomen: Normal Bowel Sounds Extremities: No Clubbing, No Edema Neuro: Other (Reduced strength, patient was barely able to roll onto her side for provider to listen to lung sounds posteriorly) Results Lab Laboratory Tests 12/09/21 05:41: White Blood Count 9.0, Red Blood Count 3.10L, Hemoglobin 7.5L, Hematocrit 27L, Mean Corpuscular Volume 87, Mean Corpuscular Hemoglobin 24L, Mean Corpuscular Hemoglobin Concent 28L, Red Cell Distribution Width 19.9H, Platelet Count 256, Mean Platelet Volume 10.2, Immature Granulocyte % (Auto) 1, Neutrophils (%) (Auto) 81H, Lymphocytes (%) (Auto) 9L, Monocytes (%) (Auto) 9, Eosinophils (%) (Auto) 0, Basophils (%) (Auto) 0, Neutrophils # (Auto) 7.3, Lymphocytes # (Auto) 0.8L, Monocytes # (Auto) 0.8, Eosinophils # (Auto) 0.0, Basophils # (Auto) 0.0, Immature Granulocyte # (Auto) 0.1, Prothrombin Time 13.7, INR Comment 1.0, Sodium Level 129L, Potassium Level 4.5, Chloride Level 81L, Carbon Dioxide Level 38H, Anion Gap 10, Blood Urea Nitrogen 31H, Creatinine 1.11, Estimat Glomerular Filtration Rate 53, BUN/Creatinine Ratio 28, Glucose Level 128H, Calcium Level 8.5, Corrected Calcium 9.3, Total Bilirubin 0.7, Aspartate Amino Transf (AST/SGOT) 11, Alanine Aminotransferase (ALT/SGPT) 9, Alkaline Phosphatase 69, Ammonia 23, Total Protein 6.5, Albumin 3.0L Microbiology 12/04/21 Urine Culture - Preliminary, Resulted Mixed Bacterial Chelly Klebsiella pneumoniae Escherichia coli Testing In Progress 12/03/21 MRSA Screen - Final, Complete MRSA not isolated Assessment/Plan Assessment/Plan Assess & Plan/Chief Complaint 1) Anemia Hgb at 7.5 today Will need another RBC transfusion if Hgb drops below 7.0 Had an EGD and colonoscopy done which did not find any areas of bleeding 2) COPD exacerbation Condition stable. Patient on nasal canula 5 L of O2. 3)Ventral hernia Wound care is continuing to redress the wound Patient and her family refusing to have surgery done to repair the hernia Will be discussing palliative care with family as well as placement in a penitentiary 4) Atrial fibrillation Condition stable Home medication of Amiodarone restarted Apixaban withheld due to concern for GI bleed 5)Debility Patient has mcneill catheter placed due to debility Sates that she is usually in a wheel chair Patient is too weak and not willing to work with physical therapy Diagnosis/Problems Diagnosis/Problems (1) COPD exacerbation Status: Acute (2) Anemia (3) Ventral hernia Clinical Quality Measures DVT/VTE Risk/Contraindication: Contraindications-Pharm: Other *list below* Other: severe anemia JIA CLARK DO 12/10/21 0525: Subjective Subjective/Events-last exam Pt appears to be very end-stage I talked with the family on the phone and they would like to bring her home and I did recommend hospice. cab worker was notified and will give them some education on that. Updated Dr. Farris, her PCP Hemoglobin was 7.5 Review of Systems General: Fatigue, Malaise Objective Exam General: Other (Confused) Lungs: Clear to Auscultation Heart: Regular Rate Psych/Mental Status: Mental Status NL, Mood NL Assessment/Plan Assessment/Plan Assess & Plan/Chief Complaint Hospice at discharge Supervisory-Addendum Brief Verification & Attestation Participated in pt care: history, MDM, physical Personally performed: exam, history, MDM, supervision of care Care discussed with: Medical Student Procedures: n/a Results interpretation: Verified all documentation Verification and Attestation of Medical Student E/M Service A medical student performed and documented this service in my presence. I reviewed and verified all information documented by the medical student and made modifications to such information, when appropriate. I personally performed the physical exam and medical decision making. Jia Clark, Dec 10, 2021,05:24 LAUREN CHURCHILL Dec 09, 2021 12:19 JIA CLARK DO Dec 10, 2021 05:25
[2021-12-09 16:00] VITALS: BP 111/52
[2021-12-09] MEDS: MELATONIN 3 MG TABLET PO PRN (20:28)
[2021-12-09] MEDS: ACETAMINOPHEN 500 MG TAB (TYLENOL) PO SCH (20:29)
[2021-12-10 00:19] VITALS: BP 97/61
[2021-12-10] MEDS: ALPRAZolam 0.25 MG (XANAX) TAB PO PRN ×4 (02:49→21:10)
[2021-12-10] MEDS: HYDROcodone/APAP 5 MG/325 MG (LORTAB) TAB PO PRN ×2 (02:49→14:57)
--- NOTE | 2021-12-10 07:02 | Progress Note - Surgery ---
MYRNA SALMON 12/10/21 0702: Subjective Date Seen by a Provider: Dec 10, 2021 Time Seen by a Provider: 06:50 Subjective/Events-last exam Pt had trouble staying awake to answer questions this morning. Stated she felt "a little better." Denied fever, pain, and CP. Would not respond to further questioning. Pt and her family agreed to [facility] for hospice or C yesterday. Review of Systems General: Fatigue, Malaise Pulmonary: Dyspnea, Cough Cardiovascular: No: Chest Pain, Palpitations Gastrointestinal: No: Nausea, Abdominal Pain Genitourinary: No Dysuria, No Frequency Musculoskeletal: No: neck pain, leg pain Neurological: Weakness; No: Change in speech Focused Exam Respiratory: Lungs Clear, No Accessory Muscle Use, No Respiratory Distress Cardiovascular: Systolic Murmur, Irregularly Irregular Peripheral Pulses: 3+ Radial Pulses (R), 3+ Radial Pulses (L) Skin: ulcerations (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) Objective Exam Vital Signs Date Time Temp Pulse Resp B/P (MAP) Pulse Ox O2 Delivery O2 Flow Rate FiO2 12/10/21 00:19 36.0 93 18 97/61 (73) 97 Nasal Cannula 5.00 12/09/21 20:45 Nasal Cannula 5.00 12/09/21 18:29 94 Nasal Cannula 5.00 12/09/21 16:00 36.0 105 18 111/52 (71) 94 Nasal Cannula 5.00 12/09/21 14:56 95 Nasal Cannula 5.00 12/09/21 11:08 95 Nasal Cannula 5.00 12/09/21 08:00 35.2 94 21 98/50 (66) 98 Nasal Cannula 5.00 12/09/21 07:48 Nasal Cannula 5.00 I & O 12/10/21 07:00 Intake Total 1080 ml Output Total 1125 ml Balance -45 ml Capillary Refill : General Appearance: No Apparent Distress, Obese HEENT: PERRL/EOMI Neck: Normal Inspection (said it was sore), Supple Respiratory: Lungs Clear, No Respiratory Distress Cardiovascular: Systolic Murmur, Irregularly Irregular Peripheral Pulses: 3+ Radial Pulses (R), 3+ Radial Pulses (L) Gastrointestinal: non tender, soft, other (Succus appearing output from fistula (freshly changed dressing), abdominal hernias) Extremity: Non Tender, Pedal Edema Neurologic/Psychiatric: Depressed Affect, Other (fell asleep frequently) Skin: Warm/Dry, Other (chronic skin changes abdomen with fistula; draining; freshly changed dressing) Lymphatic: No Adenopathy Results Lab Microbiology 12/04/21 Urine Culture - Preliminary, Resulted Mixed Bacterial Chelly Klebsiella pneumoniae Escherichia coli Testing In Progress 12/03/21 MRSA Screen - Final, Complete MRSA not isolated Assessment/Plan Assessment/Plan Assessment/Plan Severe symptomatic anemia status post transfusions GI bleed suspected Morbid obesity Atrial fibrillation Anticoagulation on hold duet to anemia 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 She is difficult to arouse. Not wanting to answer questions. Patient family is working with palliative care on home health services or hospice care awaiting determination. Objective Exam General Appearance: No Apparent Distress, Obese HEENT: Normal ENT Inspection Neck: Normal Inspection (said it was sore), Supple Respiratory: Chest Non Tender, No Accessory Muscle Use, No Respiratory Distress Cardiovascular: No JVD, Irregularly Irregular Gastrointestinal: non tender, soft, other (Succus appearing output from fistula (freshly changed dressing), abdominal hernias) Extremity: Non Tender, Pedal Edema Neurologic/Psychiatric: Depressed Affect, Other (fell asleep frequently) Skin: Other (chronic skin changes abdomen with fistula) Lymphatic: No Adenopathy Assessment/Plan Assessment/Plan Assessment/Plan Severe symptomatic anemia status post transfusions GI bleed suspected Morbid obesity Atrial fibrillation Anticoagulation on hold duet to anemia 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 Discussing Hospice care with [facility] Will sign off, call if needed. Supervisory-Addendum Brief Verification & Attestation Participated in pt care: history, MDM, physical Personally performed: exam, history, MDM, supervision of care Care discussed with: Medical Student Procedures: n/a Results interpretation: Verified all documentation Verification and Attestation of Medical Student E/M Service A medical student performed and documented this service in my presence. I reviewed and verified all information documented by the medical student and made modifications to such information, when appropriate. I personally performed the physical exam and medical decision making. Leticia Haddad, Dec 10, 2021,21:11 MYRNA SALMON Dec 10, 2021 07:02 LETICIA HADDAD DO Dec 10, 2021 21:11
[2021-12-10] MEDS: RT-ALBUTEROL HFA 8.5 GM INHALER IH SCH ×3 (07:29→19:10)
[2021-12-10 07:44] LABS: BASOPHILS % (AUTO) 0 % (0-10); EOSINOPHILS # (AUTO) 0.1 10^3/uL (0.0-0.3); EOSINOPHILS % (AUTO) 1 % (0-10); HEMATOCRIT 26 % (35-52); HEMOGLOBIN 7.3 g/dL (11.5-16.0); LYMPHOCYTES # (AUTO) 1.1 10^3/uL (1.0-4.0); LYMPHOCYTES % (AUTO) 11 % (12-44); MEAN CORPUSCULAR HEMOGLOBIN 24 pg (25-34); MEAN CORPUSCULAR HGB CONC 28 g/dL (32-36); MEAN CORPUSCULAR VOLUME 87 fL (80-99); MEAN PLATELET VOLUME 10.2 fL (9.0-12.2); MONOCYTES # (AUTO) 0.9 10^3/uL (0.0-1.0); MONOCYTES % (AUTO) 9 % (0-12); NEUTROPHILS # (AUTO) 7.8 10^3/uL (1.8-7.8); NEUTROPHILS % (AUTO) 78 % (42-75); PLATELET COUNT 263 10^3/uL (130-400); WHITE BLOOD COUNT 10.1 10^3/uL (4.3-11.0)
[2021-12-10 07:52] VITALS: BP 97/62
[2021-12-10 08:10] LABS: ALBUMIN 2.9 GM/DL (3.2-4.5); BILIRUBIN,TOTAL 0.8 MG/DL (0.1-1.0); CALCIUM 8.5 MG/DL (8.5-10.1); CREATININE SERUM 1.07 MG/DL (0.60-1.30); POTASSIUM 4.8 MMOL/L (3.6-5.0); TOTAL PROTEIN 6.5 GM/DL (6.4-8.2)
[2021-12-10] MEDS: AMIODARONE 200 MG (CORDARONE) TAB PO SCH (09:13)
[2021-12-10] MEDS: GABAPENTIN 300 MG (NEURONTIN) CAP PO SCH ×2 (09:13→20:04)
[2021-12-10] MEDS: SODIUM CHLORIDE 1 GM TABLET PO SCH ×2 (09:14→20:05)
[2021-12-10] MEDS: PANTOPRAZOLE 40 MG (PROTONIX) TAB PO SCH (09:14)
[2021-12-10] MEDS: DOCUSATE SODIUM 100 MG (COLACE) CAP PO SCH ×2 (09:47→20:08)
--- NOTE | 2021-12-10 09:48 | Progress Note - Cardiology ---
Cardiology SOAP Progress Note Subjective: In bed Confused this morning. States she is in [place]. Re-oriented C/O hurting all over Objective: I&O/Vital Signs 12/10/21 12/10/21 12/10/21 12/10/21 07:29 07:30 07:52 11:30 Temp 36.0 Pulse 80 Resp 20 B/P (MAP) 97/62 (74) Pulse Ox 96 94 95 O2 Delivery Nasal Cannula Nasal Cannula Room Air Nasal Cannula O2 Flow Rate 5.00 5.00 5.00 12/10/21 14:31 Pulse Ox 95 O2 Delivery Non Rebreather O2 Flow Rate 10.00 12/10/21 00:00 Intake Total 880 ml Output Total 850 ml Balance 30 ml Constitutional: other (somnolent, morbidly obese) Respiratory: No accessory muscle use, No respiratory distress; chest expansion is symmetric, chest is bilaterally symmetric, other (good air entry) Cardiovascular: irregularly irregular; No JVD; S1 and S2, systolic murmur Gastrointestional: No tender; soft; No guarding; audible bowel sounds Extremities: no lower extremity edema bilateral Neurologic/Psychiatric: grossly intact (moves all extremities) Skin: ulcerations (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) Results/Procedures: Labs Laboratory Tests 12/10/21 07:36: White Blood Count 10.1, Red Blood Count 3.01L, Hemoglobin 7.3L, Hematocrit 26L, Mean Corpuscular Volume 87, Mean Corpuscular Hemoglobin 24L, Mean Corpuscular He moglobin Concent 28L, Red Cell Distribution Width 20.3H, Platelet Count 263, Mean Platelet Volume 10.2, Immature Granulocyte % (Auto) 1, Neutrophils (%) (Auto) 78H, Lymphocytes (%) (Auto) 11L, Monocytes (%) (Auto) 9, Eosinophils (%) (Auto) 1, Basophils (%) (Auto) 0, Neutrophils # (Auto) 7.8, Lymphocytes # (Auto) 1.1, Monocytes # (Auto) 0.9, Eosinophils # (Auto) 0.1, Basophils # (Auto) 0.0, Immature Granulocyte # (Auto) 0.1, Sodium Level 127L, Potassium Level 4.8, Chloride Level 82L, Carbon Dioxide Level 33H, Anion Gap 12, Blood Urea Nitrogen 29H, Creatinine 1.07, Estimat Glomerular Filtration Rate 56, BUN/Creatinine Ratio 27, Glucose Level 179H, Calcium Level 8.5, Corrected Calcium 9.4, Total Bilirubin 0.8, Aspartate Amino Transf (AST/SGOT) 9, Alanine Aminotransferase (ALT/SGPT) 11, Alkaline Phosphatase 67, Total Protein 6.5, Albumin 2.9L Microbiology 12/04/21 Urine Culture - Preliminary, Resulted Klebsiella pneumoniae Escherichia coli Testing In Progress 12/03/21 MRSA Screen - Final, Complete MRSA not isolated A/P: Assessment: Shortness of breath, currently stable Diarrhea - managed by Dr Bowen Anemia of undetermined etiology - managed by Dr Bowen Chronic a-fib (per pt report) - reports taking OAC, but does not know which HTN - controlled DM 2 COPD H/O Iron deficiency anemia Plan: * Once a source of bleeding has been excluded or fully treated, we recommend resumption of oral anticoag. Dr Bowen to decide * Monitor labs * Family deciding on HH vs Hospice today HANANE ROTHMAN Dec 10, 2021 09:48
[2021-12-10] MEDS ORDERED: ALPR.25T PO (10:37)
[2021-12-10] MEDS ORDERED: ACHD5005 PO (10:37)
[2021-12-10] MEDS ORDERED: PANT40TA52 PO (10:37)
--- NOTE | 2021-12-10 10:39 | D/C HH Face to Face Order ---
D/C HH Face to Face Orders Reconcile Patient Problems Problems Reviewed?: Yes Instructions for Patient HH Patient Instructions/FollowUp: Dr Farris 1 week Physician to follow Patient: [place] Discharge Diet for Home: No Restrictions Patient Problems: GIB Debility Patient Data-Allergies,Ht & Wt Patient Allergies: Coded Allergies: No Known Drug Allergies (Unverified , 12/03/21) Home Health Need/Face to Face Date of Face to Face: Dec 10, 2021 Clinical Findings: Generalized weakness and fatigue, Muscle weakness I have seen Pt [id number]: Yes Discharged To: Home Diagnosis/Conditions: GIB Patient is Homebound due to: Muscle weakness, Shortness of breath/distress Homebound Status Due to the above stated illness, injury or surgical procedure (medical condition or diagnosis) and associated clinical findings, the patient is homebound because of his/her inability to leave home except with aid of a supportive device and/or person AND leaving the home requires a considerable and taxing effort or is medically contraindicated. Pt req the following assistanc: Wheelchair Home Health Nursing Orders Home Health Services Order: Nursing Services, [employer]-Evaluate & Treat, Physical Therapy-Evaluate & Treat Home Health Infusion Therapy Line Start Date: Dec 04, 2021 Certify Stmt I certify that this patient is under my care and that I, a nurse practitioner or a physician; a engineering assistant working with me, had a face to face encounter that - meets the physician face to face encounter requirements with this patient as dated. HARSHA CLARK DO Dec 10, 2021 10:39
--- NOTE | 2021-12-10 10:40 | Discharge Summary ---
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 Haddad Supportive care Needs DNR Needs chcf placement 12/07/21: Transfuse Needs SDP Hospice candidate in my opinion 12/08/2021: Transfuse as necessary Fluid restriction Patient appears to be end-stage liver disease from Carter Discharge Summary Discharge Physical Examination Allergies: Coded Allergies: No Known Drug Allergies (Unverified , 12/03/21) Vitals & I&Os Vital Signs Date Time Temp Pulse Resp B/P (MAP) Pulse Ox O2 Delivery O2 Flow Rate FiO2 12/11/21 00:17 36.6 85 18 110/53 (72) 100 Non Rebreather 10.00 General Appearance: Other (Lethargic) Hospital Course Was the Problem List Reviewed?: Yes 1) Anemia Hgb at 7.3 today Had an EGD and colonoscopy done which did not find any areas of bleeding Needs to be referred for small bowel capsule study but the patient is not interested in doing that currently 2) COPD exacerbation Condition stable. Patient on nasal canula 5 L of O2 which is what she came to the ER on At home the patient is on 3 L of O2 3)Ventral hernia Wound care is continuing to redress the wound Patient and her family refusing to have surgery done to repair the hernia Patient does not qualify for snf care placement Will be referred for at home care once discharged Patient continuing to take hydrocodone for pain 4) Atrial fibrillation EKG from 12/09/21 showed atrial fibrillation Home medication of Amiodarone restarted Apixaban withheld due to concern for GI bleed 5)Debility Patient has mcneill catheter placed due to debility Sates that she is usually in a wheel chair Patient is too weak and not willing to work with physical therapy Will need to have at home care to help her 6)Anxiety Patient started on Alprazolam for her anxiety about being at the hospital Hospital course: Colette is a 71yo F with a history of chronic respiratory failure, COPD, morbid obesity, chronic non healing pannus wound, and atrial fibrillation. She came to the ER on 12/03/21 with shortness of breath and hypoxia. She was hospitalized for anemia and exacerbation of COPD. She had 3 transfusions while in the hospital and her hemoglobin is 7.3 upon discharge. She was assessed with an EGD and colonoscopy and no GI bleeds were found. It was recommended that she be referred for a small bowel capsule study but the patient and her family were not interested in a referral at this time. Patient should not take Apixaban until her anemia resolves. Patient is being discharged on 5 L of oxygen with O2 saturations in the low 90% range. At home she is normally on 3L of oxygen. A CT on 12/05/21 showed ventral abdominal hernias with regional cellulitis. Patient and her family are refusing to do surgery for her hernias. Patient is adamant about wanting to return home even though her strength has declined since being admitted. Patient has refused physical therapy. Palliative care was discussed wi protective services social worker and family. Patient does not qualify for a snf facility. She is being referred for at home care and will need medical transport to leave the hospital. She will be returning to her sons home where she lived before being admitted to the hospital. Labs (last 24 hrs) Laboratory Tests 12/03/21 19:25: White Blood Count 11.3H, Red Blood Count 2.68L, Hemoglobin 6.0*L, Hematocrit 22L , Mean Corpuscular Volume 84, Mean Corpuscular Hemoglobin 22L, Mean Corpuscular Hemoglobin Concent 27L, Red Cell Distribution Width 21.6H, Platelet Count 293, Mean Platelet Volume 11.0, Immature Granulocyte % (Auto) 1, Neutrophils (%) (Auto) 88H, Lymphocytes (%) (Auto) 6L, Monocytes (%) (Auto) 5, Eosinophils (%) (Auto) 0, Basophils (%) (Auto) 0, Neutrophils # (Auto) 9.9H, Lymphocytes # (Auto) 0.7L, Monocytes # (Auto) 0.5, Eosinophils # (Auto) 0.1, Basophils # (Auto) 0.0, Immature Granulocyte # (Auto) 0.1, Neutrophils % (Manual) 85, Lymphocytes % (Manual) 5, Monocytes % (Manual) 5, Metamyelocytes % 1, Band Neutrophils 4, Nucleated Red Blood Cells 1, Platelet Estimate NORMAL, Polychromasia MODERATE, Hypochromasia MARKED, Poikilocytosis MODERATE, Anisocytosis MODERATE, Target Cells SLIGHT, Tear Drop Cells SLIGHT, Elliptocytes SLIGHT, Blood Morphology Comment ABNORMAL, Sodium Level 134L, Potassium Level 4.6, Chloride Level 88L, Carbon Dioxide Level 35H, Anion Gap 11, Blood Urea Nitrogen 28H, Creatinine 0.84, Estimat Glomerular Filtration Rate 75, BUN/Creatinine Ratio 33, Glucose Level 229H, Calcium Level 8.8, Corrected Calcium 9.6, Total Bilirubin 0.4, Aspartate Amino Transf (AST/SGOT) 12, Alanine Aminotransferase (ALT/SGPT) 8, Alkaline Phosphatase 83, Troponin I < 0.30, Pro-B-Type Natriuretic Peptide 6543.0H, Total Protein 7.5, Albumin 3.0L 12/03/21 23:13: White Blood Count 11.2H, Red Blood Count 2.55L, Hemoglobin 5.7*L, Hematocrit 22L , Mean Corpuscular Volume 85, Mean Corpuscular Hemoglobin 22L, Mean Corpuscular Hemoglobin Concent 26L, Red Cell Distribution Width 21.2H, Platelet Count 279, Mean Platelet Volume 10.4, Immature Granulocyte % (Auto) 1, Neutrophils (%) (Auto) 87H, Lymphocytes (%) (Auto) 6L, Monocytes (%) (Auto) 5, Eosinophils (%) (Auto) 0, Basophils (%) (Auto) 0, Neutrophils # (Auto) 9.8H, Lymphocytes # (Auto) 0.7L, Monocytes # (Auto) 0.5, Eosinophils # (Auto) 0.0, Basophils # (Auto) 0.0, Immature Granulocyte # (Auto) 0.1 12/03/21 23:33: Coronavirus (COVID-19)(PCR) Negative, Influenza Type A Antigen NEGATIVE, Inf luenza Type B Antigen NEGATIVE, SARS-CoV-2 RNA (RT-PCR) Not Detected 12/04/21 06:03: White Blood Count 10.2, Red Blood Count 2.72L, Hemoglobin 6.2*L, Hematocrit 23L, Mean Corpuscular Volume 85, Mean Corpuscular Hemoglobin 23L, Mean Corpuscular Hemoglobin Concent 27L, Red Cell Distribution Width 20.6H, Platelet Count 279, Mean Platelet Volume 10.7, Immature Granulocyte % (Auto) 2, Neutrophils (%) (Auto) 82H, Lymphocytes (%) (Auto) 9L, Monocytes (%) (Auto) 7, Eosinophils (%) (Auto) 0, Basophils (%) (Auto) 0, Neutrophils # (Auto) 8.4H, Lymphocytes # (Auto) 0.9L, Monocytes # (Auto) 0.7, Eosinophils # (Auto) 0.0, Basophils # (Auto) 0.0, Immature Granulocyte # (Auto) 0.2H, Sodium Level 132L, Potassium Level 4.9, Chloride Level 87L, Carbon Dioxide Level 35H, Anion Gap 10, Blood Urea Nitrogen 32H, Creatinine 0.98, Estimat Glomerular Filtration Rate 62, BUN/Creatinine Ratio 33, Glucose Level 190H, Calcium Level 8.5, Corrected Calcium 9.3, Total Bilirubin 0.6, Aspartate Amino Transf (AST/SGOT) 14, Alanine Aminotransferase (ALT/SGPT) 11, Alkaline Phosphatase 65, Total Protein 6.8, Albumin 3.0L 12/04/21 06:14: B-Type Natriuretic Peptide 672.6H 12/04/21 06:18: Urine Color YELLOW, Urine Clarity CLEAR, Urine pH 5.5, Urine Specific [place] 1.025H, Urine Protein TRACEH, Urine Glucose (UA) NEGATIVE, Urine Ketones NEGATIVE, Urine Nitrite NEGATIVE, Urine Bilirubin NEGATIVE, Urine Urobilinogen 0.2, Urine Leukocyte Esterase 2+H, Urine RBC (Auto) 2+H, Urine RBC 0-2, Urine WBC 50-100H, Urine Squamous Epithelial Cells 0-2, Urine Crystals NONE, Urine Bacteria MODERATEH, Urine Casts NONE, Urine Mucus NEGATIVE, Urine Culture Indicated YES 12/04/21 11:35: Glucometer 140H 12/05/21 09:10: White Blood Count 10.6, Red Blood Count 2.85L, Hemoglobin 6.8*L, Hematocrit 24L, Mean Corpuscular Volume 85, Mean Corpuscular Hemoglobin 24L, Mean Corpuscular Hemoglobin Concent 28L, Red Cell Distribution Width 19.5H, Platelet Count 258, Mean Platelet Volume 10.1, Immature Granulocyte % (Auto) 2, Neutrophils (%) (Auto) 81H, Lymphocytes (%) (Auto) 8L, Monocytes (%) (Auto) 9, Eosinophils (%) (Auto) 1, Basophils (%) (Auto) 0, Neutrophils # (Auto) 8.5H, Lymphocytes # (Auto) 0.8L, Monocytes # (Auto) 0.9, Eosinophils # (Auto) 0.1, Basophils # (Auto) 0.0, Immature Granulocyte # (Auto) 0.2H, Sodium Level 133L, Potassium Level 4.5, Chloride Level 88L, Carbon Dioxide Level 36H, Anion Gap 9, Blood Urea Nitrogen 28H, Creatinine 0.92, Estimat Glomerular Filtration Rate 67, BUN/Creatinine Ratio 30, Glucose Level 154H, Calcium Level 8.5, Corrected Calcium 9.3, Total Bilirubin 0.6, Aspartate Amino Transf (AST/SGOT) 10, Alanine Aminotransferase (ALT/SGPT) 10, Alkaline Phosphatase 69, Total Protein 6.6, Albumin 3.0L 12/05/21 20:30: Glucometer 179H 12/06/21 05:28: White Blood Count 11.4H, Red Blood Count 3.00L, Hemoglobin 7.0L, Hematocrit 26L, Mean Corpuscular Volume 87, Mean Corpuscular Hemoglobin 23L, Mean Corpuscular Hemoglobin Concent 27L, Red Cell Distribution Width 19.5H, Platelet Count 260, Mean Platelet Volume 10.3, Immature Granulocyte % (Auto) 3, Neutrophils (%) (Auto) 71, Lymphocytes (%) (Auto) 9L, Monocytes (%) (Auto) 16H, Eosinophils (%) (Auto) 0, Basophils (%) (Auto) 0, Neutrophils # (Auto) 8.1H, Lymphocytes # (Auto) 1.0, Monocytes # (Auto) 1.8H, Eosinophils # (Auto) 0.0, Basophils # (Auto) 0.0, Immature Granulocyte # (Auto) 0.3H, Sodium Level 132L, Potassium Level 4.1, Chloride Level 84L, Carbon Dioxide Level 36H, Anion Gap 12, Blood Urea Nitrogen 25H, Creatinine 0.91, Estimat Glomerular Filtration Rate 68, BUN/Creatinine Ratio 27, Glucose Level 155H, Calcium Level 8.6, Corrected Calcium 9.3, Total Bilirubin 0.4, Aspartate Amino Transf (AST/SGOT) 11, Alanine Aminotransferase (ALT/SGPT) 13, Alkaline Phosphatase 74, Total Protein 6.8, Albumin 3.1L 12/06/21 14:01: Lab Scanned Report Transfusion Reaction Form 12/07/21 05:34: White Blood Count 8.6, Red Blood Count 2.70L, Hemoglobin 6.4*L, Hematocrit 23L, Mean Corpuscular Volume 86, Mean Corpuscular Hemoglobin 24L, Mean Corpuscular Hemoglobin Concent 28L, Red Cell Distribution Width 19.7H, Platelet Count 263, Mean Platelet Volume 10.5, Immature Granulocyte % (Auto) 2, Neutrophils (%) (Auto) 80H, Lymphocytes (%) (Auto) 9L, Monocytes (%) (Auto) 9, Eosinophils (%) (Auto) 0, Basophils (%) (Auto) 0, Neutrophils # (Auto) 6.9, Lymphocytes # (Auto) 0.7L, Monocytes # (Auto) 0.8, Eosinophils # (Auto) 0.0, Basophils # (Auto) 0.0, Immature Granulocyte # (Auto) 0.2H, Sodium Level 127L, Potassium Level 4.5, Chloride Level 81L, Carbon Dioxide Level 36H, Anion Gap 10, Blood Urea Nitrogen 29H, Creatinine 1.05, Estimat Glomerular Filtration Rate 57, BUN/Creatinine Ratio 28, Glucose Level 158H, Calcium Level 8.5, Corrected Calcium 9.4, Total Bilirubin 0.4, Aspartate Amino Transf (AST/SGOT) 11, Alanine Aminotransferase (ALT/SGPT) 12, Alkaline Phosphatase 64, Total Protein 6.4, Albumin 2.9L 12/08/21 05:14: White Blood Count 9.4, Red Blood Count 3.08L, Hemoglobin 7.5L, Hematocrit 27L, Mean Corpuscular Volume 87, Mean Corpuscular Hemoglobin 24L, Mean Corpuscular Hemoglobin Concent 28L, Red Cell Distribution Width 19.5H, Platelet Count 254, Mean Platelet Volume 10.4, Immature Granulocyte % (Auto) 2, Neutrophils (%) (Auto) 80H, Lymphocytes (%) (Auto) 9L, Monocytes (%) (Auto) 10, Eosinophils (%) (Auto) 0, Basophils (%) (Auto) 0, Neutrophils # (Auto) 7.5, Lymphocytes # (Auto) 0.8L, Monocytes # (Auto) 0.9, Eosinophils # (Auto) 0.0, Basophils # (Auto) 0.0, Immature Granulocyte # (Auto) 0.1, Sodium Level 125*L, Potassium Level 4.5, Chloride Level 80L, Carbon Dioxide Level 36H, Anion Gap 9, Blood Urea Nitrogen 31H, Creatinine 1.16, Estimat Glomerular Filtration Rate 51, BUN/Creatinine Ratio 27, Glucose Level 137H, Calcium Level 8.6, Corrected Calcium 9.4, Total Bilirubin 0.6, Aspartate Amino Transf (AST/SGOT) 10, Alanine Aminotransferase (ALT/SGPT) 13, Alkaline Phosphatase 64, Total Protein 6.6, Albumin 3.0L 12/09/21 05:41: White Blood Count 9.0, Red Blood Count 3.10L, Hemoglobin 7.5L, Hematocrit 27L, Mean Corpuscular Volume 87, Mean Corpuscular Hemoglobin 24L, Mean Corpuscular Hemoglobin Concent 28L, Red Cell Distribution Width 19.9H, Platelet Count 256, Mean Platelet Volume 10.2, Immature Granulocyte % (Auto) 1, Neutrophils (%) (Auto) 81H, Lymphocytes (%) (Auto) 9L, Monocytes (%) (Auto) 9, Eosinophils (%) (Auto) 0, Basophils (%) (Auto) 0, Neutrophils # (Auto) 7.3, Lymphocytes # (Auto) 0.8L, Monocytes # (Auto) 0.8, Eosinophils # (Auto) 0.0, Basophils # (Auto) 0.0, Immature Granulocyte # (Auto) 0.1, Sodium Level 129L, Potassium Level 4.5, Chloride Level 81L, Carbon Dioxide Level 38H, Anion Gap 10, Blood Urea Nitrogen 31H, Creatinine 1.11, Estimat Glomerular Filtration Rate 53, BUN/Creatinine Ratio 28, Glucose Level 128H, Calcium Level 8.5, Corrected Calcium 9.3, Total Bilirubin 0.7, Aspartate Amino Transf (AST/SGOT) 11, Alanine Aminotransferase (ALT/SGPT) 9, Alkaline Phosphatase 69, Total Protein 6.5, Albumin 3.0L, Prothrombin Time 13.7, INR Comment 1.0, Gamma Glutamyl Transpeptidase 16, Ammonia 23 12/10/21 07:36: White Blood Count 10.1, Red Blood Count 3.01L, Hemoglobin 7.3L, Hematocrit 26L, Mean Corpuscular Volume 87, Mean Corpuscular Hemoglobin 24L, Mean Corpuscular Hemoglobin Concent 28L, Red Cell Distribution Width 20.3H, Platelet Count 263, Mean Platelet Volume 10.2, Immature Granulocyte % (Auto) 1, Neutrophils (%) (Auto) 78H, Lymphocytes (%) (Auto) 11L, Monocytes (%) (Auto) 9, Eosinophils (%) (Auto) 1, Basophils (%) (Auto) 0, Neutrophils # (Auto) 7.8, Lymphocytes # (Auto) 1.1, Monocytes # (Auto) 0.9, Eosinophils # (Auto) 0.1, Basophils # (Auto) 0.0, Immature Granulocyte # (Auto) 0.1, Sodium Level 127L, Potassium Level 4.8, Chloride Level 82L, Carbon Dioxide Level 33H, Anion Gap 12, Blood Urea Nitrogen 29H, Creatinine 1.07, Estimat Glomerular Filtration Rate 56, BUN/Creatinine Ratio 27, Glucose Level 179H, Calcium Level 8.5, Corrected Calcium 9.4, Total Bilirubin 0.8, Aspartate Amino Transf (AST/SGOT) 9, Alanine Aminotransferase (ALT/SGPT) 11, Alkaline Phosphatase 67, Total Protein 6.5, Albumin 2.9L Microbiology 12/04/21 Urine Culture - Preliminary, Resulted Klebsiella pneumoniae Escherichia coli Testing In Progress 12/03/21 MRSA Screen - Final, Complete MRSA not isolated Pending Labs Microbiology Date/Time Source Procedure Growth Status 12/04/21 06:50 Urine U Cath,Nos Urine Culture - Preliminary Klebsiella pneumoniae Escherichia coli Testing In Progress Resulted 12/03/21 22:50 Nasal MRSA Screen - Final MRSA not isolated Complete Laboratory Tests 12/03/21 19:25: White Blood Count 11.3, Red Blood Count 2.68, Hemoglobin 6.0, Hematocrit 22, Mean Corpuscular Volume 84, Mean Corpuscular Hemoglobin 22, Mean Corpuscular Hemoglobin Concent 27, Red Cell Distribution Width 21.6, Platelet Count 293, Mean Platelet Volume 11.0, Immature Granulocyte % (Auto) 1, Neutrophils (%) (Auto) 88, Lymphocytes (%) (Auto) 6, Monocytes (%) (Auto) 5, Eosinophils (%) (Auto) 0, Basophils (%) (Auto) 0, Neutrophils # (Auto) 9.9, Lymphocytes # (Auto) 0.7, Monocytes # (Auto) 0.5, Eosinophils # (Auto) 0.1, Basophils # (Auto) 0.0, Immature Granulocyte # (Auto) 0.1, Neutrophils % (Manual) 85, Lymphocytes % (Manual) 5, Monocytes % (Manual) 5, Metamyelocytes % 1, Band Neutrophils 4, Nucleated Red Blood Cells 1, Platelet Estimate NORMAL, Polychromasia MODERATE, Hypochromasia MARKED, Poikilocytosis MODERATE, Anisocytosis MODERATE, Target Cells SLIGHT, Tear Drop Cells SLIGHT, Elliptocytes SLIGHT, Blood Morphology Comment ABNORMAL, Sodium Level 134, Potassium Level 4.6, Chloride Level 88, Carbon Dioxide Level 35, Anion Gap 11, Blood Urea Nitrogen 28, Creatinine 0.84, Estimat Glomerular Filtration Rate 75, BUN/Creatinine Ratio 33, Glucose Level 229, Calcium Level 8.8, Corrected Calcium 9.6, Total Bilirubin 0.4, Aspartate Amino Transf (AST/SGOT) 12, Alanine Aminotransferase (ALT/SGPT) 8, Alkaline Phosphatase 83, Troponin I < 0.30, Pro-B-Type Natriuretic Peptide 6543.0, Total Protein 7.5, Albumin 3.0 12/03/21 23:13: White Blood Count 11.2, Red Blood Count 2.55, Hemoglobin 5.7, Hematocrit 22, Mean Corpuscular Volume 85, Mean Corpuscular Hemoglobin 22, Mean Corpuscular Hemoglobin Concent 26, Red Cell Distribution Width 21.2, Platelet Count 279, Mean Platelet Volume 10.4, Immature Granulocyte % (Auto) 1, Neutrophils (%) (Auto) 87, Lymphocytes (%) (Auto) 6, Monocytes (%) (Auto) 5, Eosinophils (%) (Auto) 0, Basophils (%) (Auto) 0, Neutrophils # (Auto) 9.8, Lymphocytes # (Auto) 0.7, Monocytes # (Auto) 0.5, Eosinophils # (Auto) 0.0, Basophils # (Auto) 0.0, Immature Granulocyte # (Auto) 0.1 12/03/21 23:33: Coronavirus (COVID-19)(PCR) Negative, Influenza Type A Antigen NEGATIVE, Influenza Type B Antigen NEGATIVE, SARS-CoV-2 RNA (RT-PCR) Not Detected 12/04/21 06:03: White Blood Count 10.2, Red Blood Count 2.72, Hemoglobin 6.2, Hematocrit 23, Mean Corpuscular Volume 85, Mean Corpuscular Hemoglobin 23, Mean Corpuscular Hemoglobin Concent 27, Red Cell Distribution Width 20.6, Platelet Count 279, Mean Platelet Volume 10.7, Immature Granulocyte % (Auto) 2, Neutrophils (%) (Auto) 82, Lymphocytes (%) (Auto) 9, Monocytes (%) (Auto) 7, Eosinophils (%) (Auto) 0, Basophils (%) (Auto) 0, Neutrophils # (Auto) 8.4, Lymphocytes # (Auto) 0.9, Monocytes # (Auto) 0.7, Eosinophils # (Auto) 0.0, Basophils # (Auto) 0.0, Immature Granulocyte # (Auto) 0.2, Sodium Level 132, Potassium Level 4.9, Chloride Level 87, Carbon Dioxide Level 35, Anion Gap 10, Blood Urea Nitrogen 32, Creatinine 0.98, Estimat Glomerular Filtration Rate 62, BUN/Creatinine Ratio 33, Glucose Level 190, Calcium Level 8.5, Corrected Calcium 9.3, Total Bilirubin 0.6, Aspartate Amino Transf (AST/SGOT) 14, Alanine Aminotransferase (ALT/SGPT) 11, Alkaline Phosphatase 65, Total Protein 6.8, Albumin 3.0 12/04/21 06:14: B-Type Natriuretic Peptide 672.6 12/04/21 06:18: Urine Color YELLOW, Urine Clarity CLEAR, Urine pH 5.5, Urine Specific [place] 1.025, Urine Protein TRACE, Urine Glucose (UA) NEGATIVE, Urine Ketones NEGATIVE, Urine Nitrite NEGATIVE, Urine Bilirubin NEGATIVE, Urine Urobilinogen 0.2, Urine Leukocyte Esterase 2+, Urine RBC (Auto) 2+, Urine RBC 0-2, Urine WBC 50-100, Urine Squamous Epithelial Cells 0-2, Urine Crystals NONE, Urine Bacteria MODERATE, Urine Casts NONE, Urine Mucus NEGATIVE, Urine Culture Indicated YES 12/04/21 11:35: Glucometer 140 12/05/21 09:10: White Blood Count 10.6, Red Blood Count 2.85, Hemoglobin 6.8, Hematocrit 24, Mean Corpuscular Volume 85, Mean Corpuscular Hemoglobin 24, Mean Corpuscular Hemoglobin Concent 28, Red Cell Distribution Width 19.5, Platelet Count 258, Mean Platelet Volume 10.1, Immature Granulocyte % (Auto) 2, Neutrophils (%) (Au to) 81, Lymphocytes (%) (Auto) 8, Monocytes (%) (Auto) 9, Eosinophils (%) (Auto) 1, Basophils (%) (Auto) 0, Neutrophils # (Auto) 8.5, Lymphocytes # (Auto) 0.8, Monocytes # (Auto) 0.9, Eosinophils # (Auto) 0.1, Basophils # (Auto) 0.0, Immature Granulocyte # (Auto) 0.2, Sodium Level 133, Potassium Level 4.5, Chloride Level 88, Carbon Dioxide Level 36, Anion Gap 9, Blood Urea Nitrogen 28, Creatinine 0.92, Estimat Glomerular Filtration Rate 67, BUN/Creatinine Ratio 30, Glucose Level 154, Calcium Level 8.5, Corrected Calcium 9.3, Total Bilirubin 0.6, Aspartate Amino Transf (AST/SGOT) 10, Alanine Aminotransferase (ALT/SGPT) 10, Alkaline Phosphatase 69, Total Protein 6.6, Albumin 3.0 12/05/21 20:30: Glucometer 179 12/06/21 05:28: White Blood Count 11.4, Red Blood Count 3.00, Hemoglobin 7.0, Hematocrit 26, Mean Corpuscular Volume 87, Mean Corpuscular Hemoglobin 23, Mean Corpuscular Hemoglobin Concent 27, Red Cell Distribution Width 19.5, Platelet Count 260, Mean Platelet Volume 10.3, Immature Granulocyte % (Auto) 3, Neutrophils (%) (Auto) 71, Lymphocytes (%) (Auto) 9, Monocytes (%) (Auto) 16, Eosinophils (%) (Auto) 0, Basophils (%) (Auto) 0, Neutrophils # (Auto) 8.1, Lymphocytes # (Auto) 1.0, Monocytes # (Auto) 1.8, Eosinophils # (Auto) 0.0, Basophils # (Auto) 0.0, Immature Granulocyte # (Auto) 0.3, Sodium Level 132, Potassium Level 4.1, Chloride Level 84, Carbon Dioxide Level 36, Anion Gap 12, Blood Urea Nitrogen 25, Creatinine 0.91, Estimat Glomerular Filtration Rate 68, BUN/Creatinine Ratio 27, Glucose Level 155, Calcium Level 8.6, Corrected Calcium 9.3, Total Bilirubin 0.4, Aspartate Amino Transf (AST/SGOT) 11, Alanine Aminotransferase (ALT/SGPT) 13, Alkaline Phosphatase 74, Total Protein 6.8, Albumin 3.1 12/06/21 14:01: Lab Scanned Report Transfusion Reaction Form 12/07/21 05:34: White Blood Count 8.6, Red Blood Count 2.70, Hemoglobin 6.4, Hematocrit 23, Mean Corpuscular Volume 86, Mean Corpuscular Hemoglobin 24, Mean Corpuscular Hemoglobin Concent 28, Red Cell Distribution Width 19.7, Platelet Count 263, Mean Platelet Volume 10.5, Immature Granulocyte % (Auto) 2, Neutrophils (%) (Auto) 80, Lymphocytes (%) (Auto) 9, Monocytes (%) (Auto) 9, Eosinophils (%) (Auto) 0, Basophils (%) (Auto) 0, Neutrophils # (Auto) 6.9, Lymphocytes # (Auto) 0.7, Monocytes # (Auto) 0.8, Eosinophils # (Auto) 0.0, Basophils # (Auto) 0.0, Immature Granulocyte # (Auto) 0.2, Sodium Level 127, Potassium Level 4.5, Chloride Level 81, Carbon Dioxide Level 36, Anion Gap 10, Blood Urea Nitrogen 29, Creatinine 1.05, Estimat Glomerular Filtration Rate 57, BUN/Creatinine Ratio 28, Glucose Level 158, Calcium Level 8.5, Corrected Calcium 9.4, Total Bilirubin 0.4, Aspartate Amino Transf (AST/SGOT) 11, Alanine Aminotransferase (ALT/SGPT) 12, Alkaline Phosphatase 64, Total Protein 6.4, Albumin 2.9 12/08/21 05:14: White Blood Count 9.4, Red Blood Count 3.08, Hemoglobin 7.5, Hematocrit 27, Mean Corpuscular Volume 87, Mean Corpuscular Hemoglobin 24, Mean Corpuscular H emoglobin Concent 28, Red Cell Distribution Width 19.5, Platelet Count 254, Mean Platelet Volume 10.4, Immature Granulocyte % (Auto) 2, Neutrophils (%) (Auto) 80, Lymphocytes (%) (Auto) 9, Monocytes (%) (Auto) 10, Eosinophils (%) (Auto) 0, Basophils (%) (Auto) 0, Neutrophils # (Auto) 7.5, Lymphocytes # (Auto) 0.8, Monocytes # (Auto) 0.9, Eosinophils # (Auto) 0.0, Basophils # (Auto) 0.0, Immature Granulocyte # (Auto) 0.1, Sodium Level 125, Potassium Level 4.5, Chloride Level 80, Carbon Dioxide Level 36, Anion Gap 9, Blood Urea Nitrogen 31, Creatinine 1.16, Estimat Glomerular Filtration Rate 51, BUN/Creatinine Ratio 27, Glucose Level 137, Calcium Level 8.6, Corrected Calcium 9.4, Total Bilirubin 0.6, Aspartate Amino Transf (AST/SGOT) 10, Alanine Aminotransferase (ALT/SGPT) 13, Alkaline Phosphatase 64, Total Protein 6.6, Albumin 3.0 12/09/21 05:41: White Blood Count 9.0, Red Blood Count 3.10, Hemoglobin 7.5, Hematocrit 27, Mean Corpuscular Volume 87, Mean Corpuscular Hemoglobin 24, Mean Corpuscular Hemoglobin Concent 28, Red Cell Distribution Width 19.9, Platelet Count 256, Mean Platelet Volume 10.2, Immature Granulocyte % (Auto) 1, Neutrophils (%) (Auto) 81, Lymphocytes (%) (Auto) 9, Monocytes (%) (Auto) 9, Eosinophils (%) (Auto) 0, Basophils (%) (Auto) 0, Neutrophils # (Auto) 7.3, Lymphocytes # (Auto) 0.8, Monocytes # (Auto) 0.8, Eosinophils # (Auto) 0.0, Basophils # (Auto) 0.0, Immature Granulocyte # (Auto) 0.1, Sodium Level 129, Potassium Level 4.5, Chloride Level 81, Carbon Dioxide Level 38, Anion Gap 10, Blood Urea Nitrogen 31, Creatinine 1.11, Estimat Glomerular Filtration Rate 53, BUN/Creatinine Ratio 28, Glucose Level 128, Calcium Level 8.5, Corrected Calcium 9.3, Total Bilirubin 0.7, Aspartate Amino Transf (AST/SGOT) 11, Alanine Aminotransferase (ALT/SGPT) 9, Alkaline Phosphatase 69, Total Protein 6.5, Albumin 3.0, Prothrombin Time 13.7, INR Comment 1.0, Gamma Glutamyl Transpeptidase 16, Ammonia 23 12/10/21 07:36: White Blood Count 10.1, Red Blood Count 3.01, Hemoglobin 7.3, Hematocrit 26, Mean Corpuscular Volume 87, Mean Corpuscular Hemoglobin 24, Mean Corpuscular Hemoglobin Concent 28, Red Cell Distribution Width 20.3, Platelet Count 263, Mean Platelet Volume 10.2, Immature Granulocyte % (Auto) 1, Neutrophils (%) (A uto) 78, Lymphocytes (%) (Auto) 11, Monocytes (%) (Auto) 9, Eosinophils (%) (Auto) 1, Basophils (%) (Auto) 0, Neutrophils # (Auto) 7.8, Lymphocytes # (Auto) 1.1, Monocytes # (Auto) 0.9, Eosinophils # (Auto) 0.1, Basophils # (Auto) 0.0, Immature Granulocyte # (Auto) 0.1, Sodium Level 127, Potassium Level 4.8, Chloride Level 82, Carbon Dioxide Level 33, Anion Gap 12, Blood Urea Nitrogen 29, Creatinine 1.07, Estimat Glomerular Filtration Rate 56, BUN/Creatinine Ratio 27, Glucose Level 179, Calcium Level 8.5, Corrected Calcium 9.4, Total Bilirubin 0.8, Aspartate Amino Transf (AST/SGOT) 9, Alanine Aminotransferase (ALT/SGPT) 11, Alkaline Phosphatase 67, Total Protein 6.5, Albumin 2.9 Discharge Home Medications: Active Scripts Active Pantoprazole Sodium 40 Mg Tablet.dr 40 Mg PO DAILY Xanax Tablet (Alprazolam) 0.25 Mg Tab 0.25 Mg PO Q4HR PRN HYDROcodone/APAP 5 MG/325 MG TAB (Acetaminophen/Hydrocodone Bitart) 1 Tab Tab 1 Ea PO Q4H PRN Reported Ferrous Sulfate 325 Mg Tablet 325 Mg PO BID Tylenol Extra Strength (Acetaminophen) 500 Mg Tablet 1,000 Mg PO HS Neurontin (Gabapentin) 300 Mg Capsule 300 Mg PO BID Eliquis (Apixaban) 5 Mg Tablet 5 Mg PO BID Metformin HCl 1,000 Mg Tablet 1,000 Mg PO BID Potassium Chloride 20 Meq Tab.er.prt 20 Meq PO 1200 Furosemide 40 Mg Tablet 40 Mg PO DAILY Amiodarone HCl 200 Mg Tablet 200 Mg PO DAILY Albuterol Sulfate 2.5 Mg/3 Ml Vial.neb 3 Ml NEB Q4H PRN Instructions to patient/family Please see electronic discharge instructions given to patient. Clinical Quality Measures DVT/VTE Risk/Contraindication: Contraindications-Pharm: Other *list below* Other: severe anemia HARSHA CLARK DO Dec 10, 2021 10:39
--- NOTE | 2021-12-10 11:33 | Progress Note - Hospitalist ---
LAUREN CHURCHILL 12/10/21 1132: Subjective HPI/CC On Admission Date Seen by Provider: Dec 10, 2021 Time Seen by Provider: 10:15 CC: Severe weakness with SOB HPI: 71 yr old WF who lives with her family who has a history of super morbid obesity and a chronic abdominal wall wound who presented to the ER with SOB. She was fully vaccinated against Covid and boosted but PCR hasn't come back but rapid was negative. She was found to have severe anemia with hemoglobin of 6 and repeat was 5.7 with dark stools. She was given a total of 2 units of blood and Dr. Haddad consulted and will perform EGD in the near future. She is very debilitated. Will update social work on the need to be on alert for [facility] admission. Subjective/Events-last exam Colette is a 71 yo F with a past medical history of chronic respiratory failure, COPD, morbid obesity, chronic nonhealing abdominal wound, and atrial fi brillation. She was hospitalized for shortness of breath and anemia. Patient and her family are refusing to do surgery for her hernias. Patient is adamant about wanting to return home to live with her son. During the interview today the patient was in and out of sleep. She had to be woken up twice for the provider to perform an exam. She was very weak and unable to roll on her side for the provider to inspect her back and listen to her lungs. She said she was not in any pain today and was feeling better. Patient looks as if she is continuing to deteriorate from yesterday. Objective Exam Vital Signs Vital Signs Date Time Temp Pulse Resp B/P (MAP) Pulse Ox O2 Delivery O2 Flow Rate FiO2 12/10/21 07:52 36.0 80 20 97/62 (74) 94 Room Air 12/10/21 07:30 5.00 12/04/21 00:04 40 Capillary Refill : General Appearance: Chronically ill, Obese HEENT: PERRL/EOMI Neck: Full Range of Motion, Normal Inspection Respiratory: Chest Non Tender, Wheezing (Lungs were listened to anteriorly, patient had inspiratory wheezes) Cardiovascular: Regular Rate, Rhythm, No Edema, No Murmur Gastrointestinal: Normal Bowel Sounds Extremity: Normal Capillary Refill Neurologic/Psychiatric: Depressed Affect Skin: Normal Color Lymphatic: No Adenopathy Results/Procedures Lab Laboratory Tests 12/10/21 07:36 Patient resulted labs reviewed. Assessment/Plan Assessment and Plan Assess & Plan/Chief Complaint 1) Anemia Hgb at 7.3 today Had an EGD and colonoscopy done which did not find any areas of bleeding Needs to be referred for small bowel capsule study but the patient is not interested in doing that currently 2) COPD exacerbation Condition stable. Patient on nasal canula 5 L of O2 which is what she came to the ER on At home the patient is on 3 L of O2 3)Ventral hernia Wound care is continuing to redress the wound Patient and her family refusing to have surgery done to repair the hernia Patient does not qualify for half-way care placement Will be referred for at home care once discharged Patient continuing to take hydrocodone for pain 4) Atrial fibrillation EKG from 12/09/21 showed atrial fibrillation Home medication of Amiodarone restarted Apixaban withheld due to concern for GI bleed 5)Debility Patient has mcneill catheter placed due to debility Sates that she is usually in a wheel chair Patient is too weak and not willing to work with physical therapy Will need to have at home care to help her 6)Anxiety Patient started on Alprazolam for her anxiety about being at the hospital Hospital course: Colette is a 71yo F with a history of chronic respiratory failure, COPD, morbid obesity, chronic non healing pannus wound, and atrial fibrillation. She came to the ER on 12/03/21 with shortness of breath and hypoxia. She was hospitalized for anemia and exacerbation of COPD. She had 3 transfusions while in the hospital and her hemoglobin is 7.3 upon discharge. She was assessed with an EGD and colonoscopy and no GI bleeds were found. It was recommended that she be referred for a small bowel capsule study but the patient and her family were not interested in a referral at this time. Patient should not take Apixaban until her anemia resolves. Patient is being discharged on 5 L of oxygen with O2 saturations in the low 90% range. At home she is normally on 3L of oxygen. A CT on 12/05/21 showed ventral abdominal hernias with regional cellulitis. Patient and her family are refusing to do surgery for her hernias. Patient is adamant about wanting to return home even though her strength has declined since being admi tted. Patient has refused physical therapy. Palliative care was discussed with social work coordinator and family. Patient does not qualify for a half-way facility. She is being referred for at home care and will need medical transport to leave the hospital. She will be returning to her sons home where she lived before being admitted to the hospital. Diagnosis/Problems Diagnosis/Problems (1) COPD exacerbation Status: Acute (2) Anemia (3) Ventral hernia Clinical Quality Measures DVT/VTE Risk/Contraindication: Contraindications-Pharm: Other *list below* Other: severe anemia JIA CLARK DO 12/11/21 0545: Subjective Subjective/Events-last exam Pt is about the same Mostly unresponsive Xanax and Hydrocodone required to keep her comfortable Very poor prognosis Review of Systems General: Fatigue, Malaise Objective Exam General Appearance: WD/WN, Chronically ill, Obese Respiratory: Wheezing (Lungs were listened to anteriorly, patient had inspiratory wheezes) Assessment/Plan Assessment and Plan Assess & Plan/Chief Complaint Hospice at discharge Supervisory-Addendum Brief Verification & Attestation Participated in pt care: history, MDM, physical Personally performed: exam, history, MDM, supervision of care Care discussed with: Medical Student Procedures: n/a Results interpretation: Verified all documentation Verification and Attestation of Medical Student E/M Service A medical student performed and documented this service in my presence. I reviewed and verified all information documented by the medical student and made modifications to such information, when appropriate. I personally performed the physical exam and medical decision making. Jia Clark, Dec 11, 2021,05:44 LAUREN CHURCHILL Dec 10, 2021 11:32 JIA CLARK DO Dec 11, 2021 05:45
--- NOTE | 2021-12-10 14:11 | Progress Note - Cardiology ---
Cardiology SOAP Progress Note Subjective: Somnolent. Does not report symptoms Objective: I&O/Vital Signs 12/10/21 12/10/21 12/10/21 12/10/21 07:29 07:30 07:52 11:30 Temp 36.0 Pulse 80 Resp 20 B/P (MAP) 97/62 (74) Pulse Ox 96 94 95 O2 Delivery Nasal Cannula Nasal Cannula Room Air Nasal Cannula O2 Flow Rate 5.00 5.00 5.00 12/10/21 00:00 Intake Total 880 ml Output Total 850 ml Balance 30 ml Constitutional: other (somnolent, morbidly obese) Respiratory: No accessory muscle use, No respiratory distress; chest expansion is symmetric, chest is bilaterally symmetric, other (good air entry) Cardiovascular: irregularly irregular; No JVD; S1 and S2, systolic murmur Gastrointestional: No tender; soft; No guarding; audible bowel sounds Extremities: no lower extremity edema bilateral Neurologic/Psychiatric: grossly intact (moves all extremities) Skin: ulcerations (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) Results/Procedures: Labs Laboratory Tests 12/10/21 07:36: White Blood Count 10.1, Red Blood Count 3.01L, Hemoglobin 7.3L, Hematocrit 26L, Mean Corpuscular Volume 87, Mean Corpuscular Hemoglobin 24L, Mean Corpuscular Hemoglobin Concent 28L, Red Cell Distribution Width 20.3H, Platelet Count 263, Mean Platelet Volume 10.2, Immature Granulocyte % (Auto) 1, Neutrophils (%) (A uto) 78H, Lymphocytes (%) (Auto) 11L, Monocytes (%) (Auto) 9, Eosinophils (%) (Auto) 1, Basophils (%) (Auto) 0, Neutrophils # (Auto) 7.8, Lymphocytes # (Auto) 1.1, Monocytes # (Auto) 0.9, Eosinophils # (Auto) 0.1, Basophils # (Auto) 0.0, Immature Granulocyte # (Auto) 0.1, Sodium Level 127L, Potassium Level 4.8, Chloride Level 82L, Carbon Dioxide Level 33H, Anion Gap 12, Blood Urea Nitrogen 29H, Creatinine 1.07, Estimat Glomerular Filtration Rate 56, BUN/Creatinine Ratio 27, Glucose Level 179H, Calcium Level 8.5, Corrected Calcium 9.4, Total Bilirubin 0.8, Aspartate Amino Transf (AST/SGOT) 9, Alanine Aminotransferase (ALT/SGPT) 11, Alkaline Phosphatase 67, Total Protein 6.5, Albumin 2.9L Microbiology 12/04/21 Urine Culture - Preliminary, Resulted Mixed Bacterial Chelly Klebsiella pneumoniae Escherichia coli 12/03/21 MRSA Screen - Final, Complete MRSA not isolated Laboratory Tests 12/09/21 05:41 12/10/21 07:36 A/P: Assessment: Shortness of breath, currently stable Diarrhea - managed by Dr Bowen Anemia of undetermined etiology - managed by Dr Bowen Chronic a-fib (per pt report) - reports taking OAC, but does not know which HTN - controlled DM 2 COPD H/O Iron deficiency anemia Plan: * Once a source of bleeding has been excluded or fully treated, we recommend resumption of oral anticoag. Dr Bowen to decide * Monitor labs * Family deciding on HH vs Hospice today WILMER DUNHAM MD FACP [facility] Dec 10, 2021 14:11
[2021-12-10 15:00] VITALS: BP 117/58
[2021-12-10] MEDS: MELATONIN 3 MG TABLET PO PRN (20:04)
[2021-12-10] MEDS: ACETAMINOPHEN 500 MG TAB (TYLENOL) PO SCH (20:04)
[2021-12-11 00:17] VITALS: BP 110/53
[2021-12-11] MEDS: ALPRAZolam 0.25 MG (XANAX) TAB PO PRN ×2 (05:41→10:18)
[2021-12-11 05:56] LABS: BASOPHILS % (AUTO) 0 % (0-10); EOSINOPHILS % (AUTO) 0 % (0-10); HEMATOCRIT 27 % (35-52); HEMOGLOBIN 7.3 g/dL (11.5-16.0); LYMPHOCYTES # (AUTO) 0.4 10^3/uL (1.0-4.0); LYMPHOCYTES % (AUTO) 3 % (12-44); MEAN CORPUSCULAR HEMOGLOBIN 24 pg (25-34); MEAN CORPUSCULAR HGB CONC 27 g/dL (32-36); MEAN CORPUSCULAR VOLUME 88 fL (80-99); MONOCYTES % (AUTO) 6 % (0-12); NEUTROPHILS # (AUTO) 15.3 10^3/uL (1.8-7.8); NEUTROPHILS % (AUTO) 91 % (42-75); PLATELET COUNT 254 10^3/uL (130-400); WHITE BLOOD COUNT 16.9 10^3/uL (4.3-11.0)
[2021-12-11 06:10] LABS: POTASSIUM 5.2 MMOL/L (3.6-5.0)
[2021-12-11 06:11] LABS: CALCIUM 8.5 MG/DL (8.5-10.1)
[2021-12-11 06:13] LABS: TOTAL PROTEIN 6.7 GM/DL (6.4-8.2)
[2021-12-11 06:16] LABS: CREATININE SERUM 1.01 MG/DL (0.60-1.30)
[2021-12-11 06:19] LABS: BAND NEUTROPHILS 0 %; BASOPHILS % (MANUAL) 0 %; EOSINOPHILS % (MANUAL) 0 %; HYPOCHROMASIA MODERATE; LYMPHOCYTES % (MANUAL) 1 %; MONOCYTES % (MANUAL) 4 %; NEUTROPHILS % (MANUAL) 95 %; POLYCHROMASIA SLIGHT
[2021-12-11 06:20] LABS: ANISOCYTOSIS MODERATE; STOMATOCYTES MODERATE
--- NOTE | 2021-12-11 06:24 | Discharge Summary ---
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 Haddad Supportive care Needs DNR Needs [facility] 12/07/21: Transfuse Needs [facility] candidate in my opinion 12/08/2021: Transfuse as necessary Fluid restriction Patient appears to be end-stage liver disease from Carter Discharge Summary Discharge Physical Examination Allergies: Coded Allergies: No Known Drug Allergies (Unverified , 12/03/21) Vitals & I&Os Vital Signs Date Time Temp Pulse Resp B/P (MAP) Pulse Ox O2 Delivery O2 Flow Rate FiO2 12/11/21 00:17 36.6 85 18 110/53 (72) 100 Non Rebreather 10.00 General Appearance: Other (Lethargic) Hospital Course Was the Problem List Reviewed?: Yes 1) Anemia Hgb at 7.3 today Had an EGD and colonoscopy done which did not find any areas of bleeding Needs to be referred for small bowel capsule study but the patient is not interested in doing that currently 2) COPD exacerbation Condition stable. Patient on nasal canula 5 L of O2 which is what she came to the ER on At home the patient is on 3 L of O2 3)Ventral hernia Wound care is continuing to redress the wound Patient and her family refusing to have surgery done to repair the hernia Patient does not qualify for senior care care placement Will be referred for at home care once discharged Patient continuing to take hydrocodone for pain 4) Atrial fibrillation EKG from 12/09/21 showed atrial fibrillation Home medication of Amiodarone restarted Apixaban withheld due to concern for GI bleed 5)Debility Patient has mcneill catheter placed due to debility Sates that she is usually in a wheel chair Patient is too weak and not willing to work with physical therapy Will need to have at home care to help her 6)Anxiety Patient started on Alprazolam for her anxiety about being at the hospital Hospital course: Colette is a 71yo F with a history of chronic respiratory failure, COPD, morbid obesity, chronic non healing pannus wound, and atrial fibrillation. She came to the ER on 12/03/21 with shortness of breath and hypoxia. She was hospitalized for anemia and exacerbation of COPD. She had 3 transfusions while in the hospital and her hemoglobin is 7.3 upon discharge. She was assessed with an EGD and colonoscopy and no GI bleeds were found. It was recommended that she be referred for a small bowel capsule study but the patient and her family were not interested in a referral at this time. Patient should not take Apixaban until her anemia resolves. Patient is being discharged on 5 L of oxygen with O2 saturations in the low 90% range. At home she is normally on 3L of oxygen. A CT on 12/05/21 showed ventral abdominal hernias with regional cellulitis. Patient and her family are refusing to do surgery for her hernias. Patient is adamant about wanting to return home even though her strength has declined since being admitted. Patient has refused physical therapy. Palliative care was discussed wi vp digital marketing social media and crm and family. Patient does not qualify for a senior care facility. She is being referred for at home care and will need medical transport to leave the hospital. She will be returning to her sons home where she lived before being admitted to the hospital. Discharge Summary Discharge Physical Examination Allergies: Coded Allergies: No Known Drug Allergies (Unverified , 12/03/21) Vitals & I&Os Vital Signs Date Time Temp Pulse Resp B/P (MAP) Pulse Ox O2 Delivery O2 Flow Rate FiO2 12/11/21 12:14 36.0 77 24 122/71 90 Non Rebreather 10.00 Hospital Course Was the Problem List Reviewed?: Yes Hospital course: Colette is a 71yo F with a history of chronic respiratory failure, COPD, morbid obesity, chronic non healing pannus wound, and atrial fibrillation. She came to the ER on 12/03/21 with shortness of breath and hypoxia. She was hospitalized for anemia and exacerbation of COPD. She had 3 transfusions while in the hospital and her hemoglobin is 7.3 upon discharge. She was assessed with an EGD and colonoscopy and no GI bleeds were found. It was recommended that she be referred for a small bowel capsule study but the patient and her family were not interested in a referral at this time. Patient should not take Apixaban until her anemia resolves. Patient is being discharged on 5 L of oxygen with O2 saturations in the low 90% range. At home she is normally on 3L of oxygen. A CT on 12/05/21 showed ventral abdominal hernias with regional cellulitis. Patient and her family are refusing to do surgery for her hernias. Patient is adamant about wanting to return home even though her strength has declined since being admitted. Patient has refused physical therapy. Palliative care was discussed with vp digital marketing social media and crm and family. Patient refused senior care facility. She is being referred for at hospice home care and will need medical transport to leave the hospital. She will be returning to her sons home where she lived before being admitted to the hospital. Labs (last 24 hrs) Laboratory Tests 12/03/21 19:25: White Blood Count 11.3H, Red Blood Count 2.68L, Hemoglobin 6.0*L, Hematocrit 22L , Mean Corpuscular Volume 84, Mean Corpuscular Hemoglobin 22L, Mean Corpuscular Hemoglobin Concent 27L, Red Cell Distribution Width 21.6H, Platelet Count 293, Mean Platelet Volume 11.0, Immature Granulocyte % (Auto) 1, Neutrophils (%) (Auto) 88H, Lymphocytes (%) (Auto) 6L, Monocytes (%) (Auto) 5, Eosinophils (%) (Auto) 0, Basophils (%) (Auto) 0, Neutrophils # (Auto) 9.9H, Lymphocytes # (Auto) 0.7L, Monocytes # (Auto) 0.5, Eosinophils # (Auto) 0.1, Basophils # (Auto) 0.0, Immature Granulocyte # (Auto) 0.1, Neutrophils % (Manual) 85, Lymphocytes % (Manual) 5, Monocytes % (Manual) 5, Metamyelocytes % 1, Band Neutrophils 4, Nucleated Red Blood Cells 1, Platelet Estimate NORMAL, Polychromasia MODERATE, Hypochromasia MARKED, Poikilocytosis MODERATE, Anisocytosis MODERATE, Target Cells SLIGHT, Tear Drop Cells SLIGHT, Elliptocytes SLIGHT, Blood Morphology Comment ABNORMAL, Sodium Level 134L, Potassium Level 4.6, Chloride Level 88L, Carbon Dioxide Level 35H, Anion Gap 11, Blood Urea Nitrogen 28H, Creatinine 0.84, Estimat Glomerular Filtration Rate 75, BUN/Creatinine Ratio 33, Glucose Level 229H, Calcium Level 8.8, Corrected Calcium 9.6, Total Bilirubin 0.4, Aspartate Amino Transf (AST/SGOT) 12, Alanine Aminotransferase (ALT/SGPT) 8, Alkaline Phosphatase 83, Troponin I < 0.30, Pro-B-Type Natriuretic Peptide 6543.0H, Total Protein 7.5, Albumin 3.0L 12/03/21 23:13: White Blood Count 11.2H, Red Blood Count 2.55L, Hemoglobin 5.7*L, Hematocrit 22L , Mean Corpuscular Volume 85, Mean Corpuscular Hemoglobin 22L, Mean Corpuscular Hemoglobin Concent 26L, Red Cell Distribution Width 21.2H, Platelet Count 279, Mean Platelet Volume 10.4, Immature Granulocyte % (Auto) 1, Neutrophils (%) (Auto) 87H, Lymphocytes (%) (Auto) 6L, Monocytes (%) (Auto) 5, Eosinophils (%) (Auto) 0, Basophils (%) (Auto) 0, Neutrophils # (Auto) 9.8H, Lymphocytes # (Auto) 0.7L, Monocytes # (Auto) 0.5, Eosinophils # (Auto) 0.0, Basophils # (Auto) 0.0, Immature Granulocyte # (Auto) 0.1 12/03/21 23:33: Coronavirus (COVID-19)(PCR) Negative, Influenza Type A Antigen NEGATIVE, Influenza Type B Antigen NEGATIVE, SARS-CoV-2 RNA (RT-PCR) Not Detected 12/04/21 06:03: White Blood Count 10.2, Red Blood Count 2.72L, Hemoglobin 6.2*L, Hematocrit 23L, Mean Corpuscular Volume 85, Mean Corpuscular Hemoglobin 23L, Mean Corpuscular Hemoglobin Concent 27L, Red Cell Distribution Width 20.6H, Platelet Count 279, Mean Platelet Volume 10.7, Immature Granulocyte % (Auto) 2, Neutrophils (%) (Auto) 82H, Lymphocytes (%) (Auto) 9L, Monocytes (%) (Auto) 7, Eosinophils (%) (Auto) 0, Basophils (%) (Auto) 0, Neutrophils # (Auto) 8.4H, Lymphocytes # (Auto) 0.9L, Monocytes # (Auto) 0.7, Eosinophils # (Auto) 0.0, Basophils # ( Auto) 0.0, Immature Granulocyte # (Auto) 0.2H, Sodium Level 132L, Potassium Level 4.9, Chloride Level 87L, Carbon Dioxide Level 35H, Anion Gap 10, Blood Urea Nitrogen 32H, Creatinine 0.98, Estimat Glomerular Filtration Rate 62, BUN/Creatinine Ratio 33, Glucose Level 190H, Calcium Level 8.5, Corrected Calcium 9.3, Total Bilirubin 0.6, Aspartate Amino Transf (AST/SGOT) 14, Alanine Aminotransferase (ALT/SGPT) 11, Alkaline Phosphatase 65, Total Protein 6.8, Albumin 3.0L 12/04/21 06:14: B-Type Natriuretic Peptide 672.6H 12/04/21 06:18: Urine Color YELLOW, Urine Clarity CLEAR, Urine pH 5.5, Urine Specific [place] 1.025H, Urine Protein TRACEH, Urine Glucose (UA) NEGATIVE, Urine Ketones NEGATIVE, Urine Nitrite NEGATIVE, Urine Bilirubin NEGATIVE, Urine Urobilinogen 0.2, Urine Leukocyte Esterase 2+H, Urine RBC (Auto) 2+H, Urine RBC 0-2, Urine WBC 50-100H, Urine Squamous Epithelial Cells 0-2, Urine Crystals NONE, Urine Bacteria MODERATEH, Urine Casts NONE, Urine Mucus NEGATIVE, Urine Culture Indicated YES 12/04/21 11:35: Glucometer 140H 12/05/21 09:10: White Blood Count 10.6, Red Blood Count 2.85L, Hemoglobin 6.8*L, Hematocrit 24L, Mean Corpuscular Volume 85, Mean Corpuscular Hemoglobin 24L, Mean Corpuscular Hemoglobin Concent 28L, Red Cell Distribution Width 19.5H, Platelet Count 258, Mean Platelet Volume 10.1, Immature Granulocyte % (Auto) 2, Neutrophils (%) (Auto) 81H, Lymphocytes (%) (Auto) 8L, Monocytes (%) (Auto) 9, Eosinophils (%) (Auto) 1, Basophils (%) (Auto) 0, Neutrophils # (Auto) 8.5H, Lymphocytes # (Auto) 0.8L, Monocytes # (Auto) 0.9, Eosinophils # (Auto) 0.1, Basophils # (Auto) 0.0, Immature Granulocyte # (Auto) 0.2H, Sodium Level 133L, Potassium Level 4.5, Chloride Level 88L, Carbon Dioxide Level 36H, Anion Gap 9, Blood Urea Nitrogen 28H, Creatinine 0.92, Estimat Glomerular Filtration Rate 67, BUN/Creatinine Ratio 30, Glucose Level 154H, Calcium Level 8.5, Corrected Calcium 9.3, Total Bilirubin 0.6, Aspartate Amino Transf (AST/SGOT) 10, Alanine Aminotransferase (ALT/SGPT) 10, Alkaline Phosphatase 69, Total Protein 6.6, Albumin 3.0L 12/05/21 20:30: Glucometer 179H 12/06/21 05:28: White Blood Count 11.4H, Red Blood Count 3.00L, Hemoglobin 7.0L, Hematocrit 26L, Mean Corpuscular Volume 87, Mean Corpuscular Hemoglobin 23L, Mean Corpuscular Hemoglobin Concent 27L, Red Cell Distribution Width 19.5H, Platelet Count 260, Mean Platelet Volume 10.3, Immature Granulocyte % (Auto) 3, Neutrophils (%) (Auto) 71, Lymphocytes (%) (Auto) 9L, Monocytes (%) (Auto) 16H, Eosinophils (%) (Auto) 0, Basophils (%) (Auto) 0, Neutrophils # (Auto) 8.1H, Lymphocytes # (Auto) 1.0, Monocytes # (Auto) 1.8H, Eosinophils # (Auto) 0.0, Basophils # (Auto) 0.0, Immature Granulocyte # (Auto) 0.3H, Sodium Level 132L, Potassium Level 4.1, Chloride Level 84L, Carbon Dioxide Level 36H, Anion Gap 12, Blood Urea Nitrogen 25H, Creatinine 0.91, Estimat Glomerular Filtration Rate 68, BUN/Creatinine Ratio 27, Glucose Level 155H, Calcium Level 8.6, Corrected Calcium 9.3, Total Bilirubin 0.4, Aspartate Amino Transf (AST/SGOT) 11, Alanine Aminotransferase (ALT/SGPT) 13, Alkaline Phosphatase 74, Total Protein 6.8, Albumin 3.1L 12/06/21 14:01: Lab Scanned Report Transfusion Reaction Form 12/07/21 05:34: White Blood Count 8.6, Red Blood Count 2.70L, Hemoglobin 6.4*L, Hematocrit 23L, Mean Corpuscular Volume 86, Mean Corpuscular Hemoglobin 24L, Mean Corpuscular Hemoglobin Concent 28L, Red Cell Distribution Width 19.7H, Platelet Count 263, Mean Platelet Volume 10.5, Immature Granulocyte % (Auto) 2, Neutrophils (%) (Auto) 80H, Lymphocytes (%) (Auto) 9L, Monocytes (%) (Auto) 9, Eosinophils (%) (Auto) 0, Basophils (%) (Auto) 0, Neutrophils # (Auto) 6.9, Lymphocytes # (Auto) 0.7L, Monocytes # (Auto) 0.8, Eosinophils # (Auto) 0.0, Basophils # (Auto) 0.0, Immature Granulocyte # (Auto) 0.2H, Sodium Level 127L, Potassium Level 4.5, Chloride Level 81L, Carbon Dioxide Level 36H, Anion Gap 10, Blood Urea Nitrogen 29H, Creatinine 1.05, Estimat Glomerular Filtration Rate 57, BUN/Creatinine Ratio 28, Glucose Level 158H, Calcium Level 8.5, Corrected Calcium 9.4, Total Bilirubin 0.4, Aspartate Amino Transf (AST/SGOT) 11, Alanine Aminotransferase (ALT/SGPT) 12, Alkaline Phosphatase 64, Total Protein 6.4, Albumin 2.9L 12/08/21 05:14: White Blood Count 9.4, Red Blood Count 3.08L, Hemoglobin 7.5L, Hematocrit 27L, Mean Corpuscular Volume 87, Mean Corpuscular Hemoglobin 24L, Mean Corpuscular Hemoglobin Concent 28L, Red Cell Distribution Width 19.5H, Platelet Count 254, Mean Platelet Volume 10.4, Immature Granulocyte % (Auto) 2, Neutrophils (%) (Auto) 80H, Lymphocytes (%) (Auto) 9L, Monocytes (%) (Auto) 10, Eosinophils (%) (Auto) 0, Basophils (%) (Auto) 0, Neutrophils # (Auto) 7.5, Lymphocytes # (Auto) 0.8L, Monocytes # (Auto) 0.9, Eosinophils # (Auto) 0.0, Basophils # (Auto) 0.0, Immature Granulocyte # (Auto) 0.1, Sodium Level 125*L, Potassium Level 4.5, Chloride Level 80L, Carbon Dioxide Level 36H, Anion Gap 9, Blood Urea Nitrogen 31H, Creatinine 1.16, Estimat Glomerular Filtration Rate 51, BUN/Creatinine Ratio 27, Glucose Level 137H, Calcium Level 8.6, Corrected Calcium 9.4, Total Bilirubin 0.6, Aspartate Amino Transf (AST/SGOT) 10, Alanine Aminotransferase (ALT/SGPT) 13, Alkaline Phosphatase 64, Total Protein 6.6, Albumin 3.0L 12/09/21 05:41: White Blood Count 9.0, Red Blood Count 3.10L, Hemoglobin 7.5L, Hematocrit 27L, Mean Corpuscular Volume 87, Mean Corpuscular Hemoglobin 24L, Mean Corpuscular Hemoglobin Concent 28L, Red Cell Distribution Width 19.9H, Platelet Count 256, Mean Platelet Volume 10.2, Immature Granulocyte % (Auto) 1, Neutrophils (%) (Auto) 81H, Lymphocytes (%) (Auto) 9L, Monocytes (%) (Auto) 9, Eosinophils (%) (Auto) 0, Basophils (%) (Auto) 0, Neutrophils # (Auto) 7.3, Lymphocytes # (Auto) 0.8L, Monocytes # (Auto) 0.8, Eosinophils # (Auto) 0.0, Basophils # (Auto) 0.0, Immature Granulocyte # (Auto) 0.1, Sodium Level 129L, Potassium Level 4.5, Chloride Level 81L, Carbon Dioxide Level 38H, Anion Gap 10, Blood Urea Nitrogen 31H, Creatinine 1.11, Estimat Glomerular Filtration Rate 53, BUN/Creatinine Ratio 28, Glucose Level 128H, Calcium Level 8.5, Corrected Calcium 9.3, Total Bilirubin 0.7, Aspartate Amino Transf (AST/SGOT) 11, Alanine Aminotransferase (ALT/SGPT) 9, Alkaline Phosphatase 69, Total Protein 6.5, Albumin 3.0L, Prothrombin Time 13.7, INR Comment 1.0, Gamma Glutamyl Transpeptidase 16, Ammonia 23 12/10/21 07:36: White Blood Count 10.1, Red Blood Count 3.01L, Hemoglobin 7.3L, Hematocrit 26L, Mean Corpuscular Volume 87, Mean Corpuscular Hemoglobin 24L, Mean Corpuscular Hemoglobin Concent 28L, Red Cell Distribution Width 20.3H, Platelet Count 263, Mean Platelet Volume 10.2, Immature Granulocyte % (Auto) 1, Neutrophils (%) (Auto) 78H, Lymphocytes (%) (Auto) 11L, Monocytes (%) (Auto) 9, Eosinophils (%) (Auto) 1, Basophils (%) (Auto) 0, Neutrophils # (Auto) 7.8, Lymphocytes # (Auto) 1.1, Monocytes # (Auto) 0.9, Eosinophils # (Auto) 0.1, Basophils # (Auto) 0.0, Immature Granulocyte # (Auto) 0.1, Sodium Level 127L, Potassium Level 4.8, Chlor jasvir Level 82L, Carbon Dioxide Level 33H, Anion Gap 12, Blood Urea Nitrogen 29H, Creatinine 1.07, Estimat Glomerular Filtration Rate 56, BUN/Creatinine Ratio 27, Glucose Level 179H, Calcium Level 8.5, Corrected Calcium 9.4, Total Bilirubin 0.8, Aspartate Amino Transf (AST/SGOT) 9, Alanine Aminotransferase (ALT/SGPT) 11, Alkaline Phosphatase 67, Total Protein 6.5, Albumin 2.9L 12/11/21 05:43: White Blood Count 16.9H, Red Blood Count 3.01L, Hemoglobin 7.3L, Hematocrit 27L, Mean Corpuscular Volume 88, Mean Corpuscular Hemoglobin 24L, Mean Corpuscular Hemoglobin Concent 27L, Red Cell Distribution Width 19.7H, Platelet Count 254, Mean Platelet Volume 10.0, Immature Granulocyte % (Auto) 1, Neutrophils (%) (Auto) 91H, Lymphocytes (%) (Auto) 3L, Monocytes (%) (Auto) 6, Eosinophils (%) (Auto) 0, Basophils (%) (Auto) 0, Neutrophils # (Auto) 15.3H, Lymphocytes # (Auto) 0.4L, Monocytes # (Auto) 1.0, Eosinophils # (Auto) 0.0, Basophils # (Auto) 0.0, Immature Granulocyte # (Auto) 0.1, Sodium Level 129L, Potassium Level 5.2H, Chloride Level 83L, Carbon Dioxide Level 35H, Anion Gap 11, Blood Urea Nitrogen 31H, Creatinine 1.01, Estimat Glomerular Filtration Rate 60, BUN/Creatinine Ratio 31, Glucose Level 139H, Calcium Level 8.5, Corrected Calcium 9.3, Total Bilirubin 1.0, Aspartate Amino Transf (AST/SGOT) 13, Alanine Aminotransferase (ALT/SGPT) 8, Alkaline Phosphatase 79, Total Protein 6.7, Albumin 3.0L, Neutrophils % (Manual) 95, Lymphocytes % (Manual) 1, Monocytes % (Manual) 4, Eosinophils % (Manual) 0, Basophils % (Manual) 0, Band Neutrophils 0, Polychromasia SLIGHT, Hypochromasia MODERATE, Anisocytosis MODERATE, Stomatocytes MODERATE Microbiology 12/04/21 Urine Culture - Preliminary, Resulted Klebsiella pneumoniae Escherichia coli Testing In Progress 12/03/21 MRSA Screen - Final, Complete MRSA not isolated Pending Labs Microbiology Date/Time Source Procedure Growth Status 12/04/21 06:50 Urine U Cath,Nos Urine Culture - Preliminary Klebsiella pneumoniae Escherichia coli Testing In Progress Resulted 12/03/21 22:50 Nasal MRSA Screen - Final MRSA not isolated Complete Laboratory Tests 12/03/21 19:25: White Blood Count 11.3, Red Blood Count 2.68, Hemoglobin 6.0, Hematocrit 22, Mean Corpuscular Volume 84, Mean Corpuscular Hemoglobin 22, Mean Corpuscular Hemoglobin Concent 27, Red Cell Distribution Width 21.6, Platelet Count 293, Mean Platelet Volume 11.0, Immature Granulocyte % (Auto) 1, Neutrophils (%) (Auto) 88, Lymphocytes (%) (Auto) 6, Monocytes (%) (Auto) 5, Eosinophils (%) (Auto) 0, Basophils (%) (Auto) 0, Neutrophils # (Auto) 9.9, Lymphocytes # (Auto) 0.7, Monocytes # (Auto) 0.5, Eosinophils # (Auto) 0.1, Basophils # (Auto) 0.0, Immature Granulocyte # (Auto) 0.1, Neutrophils % (Manual) 85, Lymphocytes % (Manual) 5, Monocytes % (Manual) 5, Metamyelocytes % 1, Band Neutrophils 4, Nucleated Red Blood Cells 1, Platelet Estimate NORMAL, Polychromasia MODERATE, Hypochromasia MARKED, Poikilocytosis MODERATE, Anisocytosis MODERATE, Target Cells SLIGHT, Tear Drop Cells SLIGHT, Elliptocytes SLIGHT, Blood Morphology Comment ABNORMAL, Sodium Level 134, Potassium Level 4.6, Chloride Level 88, Carbon Dioxide Level 35, Anion Gap 11, Blood Urea Nitrogen 28, Creatinine 0.84, Estimat Glomerular Filtration Rate 75, BUN/Creatinine Ratio 33, Glucose Level 229, Calcium Level 8.8, Corrected Calcium 9.6, Total Bilirubin 0.4, Aspartate Amino Transf (AST/SGOT) 12, Alanine Aminotransferase (ALT/SGPT) 8, Alkaline Phosphatase 83, Troponin I < 0.30, Pro-B-Type Natriuretic Peptide 6543.0, Total Protein 7.5, Albumin 3.0 12/03/21 23:13: White Blood Count 11.2, Red Blood Count 2.55, Hemoglobin 5.7, Hematocrit 22, Mean Corpuscular Volume 85, Mean Corpuscular Hemoglobin 22, Mean Corpuscular Hemoglobin Concent 26, Red Cell Distribution Width 21.2, Platelet Count 279, Mean Platelet Volume 10.4, Immature Granulocyte % (Auto) 1, Neutrophils (%) (Auto) 87, Lymphocytes (%) (Auto) 6, Monocytes (%) (Auto) 5, Eosinophils (%) (Auto) 0, Basophils (%) (Auto) 0, Neutrophils # (Auto) 9.8, Lymphocytes # (Auto) 0.7, Monocytes # (Auto) 0.5, Eosinophils # (Auto) 0.0, Basophils # (Auto) 0.0, Immature Granulocyte # (Auto) 0.1 12/03/21 23:33: Coronavirus (COVID-19)(PCR) Negative, Influenza Type A Antigen NEGATIVE, Influenza Type B Antigen NEGATIVE, SARS-CoV-2 RNA (RT-PCR) Not Detected 12/04/21 06:03: White Blood Count 10.2, Red Blood Count 2.72, Hemoglobin 6.2, Hematocrit 23, Mean Corpuscular Volume 85, Mean Corpuscular Hemoglobin 23, Mean Corpuscular Hemoglobin Concent 27, Red Cell Distribution Width 20.6, Platelet Count 279, Mean Platelet Volume 10.7, Immature Granulocyte % (Auto) 2, Neutrophils (%) (Auto) 82, Lymphocytes (%) (Auto) 9, Monocytes (%) (Auto) 7, Eosinophils (%) (Auto) 0, Basophils (%) (Auto) 0, Neutrophils # (Auto) 8.4, Lymphocytes # (Auto) 0.9, Monocytes # (Auto) 0.7, Eosinophils # (Auto) 0.0, Basophils # (Auto) 0.0, Immature Granulocyte # (Auto) 0.2, Sodium Level 132, Potassium Level 4.9, Chloride Level 87, Carbon Dioxide Level 35, Anion Gap 10, Blood Urea Nitrogen 32, Creatinine 0.98, Estimat Glomerular Filtration Rate 62, BUN/Creatinine Ratio 33, Glucose Level 190, Calcium Level 8.5, Corrected Calcium 9.3, Total Bilirubin 0.6, Aspartate Amino Transf (AST/SGOT) 14, Alanine Aminotransferase (ALT/SGPT) 11, Alkaline Phosphatase 65, Total Protein 6.8, Albumin 3.0 12/04/21 06:14: B-Type Natriuretic Peptide 672.6 12/04/21 06:18: Urine Color YELLOW, Urine Clarity CLEAR, Urine pH 5.5, Urine Specific [place] 1.025, Urine Protein TRACE, Urine Glucose (UA) NEGATIVE, Urine Ketones NEGATIVE, Urine Nitrite NEGATIVE, Urine Bilirubin NEGATIVE, Urine Urobilinogen 0.2, Urine Leukocyte Esterase 2+, Urine RBC (Auto) 2+, Urine RBC 0-2, Urine WBC 50-100, Urine Squamous Epithelial Cells 0-2, Urine Crystals NONE, Urine Bacteria MODERATE, Urine Casts NONE, Urine Mucus NEGATIVE, Urine Culture Indicated YES 12/04/21 11:35: Glucometer 140 12/05/21 09:10: White Blood Count 10.6, Red Blood Count 2.85, Hemoglobin 6.8, Hematocrit 24, Mean Corpuscular Volume 85, Mean Corpuscular Hemoglobin 24, Mean Corpuscular Hemoglobin Concent 28, Red Cell Distribution Width 19.5, Platelet Count 258, Mean Platelet Volume 10.1, Immature Granulocyte % (Auto) 2, Neutrophils (%) (Aut o) 81, Lymphocytes (%) (Auto) 8, Monocytes (%) (Auto) 9, Eosinophils (%) (Auto) 1, Basophils (%) (Auto) 0, Neutrophils # (Auto) 8.5, Lymphocytes # (Auto) 0.8, Monocytes # (Auto) 0.9, Eosinophils # (Auto) 0.1, Basophils # (Auto) 0.0, Immature Granulocyte # (Auto) 0.2, Sodium Level 133, Potassium Level 4.5, Chloride Level 88, Carbon Dioxide Level 36, Anion Gap 9, Blood Urea Nitrogen 28, Creatinine 0.92, Estimat Glomerular Filtration Rate 67, BUN/Creatinine Ratio 30, Glucose Level 154, Calcium Level 8.5, Corrected Calcium 9.3, Total Bilirubin 0.6, Aspartate Amino Transf (AST/SGOT) 10, Alanine Aminotransferase (ALT/SGPT) 10, Alkaline Phosphatase 69, Total Protein 6.6, Albumin 3.0 12/05/21 20:30: Glucometer 179 12/06/21 05:28: White Blood Count 11.4, Red Blood Count 3.00, Hemoglobin 7.0, Hematocrit 26, Mean Corpuscular Volume 87, Mean Corpuscular Hemoglobin 23, Mean Corpuscular Hemoglobin Concent 27, Red Cell Distribution Width 19.5, Platelet Count 260, Mean Platelet Volume 10.3, Immature Granulocyte % (Auto) 3, Neutrophils (%) (Auto) 71, Lymphocytes (%) (Auto) 9, Monocytes (%) (Auto) 16, Eosinophils (%) (Auto) 0, Basophils (%) (Auto) 0, Neutrophils # (Auto) 8.1, Lymphocytes # (Auto) 1.0, Monocytes # (Auto) 1.8, Eosinophils # (Auto) 0.0, Basophils # (Auto) 0.0, Immature Granulocyte # (Auto) 0.3, Sodium Level 132, Potassium Level 4.1, Chloride Level 84, Carbon Dioxide Level 36, Anion Gap 12, Blood Urea Nitrogen 25, Creatinine 0.91, Estimat Glomerular Filtration Rate 68, BUN/Creatinine Ratio 27, Glucose Level 155, Calcium Level 8.6, Corrected Calcium 9.3, Total Bilirubin 0.4, Aspartate Amino Transf (AST/SGOT) 11, Alanine Aminotransferase (ALT/SGPT) 13, Alkaline Phosphatase 74, Total Protein 6.8, Albumin 3.1 12/06/21 14:01: Lab Scanned Report Transfusion Reaction Form 12/07/21 05:34: White Blood Count 8.6, Red Blood Count 2.70, Hemoglobin 6.4, Hematocrit 23, Mean Corpuscular Volume 86, Mean Corpuscular Hemoglobin 24, Mean Corpuscular Hemoglobin Concent 28, Red Cell Distribution Width 19.7, Platelet Count 263, Mean Platelet Volume 10.5, Immature Granulocyte % (Auto) 2, Neutrophils (%) (Auto) 80, Lymphocytes (%) (Auto) 9, Monocytes (%) (Auto) 9, Eosinophils (%) (Auto) 0, Basophils (%) (Auto) 0, Neutrophils # (Auto) 6.9, Lymphocytes # (Auto) 0.7, Monocytes # (Auto) 0.8, Eosinophils # (Auto) 0.0, Basophils # (Auto) 0.0, Immature Granulocyte # (Auto) 0.2, Sodium Level 127, Potassium Level 4.5, Chloride Level 81, Carbon Dioxide Level 36, Anion Gap 10, Blood Urea Nitrogen 29, Creatinine 1.05, Estimat Glomerular Filtration Rate 57, BUN/Creatinine Ratio 28, Glucose Level 158, Calcium Level 8.5, Corrected Calcium 9.4, Total Bilirubin 0.4, Aspartate Amino Transf (AST/SGOT) 11, Alanine Aminotransferase (ALT/SGPT) 12, Alkaline Phosphatase 64, Total Protein 6.4, Albumin 2.9 12/08/21 05:14: White Blood Count 9.4, Red Blood Count 3.08, Hemoglobin 7.5, Hematocrit 27, Mean Corpuscular Volume 87, Mean Corpuscular Hemoglobin 24, Mean Corpuscular He moglobin Concent 28, Red Cell Distribution Width 19.5, Platelet Count 254, Mean Platelet Volume 10.4, Immature Granulocyte % (Auto) 2, Neutrophils (%) (Auto) 80, Lymphocytes (%) (Auto) 9, Monocytes (%) (Auto) 10, Eosinophils (%) (Auto) 0, Basophils (%) (Auto) 0, Neutrophils # (Auto) 7.5, Lymphocytes # (Auto) 0.8, Monocytes # (Auto) 0.9, Eosinophils # (Auto) 0.0, Basophils # (Auto) 0.0, Immature Granulocyte # (Auto) 0.1, Sodium Level 125, Potassium Level 4.5, Chloride Level 80, Carbon Dioxide Level 36, Anion Gap 9, Blood Urea Nitrogen 31, Creatinine 1.16, Estimat Glomerular Filtration Rate 51, BUN/Creatinine Ratio 27, Glucose Level 137, Calcium Level 8.6, Corrected Calcium 9.4, Total Bilirubin 0.6, Aspartate Amino Transf (AST/SGOT) 10, Alanine Aminotransferase (ALT/SGPT) 13, Alkaline Phosphatase 64, Total Protein 6.6, Albumin 3.0 12/09/21 05:41: White Blood Count 9.0, Red Blood Count 3.10, Hemoglobin 7.5, Hematocrit 27, Mean Corpuscular Volume 87, Mean Corpuscular Hemoglobin 24, Mean Corpuscular Hemoglobin Concent 28, Red Cell Distribution Width 19.9, Platelet Count 256, Mean Platelet Volume 10.2, Immature Granulocyte % (Auto) 1, Neutrophils (%) (Auto) 81, Lymphocytes (%) (Auto) 9, Monocytes (%) (Auto) 9, Eosinophils (%) (Auto) 0, Basophils (%) (Auto) 0, Neutrophils # (Auto) 7.3, Lymphocytes # (Auto) 0.8, Monocytes # (Auto) 0.8, Eosinophils # (Auto) 0.0, Basophils # (Auto) 0.0, Immature Granulocyte # (Auto) 0.1, Sodium Level 129, Potassium Level 4.5, Chloride Level 81, Carbon Dioxide Level 38, Anion Gap 10, Blood Urea Nitrogen 31, Creatinine 1.11, Estimat Glomerular Filtration Rate 53, BUN/Creatinine Ratio 28, Glucose Level 128, Calcium Level 8.5, Corrected Calcium 9.3, Total Bilirubin 0.7, Aspartate Amino Transf (AST/SGOT) 11, Alanine Aminotransferase (ALT/SGPT) 9, Alkaline Phosphatase 69, Total Protein 6.5, Albumin 3.0, Prothrombin Time 13.7, INR Comment 1.0, Gamma Glutamyl Transpeptidase 16, Ammonia 23 12/10/21 07:36: White Blood Count 10.1, Red Blood Count 3.01, Hemoglobin 7.3, Hematocrit 26, Mean Corpuscular Volume 87, Mean Corpuscular Hemoglobin 24, Mean Corpuscular Hemoglobin Concent 28, Red Cell Distribution Width 20.3, Platelet Count 263, Mean Platelet Volume 10.2, Immature Granulocyte % (Auto) 1, Neutrophils (%) (Au to) 78, Lymphocytes (%) (Auto) 11, Monocytes (%) (Auto) 9, Eosinophils (%) (Auto) 1, Basophils (%) (Auto) 0, Neutrophils # (Auto) 7.8, Lymphocytes # (Auto) 1.1, Monocytes # (Auto) 0.9, Eosinophils # (Auto) 0.1, Basophils # (Auto) 0.0, Immature Granulocyte # (Auto) 0.1, Sodium Level 127, Potassium Level 4.8, Chloride Level 82, Carbon Dioxide Level 33, Anion Gap 12, Blood Urea Nitrogen 29, Creatinine 1.07, Estimat Glomerular Filtration Rate 56, BUN/Creatinine Ratio 27, Glucose Level 179, Calcium Level 8.5, Corrected Calcium 9.4, Total Bilirubin 0.8, Aspartate Amino Transf (AST/SGOT) 9, Alanine Aminotransferase (ALT/SGPT) 11, Alkaline Phosphatase 67, Total Protein 6.5, Albumin 2.9 12/11/21 05:43: White Blood Count 16.9, Red Blood Count 3.01, Hemoglobin 7.3, Hematocrit 27, Mean Corpuscular Volume 88, Mean Corpuscular Hemoglobin 24, Mean Corpuscular Hemoglobin Concent 27, Red Cell Distribution Width 19.7, Platelet Count 254, Mean Platelet Volume 10.0, Immature Granulocyte % (Auto) 1, Neutrophils (%) (Auto) 91, Lymphocytes (%) (Auto) 3, Monocytes (%) (Auto) 6, Eosinophils (%) (Auto) 0, Basophils (%) (Auto) 0, Neutrophils # (Auto) 15.3, Lymphocytes # (Auto) 0.4, Monocytes # (Auto) 1.0, Eosinophils # (Auto) 0.0, Basophils # (Auto) 0.0, Immature Granulocyte # (Auto) 0.1, Sodium Level 129, Potassium Level 5.2, Chloride Level 83, Carbon Dioxide Level 35, Anion Gap 11, Blood Urea Nitrogen 31, Creatinine 1.01, Estimat Glomerular Filtration Rate 60, BUN/Creatinine Ratio 31, Glucose Level 139, Calcium Level 8.5, Corrected Calcium 9.3, Total Bilirubin 1.0, Aspartate Amino Transf (AST/SGOT) 13, Alanine Aminotransferase (ALT/SGPT) 8, Alkaline Phosphatase 79, Total Protein 6.7, Albumin 3.0, Neutrophils % (Manual) 95, Lymphocytes % (Manual) 1, Monocytes % (Manual) 4, Eosinophils % (Manual) 0, Basophils % (Manual) 0, Band Neutrophils 0, Polychromasia SLIGHT, Hypochromasia MODERATE, Anisocytosis MODERATE, Stomatocytes MODERATE Discharge Home Medications: Active Scripts Active Pantoprazole Sodium 40 Mg Tablet.dr 40 Mg PO DAILY Xanax Tablet (Alprazolam) 0.25 Mg Tab 0.25 Mg PO Q4HR PRN HYDROcodone/APAP 5 MG/325 MG TAB (Acetaminophen/Hydrocodone Bitart) 1 Tab Tab 1 Ea PO Q4H PRN Reported Ferrous Sulfate 325 Mg Tablet 325 Mg PO BID Tylenol Extra Strength (Acetaminophen) 500 Mg Tablet 1,000 Mg PO HS Neurontin (Gabapentin) 300 Mg Capsule 300 Mg PO BID Amiodarone HCl 200 Mg Tablet 200 Mg PO DAILY Albuterol Sulfate 2.5 Mg/3 Ml Vial.neb 3 Ml NEB Q4H PRN Instructions to patient/family Please see electronic discharge instructions given to patient. Clinical Quality Measures DVT/VTE Risk/Contraindication: Contraindications-Pharm: Other *list below* Other: severe anemia HARSHA CLARK DO Dec 11, 2021 06:24
[2021-12-11] MEDS: RT-ALBUTEROL HFA 8.5 GM INHALER IH SCH (07:08)
[2021-12-11 08:00] VITALS: BP 122/71
[2021-12-11 09:45] VITALS: BP 122/71
--- NOTE | 2021-12-11 10:06 | Progress Note - Cardiology ---
Cardiology SOAP Progress Note Subjective: Lying in bed moaning C/O SOB as before No c/o CP C/O generalized discomfort Objective: I&O/Vital Signs 12/11/21 12/11/21 12/11/21 12/11/21 00:17 07:08 08:00 09:45 Temp 36.6 36.0 36.0 Pulse 85 77 77 Resp 18 24 B/P (MAP) 110/53 (72) 122/71 (88) Pulse Ox 100 95 90 90 O2 Delivery Non Rebreather Non Rebreather Non Rebreather O2 Flow Rate 10.00 10.00 12/11/21 00:00 Intake Total 200 ml Output Total 775 ml Balance -575 ml Constitutional: other (somnolent, morbidly obese) Respiratory: No accessory muscle use, No respiratory distress; chest expansion is symmetric, chest is bilaterally symmetric, other (good air entry) Cardiovascular: irregularly irregular; No JVD; S1 and S2, systolic murmur Gastrointestional: No tender; soft; No guarding; audible bowel sounds Extremities: no lower extremity edema bilateral Neurologic/Psychiatric: grossly intact (moves all extremities) Skin: ulcerations (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) Results/Procedures: Labs Laboratory Tests 12/11/21 05:43: White Blood Count 16.9H, Red Blood Count 3.01L, Hemoglobin 7.3L, Hematocrit 27L, Mean Corpuscular Volume 88, Mean Corpuscular Hemoglobin 24L, Mean Corpuscular Hemoglobin Concent 27L, Red Cell Distribution Width 19.7H, Platelet Count 254, Mean Platelet Volume 10.0, Immature Granulocyte % (Auto) 1, Neutrophils (%) (Auto) 91H, Lymphocytes (%) (Auto) 3L, Monocytes (%) (Auto) 6, Eosinophils (%) (Auto) 0, Basophils (%) (Auto) 0, Neutrophils # (Auto) 15.3H, Lymphocytes # (Auto) 0.4L, Monocytes # (Auto) 1.0, Eosinophils # (Auto) 0.0, Basophils # (Auto) 0.0, Immature Granulocyte # (Auto) 0.1, Neutrophils % (Manual) 95, Lymphocytes % (Manual) 1, Monocytes % (Manual) 4, Eosinophils % (Manual) 0, Basophils % (Manual) 0, Band Neutrophils 0, Polychromasia SLIGHT, Hypochromasia MODERATE, Anisocytosis MODERATE, Stomatocytes MODERATE, Sodium Level 129L, Potassium Level 5.2H, Chloride Level 83L, Carbon Dioxide Level 35H, Anion Gap 11, Blood Urea Nitrogen 31H, Creatinine 1.01, Estimat Glomerular Filtration Rate 60, BUN/Creatinine Ratio 31, Glucose Level 139H, Calcium Level 8.5, Corrected Calcium 9.3, Total Bilirubin 1.0, Aspartate Amino Transf (AST/SGOT) 13, Alanine Aminotransferase (ALT/SGPT) 8, Alkaline Phosphatase 79, Total Protein 6.7, Albumin 3.0L Microbiology 12/04/21 Urine Culture - Preliminary, Resulted Klebsiella pneumoniae Escherichia coli Testing In Progress 12/03/21 MRSA Screen - Final, Complete MRSA not isolated Laboratory Tests 12/10/21 07:36 12/11/21 05:43 A/P: Assessment: Shortness of breath, currently stable Diarrhea - managed by Dr Bowen Abdominal wound d/t chronic fistula - management per medical/surgical services Anemia of undetermined etiology - managed by Dr Bowen Chronic a-fib (per pt report) - reports taking OAC, but does not know which HTN - controlled DM 2 COPD H/O Iron deficiency anemia Plan: * Once a source of bleeding has been excluded or fully treated, we recommend resumption of oral anticoag. Dr Bowen to decide * Monitor labs * Family deciding on HH vs Hospice today HANANE ROTHMAN Dec 11, 2021 10:06
[2021-12-11] MEDS: AMIODARONE 200 MG (CORDARONE) TAB PO SCH (10:18)
[2021-12-11] MEDS: PANTOPRAZOLE 40 MG (PROTONIX) TAB PO SCH (10:18)
[2021-12-11] MEDS: GABAPENTIN 300 MG (NEURONTIN) CAP PO SCH (10:18)
[2021-12-11] MEDS: DOCUSATE SODIUM 100 MG (COLACE) CAP PO SCH (10:18)
[2021-12-11] MEDS: SODIUM CHLORIDE 1 GM TABLET PO SCH (10:28)
--- NOTE | 2021-12-11 12:01 | Progress Note - Cardiology ---
Cardiology SOAP Progress Note Subjective: Gen malaise present Does not report any other symptoms Objective: I&O/Vital Signs 12/11/21 12/11/21 12/11/21 12/11/21 00:17 07:08 08:00 09:45 Temp 36.6 36.0 36.0 Pulse 85 77 77 Resp 18 24 B/P (MAP) 110/53 (72) 122/71 (88) Pulse Ox 100 95 90 90 O2 Delivery Non Rebreather Non Rebreather Non Rebreather O2 Flow Rate 10.00 10.00 12/11/21 00:00 Intake Total 200 ml Output Total 775 ml Balance -575 ml Constitutional: other (somnolent, morbidly obese) Respiratory: No accessory muscle use, No respiratory distress; chest expansion is symmetric, chest is bilaterally symmetric, other (good air entry) Cardiovascular: irregularly irregular; No JVD; S1 and S2, systolic murmur Gastrointestional: No tender; soft; No guarding; audible bowel sounds Extremities: no lower extremity edema bilateral Neurologic/Psychiatric: grossly intact (moves all extremities) Skin: ulcerations (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) Results/Procedures: Labs Laboratory Tests 12/11/21 05:43: White Blood Count 16.9H, Red Blood Count 3.01L, Hemoglobin 7.3L, Hematocrit 27L, Mean Corpuscular Volume 88, Mean Corpuscular Hemoglobin 24L, Mean Corpuscular Hemoglobin Concent 27L, Red Cell Distribution Width 19.7H, Platelet Count 254, Mean Platelet Volume 10.0, Immature Granulocyte % (Auto) 1, Neutrophils (%) (Auto) 91H, Lymphocytes (%) (Auto) 3L, Monocytes (%) (Auto) 6, Eosinophils (%) (Auto) 0, Basophils (%) (Auto) 0, Neutrophils # (Auto) 15.3H, Lymphocytes # (Auto) 0.4L, Monocytes # (Auto) 1.0, Eosinophils # (Auto) 0.0, Basophils # (Auto) 0.0, Immature Granulocyte # (Auto) 0.1, Neutrophils % (Manual) 95, Lymphocytes % (Manual) 1, Monocytes % (Manual) 4, Eosinophils % (Manual) 0, Basophils % (Manual) 0, Band Neutrophils 0, Polychromasia SLIGHT, Hypochromasia MODERATE, Anisocytosis MODERATE, Stomatocytes MODERATE, Sodium Level 129L, Potassium Level 5.2H, Chloride Level 83L, Carbon Dioxide Level 35H, Anion Gap 11, Blood Urea Nitrogen 31H, Creatinine 1.01, Estimat Glomerular Filtration Rate 60, BUN/Creatinine Ratio 31, Glucose Level 139H, Calcium Level 8.5, Corrected Calcium 9.3, Total Bilirubin 1.0, Aspartate Amino Transf (AST/SGOT) 13, Alanine Aminotransferase (ALT/SGPT) 8, Alkaline Phosphatase 79, Total Protein 6.7, Albumin 3.0L Microbiology 12/04/21 Urine Culture - Preliminary, Resulted Klebsiella pneumoniae Escherichia coli Testing In Progress 12/03/21 MRSA Screen - Final, Complete MRSA not isolated Laboratory Tests 12/10/21 07:36 12/11/21 05:43 A/P: Assessment: Shortness of breath, currently stable Abdominal wound d/t chronic fistula - management per medical/surgical services Anemia of undetermined etiology - managed by Dr Bowen Chronic a-fib (per pt report) - reports taking OAC, but does not know which HTN - controlled DM 2 COPD H/o Iron deficiency anemia Plan: * Once a source of bleeding has been excluded or fully treated, we recommend resumption of oral anticoag. Dr Bowen to decide * Monitor labs * Family deciding on HH vs Hospice WILMER DUNHMA MD FACP FAC CCDS Dec 11, 2021 12:01
[2021-12-11 12:14] VITALS: BP 122/71
--- NOTE | 2021-12-13 09:07 | Physician Query Clarification ---
PQ-Further Specificity Admission/Discharge Admission Date: Dec 03, 2021 at 22:30 Discharge Date: Dec 11, 2021 at 13:45 Dr. Bowen, The medical record reflects the following clinical scenario: Clinical Indicators: SOB on admission, per nursing, respiratory rate 16-24, nursing documentation on day of admission of shortness of air with exertion and at rest, shallow respirations, on 5 L O2 currently Sats consistently 90% on 4L P/F 60/01=299 Risk Factor(s): Obesity, Anemia, COPD, Home 02 at approx. 3L continuous Treatment: Supplemental 02 up to 5L, Albuterol, 2 units PRBC's, close monitoring of respiratory status Please clarify if patient has acute on chronic respiratory failure or just chronic respiratory failure. 1. Acute on chronic Respiratory failure, present on admission 2. Chronic respiratory failure 3. Other explanation of clinical findings 4. Unable to determine (no explanation for clinical findings) PHYSICIAN RESPONSE Can you specify per above: 1 Please remember a lack of response to the above will prompt a phone page by [facility]/Coding staff. In responding to this query, please exercise your independent professional judgment. The purpose of this communication is to more accurately reflect the complexity of your patients condition. The fact that a question is asked does not imply that any particular answer is desired or expected. Thank you for your timely response to this clarification. Requestors name: Leonard THIS PHYSICIAN QUERY FORM IS A PERMANENT PART OF THE MEDICAL RECORD LEONARD BHATTI Dec 13, 2021 09:07 HARSHA BOWEN DO Dec 13, 2021 17:14
== END 2021-12-11 13:45 | disposition hospice, home (50) | DRG 811 ==
LOC: EDUNIT# 19:11 → ER FS 19:12 → 4TH 22:30
PROVIDERS: ADMIT Internal Medicine; ATTEND Internal Medicine
PROC: 8E0ZXY6 Isolation (ICD-10-PCS; 2021-12-03)
PROC: 0DJ08ZZ Inspection of Upper Intestinal Tract, Via Natural or Artificial Opening Endoscopic (ICD-10-PCS; 2021-12-04)
PROC: 0DBL8ZX Excision of Transverse Colon, Via Natural or Artificial Opening Endoscopic, Diagnostic (ICD-10-PCS; principal; 2021-12-06 07:29)
DX: D50.9 Iron deficiency anemia, unspecified (principal); J96.20 Acute and chronic respiratory failure, unspecified whether with hypoxia or hypercapnia; J44.1 Chronic obstructive pulmonary disease with (acute) exacerbation; K92.1 Melena; Z68.42 Body mass index [BMI] 45.0-49.9, adult; K63.2 Fistula of intestine; L03.311 Cellulitis of abdominal wall; E87.1 Hypo-osmolality and hyponatremia; E66.01 Morbid (severe) obesity due to excess calories; K63.5 Polyp of colon; K29.70 Gastritis, unspecified, without bleeding; K43.9 Ventral hernia without obstruction or gangrene; F32.A Depression, unspecified; G62.9 Polyneuropathy, unspecified; K72.90 Hepatic failure, unspecified without coma; K75.81 Nonalcoholic steatohepatitis (NASH); F41.9 Anxiety disorder, unspecified; K44.9 Diaphragmatic hernia without obstruction or gangrene; R19.7 Diarrhea, unspecified; Z99.3 Dependence on wheelchair; Z79.52 Long term (current) use of systemic steroids; Z20.822 Contact with and (suspected) exposure to COVID-19
CPT/HCPCS: 36415; 71045; 74176; 80053; 81000; 82140; 82947; 82977; 83880; 84484; 85007; 85025; 85027; 85610; 86850; 86900; 86901; 86920; 87077; 87081; 87088; 87186; 87635; 87636; 87804; 88305; 93005; 93306; 94640; 94664; 94760